=== PATIENT | female | born 1945 | race Caucasian/White ===

== ENCOUNTER → 2018-01-02 | Outpatient (CLI) | payer MEDICARE ==
--- NOTE | 2018-01-03 11:57 | MM ---
Reason for exam: screening (asymptomatic). Last mammogram was performed 1 year and 3 months ago. History: Patient is postmenopausal. Benign MG pre op needle loc RT of the right breast, October 18, 2014. Benign MG stereo VAD BX RT of the right breast, October 04, 2014. Took hormonal contraceptives for 13 years. Took estrogen for 3 years. Took progesterone for 3 years. Physical Findings: A clinical breast exam by your physician is recommended on an annual basis and results should be correlated with mammographic findings. MG 3D Screening Mammo W/Cad Bilateral CC and MLO view(s) were taken. Prior study comparison: October 01, 2016, bilateral MG 3d screening mammo w/cad. April 05, 2016, right breast MG 3d diag mammo w/cad RT. Finding #1: There is stable architectural distortion in the right breast consistent with previous surgery. Finding #2: There are typically benign calcifications in both breasts. There is a chronic nodularity in the left breast. No significant changes in finding since October 01, 2016 and April 05, 2016. ASSESSMENT: Benign, BI-RAD 2 RECOMMENDATION: Routine screening mammogram of both breasts in 1 year.
== END | disposition home or self-care (01) ==
LOC: RADMAMWWP 08:21
PROVIDERS: ATTEND Family Medicine
DX: Z12.31 Encounter for screening mammogram for malignant neoplasm of breast (principal)
CPT/HCPCS: 77063; 77067

== ENCOUNTER → 2019-01-08 | Outpatient (CLI) | payer MEDICARE ==
--- NOTE | 2019-01-09 09:57 | MM ---
Reason for exam: screening (asymptomatic). Last mammogram was performed 1 year ago. History: Patient is postmenopausal. Benign MG pre op needle loc RT of the right breast, October 18, 2014. Benign MG stereo VAD BX RT of the right breast, October 04, 2014. Took hormonal contraceptives for 13 years. Took estrogen for 3 years. Took progesterone for 3 years. Physical Findings: A clinical breast exam by your physician is recommended on an annual basis and results should be correlated with mammographic findings. MG 3D Screening Mammo W/Cad Bilateral CC and MLO view(s) were taken. Prior study comparison: January 02, 2018, bilateral MG 3d screening mammo w/cad. October 01, 2016, bilateral MG 3d screening mammo w/cad. The breast tissue is heterogeneously dense. This may lower the sensitivity of mammography. No significant changes when compared with prior studies. ASSESSMENT: Benign, BI-RAD 2 RECOMMENDATION: Routine screening mammogram of both breasts in 1 year.
== END | disposition home or self-care (01) ==
LOC: RADMAMWWP 10:10
PROVIDERS: ATTEND Family Medicine
DX: Z12.31 Encounter for screening mammogram for malignant neoplasm of breast (principal)
CPT/HCPCS: 77063; 77067

== ENCOUNTER 2019-09-17 20:10 | Emergency (ER) | payer MEDICARE ==
[2019-09-17] MEDS ORDERED: KETOROLAC 30 MG/ML 1 ML VIAL IM STA (20:49)
--- NOTE | 2019-09-17 20:50 | ED ---
Fall HPI - General Chief Complaint: Fall Stated Complaint: fall/knee & face pain Time Seen by Provider: 09/17/19 20:33 Source: patient, family Mode of arrival: ambulatory - History of Present Illness Initial Comments: Patient is 74-year-old female presenting to emergency Department with a chief complaint of a fall. Patient reports incident occurred earlier today when she tripped over a rug and fell forward causing trauma to the head. Patient reports facial bruising on the right side. Patient also reports pain in the right wrist and right knee. Patient reports she saw a full range of motion in both joints. Patient denies headache, loss of consciousness time of incident. Patient denies any nausea vomiting diarrhea. Patient denies any blurry vision or pain with extraocular movements. Patient denies any bleeding due to the injury. Patient is not on blood thinners. Patient denies taking medication to alleviate the symptoms. - Related Data Home Medications Medication Instructions Recorded Confirmed Citalopram Hydrobromide [CeleXA] 30 mg PO DAILY 04/02/14 08/21/17 Nadolol [Corgard] 40 mg PO HS 04/02/14 08/21/17 Omeprazole [PriLOSEC] 20 mg PO AC-BRKFST 04/02/14 08/21/17 Oxybutynin Chloride [Ditropan XL] 10 mg PO DAILY 04/02/14 08/21/17 Aspirin 81 mg PO DAILY 07/23/14 08/21/17 Amoxicillin 2,000 mg PO DIRECTED PRN 08/21/17 08/21/17 Atorvastatin Calcium [Lipitor] 20 mg PO DAILY 08/21/17 08/21/17 Lisinopril [Zestril] 20 mg PO DAILY 08/21/17 08/21/17 Vitamin C/Biotin [Hair, Skin and 1 tab PO DAILY 08/21/17 08/21/17 Nails] Allergies Allergy/AdvReac Type Severity Reaction Status Date / Time amoxicillin Allergy Rash/Hives Verified 09/17/19 20:28 cephalexin Allergy Rash/Hives Verified 09/17/19 20:28 clindamycin Allergy Rash/Hives Verified 09/17/19 20:28 tetracycline [Tetracycline] AdvReac Severe Nausea & Verified 09/17/19 20:27 Vomiting Review of Systems ROS Statement: Those systems with pertinent positive or pertinent negative responses have been documented in the HPI. ROS Other: All systems not noted in ROS Statement are negative. Past Medical History Past Medical History: GERD/Reflux, Hyperlipidemia, Hypertension Additional Past Medical History / Comment(s): migraines, aortic valve leakage History of Any Multi-Drug Resistant Organisms: None Reported Past Surgical History: Bladder Surgery, Joint Replacement, Tubal Ligation Additional Past Surgical History / Comment(s): ANDRZEJ KNEE REPLACEMENT, BLADDER SLING Past Anesthesia/Blood Transfusion Reactions: No Reported Reaction Past Psychological History: No Psychological Hx Reported Smoking Status: Never smoker Past Alcohol Use History: Daily Past Drug Use History: None Reported - Past Family History Sister(s) Family Medical History: Cancer, Pulmonary Embolus General Exam Limitations: no limitations General appearance: alert, in no apparent distress Head exam: Present: normocephalic. Absent: atraumatic (Facial bruising on the right side. Hematoma in the right infraorbital region. Some bruising on the nose. No septal hematoma.), normal inspection, other (Negative Bernal sign, negative hemotympanum, negative raccoon eyes.) Eye exam: Present: normal appearance, PERRL Pupils: Present: normal accommodation ENT exam: Present: normal exam, normal oropharynx (No oral trauma), mucous membranes moist, TM's normal bilaterally, normal external ear exam Neck exam: Present: normal inspection, full ROM Respiratory exam: Present: normal lung sounds bilaterally Cardiovascular Exam: Present: regular rate, normal rhythm, normal heart sounds Extremities exam: Present: normal inspection, full ROM Back exam: Present: normal inspection, full ROM Neurological exam: Present: alert, oriented X3 Psychiatric exam: Present: normal affect, normal mood Skin exam: Present: warm, dry, intact, normal color Course Vital Signs 09/17/19 09/17/19 20:28 21:31 Temperature 98.5 F Pulse Rate 61 80 Respiratory 16 18 Rate Blood Pressure 137/83 132/81 O2 Sat by Pulse 98 97 Oximetry Medical Decision Making - Medical Decision Making Patient is 74-year-old female presenting to emergency Department with chief complaint of a fall. Patient should directed and fell forward causing some trauma to the head, right knee and wrist. Physical exam is indicative of some facial bruising on the right side with a facial hematoma in the infraorbital region. There is some tenderness at the right knee inferior to the patella. Exam is also indicative of some mild tenderness along the medial aspect of the right wrist. Patient has full range of motion in the knee and the wrist. X- rays of the chest knee and wrist are negative. CT of brain and C-spine is negative for acute hemorrhage, fractures or midline shift. Facial CT is also showing facial hematoma and abrasions of injury. Patient is not on blood thinners. Patient vised alternate between Tylenol and ibuprofen for pain control. Strict return parameters were thoroughly discussed the patient is understanding ago. Case discussed with physician. Disposition Clinical Impression: Fall, Traumatic ecchymosis of face Disposition: HOME SELF-CARE Condition: Stable Instructions (If sedation given, give patient instructions): Fall Prevention (ED) Additional Instructions: Please follow up primary care. Please return to emergency department if symptoms worsen. Is patient prescribed a controlled substance at d/c from ED?: No Referrals: Ro Barrett MD [Primary Care Provider] - 1-2 days Time of Disposition: 22:18
--- NOTE | 2019-09-17 21:23 | CT ---
EXAMINATION TYPE: CT facial bones wo con DATE OF EXAM: 09/17/2019 COMPARISON: None HISTORY: Fall, bilateral orbital bruising. CT DLP: 1183.7 mGycm Automated exposure control for dose reduction was used. TECHNIQUE: CT scan of the sinuses is performed without contrast, axial images are obtained, coronal r eformatted images are also reviewed. FINDINGS: The mandibular ring is intact. Temporomandibular joints appear normal. Zygomatic arches dinorah ear normal. Nasal bone is intact. Orbital margins are intact. There is no evidence of a blowout fract ure. Maxilla is intact. There is minimal ethmoid sinus mucosal thickening on the left side. There is mucosal thickening left side of the sphenoid sinus. I see no bony destructive process. IMPRESSION: There is some left-sided sphenoid and ethmoid sinusitis. No fracture seen. Right frontal scalp soft tissue swelling noted. Right frontal scalp hematoma.
--- NOTE | 2019-09-17 21:25 | CT ---
EXAMINATION TYPE: CT brain feliz benson DATE OF EXAM: 09/17/2019 COMPARISON: None HISTORY: Fall, bilateral orbital bruising. CT DLP: 1183.7 mGycm Automated exposure control for dose reduction was used. TECHNIQUE: CT scan of the head and cervical spine are performed without contrast. FINDINGS: Ventricles have normal size. There is no mass effect nor midline shift. There is no sign of intracranial hemorrhage. There is mild atrophy appropriate for age. Calvarium is intact. There is right frontal scalp hematoma. The skull base is intact. There is some straightening of the cervical spine. There is a a few millimeter anterior subluxation o f C3 in relation to C4. There is narrowing of C4-5 C5-6 disc spaces with spurring. There is no compre ssion fracture. Posterior elements are intact. There is mild hypertrophic multilevel facet arthropath y. 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 Degenerative subluxation at C3-4. No fracture s een. Right frontal scalp hematoma. No intracranial abnormality.
--- NOTE | 2019-09-17 21:26 | XR ---
EXAMINATION TYPE: XR wrist complete RT DATE OF EXAM: 09/17/2019 COMPARISON: NONE HISTORY: Wrist pain TECHNIQUE: 4 views FINDINGS: There is narrowing and spurring at the first carpometacarpal joint. There is narrowing and spurring at the scaphoid trapezium joint. There are small degenerative cystic changes in the lunate a nd scaphoid bone. Distal radius and ulna appear intact. IMPRESSION: No fracture seen. Osteoarthritic changes.
[2019-09-17 21:38] VITALS: RESP 18
--- NOTE | 2019-09-17 22:03 | XR ---
EXAMINATION TYPE: XR knee complete RT DATE OF EXAM: 09/17/2019 COMPARISON: NONE HISTORY: Knee pain TECHNIQUE: 3 views FINDINGS: There is knee prosthesis. I see no fracture nor dislocation. I see no sign of loosening. IMPRESSION: No fracture seen.
--- NOTE | 2019-09-17 22:04 | XR ---
EXAMINATION TYPE: XR chest 2V DATE OF EXAM: 09/17/2019 COMPARISON: 08/21/2017 HISTORY: Pain TECHNIQUE: Frontal and lateral views of the chest are obtained. FINDINGS: Heart and mediastinum are normal. Lungs are clear. Diaphragm is normal. Bony thorax is int act. IMPRESSION: Normal chest. No change.
[2019-09-17 22:26] VITALS: BP 144/84; PULSE 71; TEMP 98
== END 2019-09-17 22:26 | disposition home or self-care (01) ==
LOC: EC 20:10
DX: S00.33XA Contusion of nose, initial encounter (principal); S00.83XA Contusion of other part of head, initial encounter; S89.91XA Unspecified injury of right lower leg, initial encounter; S69.91XA Unspecified injury of right wrist, hand and finger(s), initial encounter; K21.9 Gastro-esophageal reflux disease without esophagitis; E78.5 Hyperlipidemia, unspecified; I10 Essential (primary) hypertension; Z88.0 Allergy status to penicillin; Z88.1 Allergy status to other antibiotic agents; Z79.82 Long term (current) use of aspirin; Z79.899 Other long term (current) drug therapy; Z86.79 Personal history of other diseases of the circulatory system; Z96.653 Presence of artificial knee joint, bilateral; W01.0XXA Fall on same level from slipping, tripping and stumbling without subsequent striking against object, initial encounter; Y92.009 Unspecified place in unspecified non-institutional (private) residence as the place of occurrence of the external cause
CPT/HCPCS: 73110; 73562; 71046; 72125; 70486; 70450; 99284; 96372; J1885

== ENCOUNTER → 2020-05-03 | Outpatient (CLI) | payer MEDICARE ==
--- NOTE | 2020-05-03 16:22 | BD ---
EXAMINATION TYPE: Axial Bone Density DATE OF EXAM: 05/03/2020 COMPARISON: NONE CLINICAL HISTORY: 74 YR OLD FEMALE...ICD-10 CODE: M81.0 OSTEOPOROSIS Height: 62.5 Weight: 175 FRAX RISK QUESTIONS: History of Fracture in Adulthood: YES RISK FACTORS HISTORY OF: HX OF RT HUMERUS FX AND RT ANKLE, OVER THE AGE OF 51 WHEN OCCURED Postmenopausal woman: YES, AT AGE 53 Take estrogen and/or progesterone medications: IN THE PAST FOR ABOUT 3 YRS, NONE NOW Lost more than 2 inches in height since high school: YES Hyperparathyroidism: NO Adrenal Insufficiency: NO MEDICATIONS: Osteoporosis Medications: YES, FOSAMAX, 6 MOS Additional Medications: BP MEDS, CELEXA, REFLUX MEDS, STATIN FOR CHOLESTEROL, CALCIUM AND VIT D Additional History: HYPERTENSION, CHOLESTEROL, REFLUX EXAM MEASUREMENTS: Bone mineral densitometry was performed using the [employer] System. Bone mineral density as measured about the Lumbar spine is: ----- L1-L4(G/cm2): 1.263 T Score Values are as follows: ----- L1: -0.3 ----- L2: 0.4 ----- L3: 0.6 ----- L4: 1.9 ----- L1-L4: 0.7 Bone mineral density THIS IS PTS FIRST BONE DENSITY STUDY WITH [facility] Bone mineral density about the R hip (g/cm2): 0.751 Bone mineral density about the L hip (g/cm2): 0.744 T Score values are as follows: -----R Neck: -2.2 -----L Neck: -2.6 -----R Total: -2.0 -----L Total: -2.1 Bone mineral density FIRST BONE DENSITY STUDY WITH [facility] FRAX%s: THERE IS A 24.8% CHANCE FOR A MAJOR OSTEOPOROTIC FX AND A 7.5% FOR HIP....PROBABILITY FOR F X IN 10 YRS TIME IMPRESSION: Osteoporosis (T Score less than -2.5). There is increased fracture risk and therapy is usually indicated based on age. Re-Screen 1-2 years. NOTE: T-SCORE=SD OF THE YOUNG ADULT MEAN.
--- NOTE | 2020-05-04 13:30 | MM ---
Reason for exam: screening (asymptomatic). Last mammogram was performed 1 year and 4 months ago. History: Patient is postmenopausal. Benign MG pre op needle loc RT of the right breast, October 18, 2014. Benign MG stereo VAD BX RT of the right breast, October 04, 2014. Took hormonal contraceptives for 13 years. Took estrogen for 3 years. Took progesterone for 3 years. Physical Findings: A clinical breast exam by your physician is recommended on an annual basis and results should be correlated with mammographic findings. MG 3D Screening Mammo W/Cad Bilateral CC and MLO view(s) were taken. Prior study comparison: January 08, 2019, bilateral MG 3d screening mammo w/cad. January 02, 2018, bilateral MG 3d screening mammo w/cad. There are scattered fibroglandular densities. No significant changes when compared with prior studies. ASSESSMENT: Benign, BI-RAD 2 RECOMMENDATION: Routine screening mammogram of both breasts in 1 year.
== END | disposition home or self-care (01) ==
LOC: RADMAMWWP 08:10
PROVIDERS: ATTEND Family Medicine
DX: Z12.31 Encounter for screening mammogram for malignant neoplasm of breast (principal); M81.0 Age-related osteoporosis without current pathological fracture
CPT/HCPCS: 77063; 77067; 77080

== ENCOUNTER → 2020-05-26 | Outpatient (CLI) | payer MEDICARE ==
[2020-05-26 08:57] LABS: African American GFR (CKD) >90 (>60 ml/min/1.73 sqM); Blood Urea Nitrogen 17 mg/dL (7-17); Non-African American GFR(CKD) 79 (>60 ml/min/1.73 sqM)
--- NOTE | 2020-05-26 10:30 | CT ---
EXAMINATION TYPE: CT angio neck DATE OF EXAM: 05/26/2020 HISTORY: Vertigo with unsteady gait COMPARISON: CT brain 09/17/2019 CT DLP: 336 mGycm. Automated Exposure Control for Dose Reduction was Utilized. TECHNIQUE: CTA scan of the neck is performed with IV Contrast, patient injected with 65 mL of Isovue 370, axial images are obtained, coronal and sagittal reformatted images are reviewed. Three-D recons tructed images are created on an independent workstation and reviewed. FINDINGS: Hypertrophic and degenerative change of the spine. Mild generalized degenerative changes. E xtensive changes of sinusitis involving the left ethmoid and maxillary sinuses. Standard three-vessel anatomy. Carotid bifurcations are widely patent bilaterally with no significant stenosis. IMPRESSION: 1. No significant abnormality is seen. 2. Severe left-sided chronic sinusitis
== END | disposition home or self-care (01) ==
LOC: RADCTMAIN 08:24
PROVIDERS: ATTEND Family Medicine
DX: R42 Dizziness and giddiness (principal)
CPT/HCPCS: 82565; 84520; 70498; 36415; Q9967

== ENCOUNTER → 2020-09-09 | Outpatient (CLI) | payer MEDICARE ==
[~2020-09-09] MED LIST: SODIUM CHLORIDE 0.9% 500 ML 500 ML in EMPTY BAG 1 BAG IV PRN; ZOLEDRONIC ACID 5 MG in SODIUM CHLORIDE 0.9% 100 ML IV NR
[2020-09-09 10:44] VITALS: BP 152/60; PULSE 52; RESP 16; TEMP 97.8
== END | disposition home or self-care (01) ==
LOC: PROCWHC3 10:35
PROVIDERS: ATTEND Family Medicine
DX: M81.0 Age-related osteoporosis without current pathological fracture (principal)
CPT/HCPCS: 96365; J3489

== ENCOUNTER → 2021-05-16 | Outpatient (CLI) | payer MEDICARE ==
--- NOTE | 2021-05-16 13:05 | MM ---
Reason for exam: screening (asymptomatic). Last mammogram was performed 1 year ago. History: Patient is postmenopausal. Benign MG pre op needle loc RT of the right breast, October 18, 2014. Benign MG stereo VAD BX RT of the right breast, October 04, 2014. Took hormonal contraceptives for 13 years. Took estrogen for 3 years. Took progesterone for 3 years. Physical Findings: A clinical breast exam by your physician is recommended on an annual basis and results should be correlated with mammographic findings. MG 3D Screening Mammo W/Cad Bilateral CC and MLO view(s) were taken. Prior study comparison: May 03, 2020, bilateral MG 3d screening mammo w/cad. January 08, 2019, bilateral MG 3d screening mammo w/cad. There are scattered fibroglandular densities. There is a grouping of calcifications in the right outer central breast at middle depth and diagnostic mammogram is recommended. Post operative right breast. ASSESSMENT: Incomplete: need additional imaging evaluation, BI-RAD 0 RECOMMENDATION: Special view mammogram of the right breast. [facility] will attempt to contact patient to return for supplemental views.
== END | disposition home or self-care (01) ==
LOC: RADMAMWWP 08:20
PROVIDERS: ATTEND Family Medicine
DX: Z12.31 Encounter for screening mammogram for malignant neoplasm of breast (principal)
CPT/HCPCS: 77063; 77067

== ENCOUNTER → 2021-05-30 | Outpatient (CLI) | payer MEDICARE ==
--- NOTE | 2021-05-30 12:06 | MM ---
Reason for exam: additional evaluation requested from abnormal screening. Last mammogram was performed less than 1 month ago. History: Patient is postmenopausal. Benign MG pre op needle loc RT of the right breast, October 18, 2014. Benign MG stereo VAD BX RT of the right breast, October 04, 2014. Took hormonal contraceptives for 13 years. Took estrogen for 3 years. Took progesterone for 3 years. Physical Findings: Nurse did not find any significant physical abnormalities on exam. MG 3D Work Up W/Cad RT CC with magnification, ML with magnification, and ML view(s) were taken of the right breast. Prior study comparison: May 16, 2021, bilateral MG 3d screening mammo w/cad. May 03, 2020, bilateral MG 3d screening mammo w/cad. January 08, 2019, bilateral MG 3d screening mammo w/cad. January 02, 2018, bilateral MG 3d screening mammo w/cad. There are scattered fibroglandular densities. Heterogeneous segmental calcifications spanning 3.5cm 8 o'clock right breast are suspicious. These results were verbally communicated with the patient and result sheet given to the patient on 05/30/21. ASSESSMENT: Suspicious, BI-RAD 4 RECOMMENDATION: Stereotactic core biopsy of the right breast. Called office with mammographic findings and has scheduled an appointment for the patient for 06/09/[address] Barrett. Biopsy scheduled for 06/05/21 at 10:30. PRELIMINARY REPORT CALLED AND FAXED TO DR. BARRETT ON 05/30/21.
== END | disposition home or self-care (01) ==
LOC: RADMAMWWP 10:26
PROVIDERS: ATTEND Family Medicine
DX: R92.8 Other abnormal and inconclusive findings on diagnostic imaging of breast (principal)
CPT/HCPCS: 77065; G0279; 77061

== ENCOUNTER → 2021-06-05 | Day surgery (SDC) | payer MEDICARE ==
[2021-06-05 09:57] VITALS: RESP 16
[2021-06-05 11:59] VITALS: BP 132/70; PULSE 52; TEMP 98.5
--- NOTE | 2021-06-05 14:08 | MM ---
EXAMINATION TYPE: MG stereo VAD BX RT DATE OF EXAM: 06/05/2021 COMPARISON: 05/30/2021 mammogram CLINICAL HISTORY: Abnormal calcifications TECHNIQUE: Stereotactic guided core biopsy of right breast. FINDINGS: The procedure of stereotactic guided core biopsy was explained to the patient. Benefits, alternatives, and risks were discussed. An informed consent was then obtained. [facility] Shortness pathway was lateral approach. Dr. Lindo performed targeting and the procedure. A vacuum assisted biopsy gun was used to obtain multiple (6) core samples. The patient tolerated the procedure well without any immediate complication. The patient was kept in the radiology department for short stay after the procedure and then discharged home in stable condition. Specimen radiograph: Targeted calcifications are identified in specimen mammogram. Post biopsy mammogram shows the clip to appear in satisfactory position relative to the targeted area of concern on the preprocedure images. IMPRESSION: 1. 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 Recommendation Surgical consult of the right breast. Note that there are residual microcalcifications which should be included in the excision. MTDD
== END ==
LOC: RADMAMWWP 09:48
PROVIDERS: ATTEND Family Medicine
DX: D05.11 Intraductal carcinoma in situ of right breast (principal); Z17.0 Estrogen receptor positive status [ER+]; Z88.1 Allergy status to other antibiotic agents; Z88.0 Allergy status to penicillin
CPT/HCPCS: 19081; 88305; 88342; 88341; A4648; J2001

== ENCOUNTER → 2021-06-05 | Outpatient (CLI) | payer MEDICARE ==
--- NOTE | 2021-06-05 14:08 | MM ---
EXAMINATION TYPE: MG stereo VAD BX RT DATE OF EXAM: 06/05/2021 COMPARISON: 05/30/2021 mammogram CLINICAL HISTORY: Abnormal calcifications TECHNIQUE: Stereotactic guided core biopsy of right breast. FINDINGS: The procedure of stereotactic guided core biopsy was explained to the patient. Benefits, a lternatives, and risks were discussed. An informed consent was then obtained. The [facility] pathway for biopsy was chosen. Shortness pathway was lateral approach. Dr. Lindo per formed targeting and the procedure. A vacuum assisted biopsy gun was used to obtain multiple (6) cor e samples. The patient tolerated the procedure well without any immediate complication. The patient was kept in the radiology department for short stay after the procedure and then discharged home in stable condi tion. Specimen radiograph: Targeted calcifications are identified in specimen mammogram. Post biopsy mammogram shows the clip to appear in satisfactory position relative to the targeted area of concern on the preprocedure images. IMPRESSION: 1. Successful stereotactic core biopsy right breast calcifications
== END | disposition home or self-care (01) ==
LOC: LABWHC1 09:35
PROVIDERS: ATTEND Radiology Diagnostic Radiology
DX: Z09 Encounter for follow-up examination after completed treatment for conditions other than malignant neoplasm (principal)
CPT/HCPCS: 19081; A4648

== ENCOUNTER → 2021-06-22 | Outpatient (CLI) | payer MEDICARE ==
[2021-06-22 11:14] VITALS: BP 152/80; PULSE 58; RESP 18; TEMP 98.4
--- NOTE | 2021-06-22 12:20 | P.GSHP ---
History of Present Illness H&P Date: 06/22/21 Chief Complaint: DCIS right breast Brianne is a 75 year old white female seen in consultation for Dr. 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 She had a routine mammogram bilateral mammogram which led to a right breast diagnostic mammogram performed on 84 diagnostic mammogram revealed heterogeneous segmental calcifications. Approximately 3.5 cm at the 8 o'clock position. She underwent a stereotactic core biopsy which revealed DCIS intermediate grade. This is ER positive and WI positive. She has not felt anything in her breast prior to the mammogram. Approximately 7 years ago she had a right breast stereotactic core biopsy which was of concern, leading to a needle local excisional biopsy. This was benign. She is not complaining of any lumps masses or nodules of concern in either breast. She is not complaining of any nipple discharge or skin changes. She has not had any recent trauma or infection in the breast. She did develop a rash and proximity to the biopsy approximately 24 hours ago. She has had shingles in the past and this looks similar to shingles. Caffeine: 3 cups coffee/day nicotine: none; second hand smoke in the past [id number] chocolate: rare Family history: sister: lung cancer, smoker Hormonal history: Menarche: 13 , breast fed: no; age at : 17 menopause: 51 BCP: 13 years hormones: none; used fro 1 year at menopause Surgical History: 1. bilateral knee replacement 2. tubaligation 3. Bladder sling 4. Prior stereo biopsy right breast leading to an open biopsy Medical History: 1. leaking cardiac valve Social History: nicotine: Negative Alcohol: 2-3 drinks wine or vodka/ 6 days /week drugs: none - Constitutional Constitutional: Denies chills, Denies fever - EENT Eyes: denies blurred vision, denies pain Ears: bilateral: decreased hearing, deny: tinnitus Ears, nose, mouth and throat: Reports headache, Denies sore throat - Breasts Breasts: bilateral: as per HPI - Cardiovascular Comment: leaking aortic valve/ uses aspirin daily, high cholesterol Cardiovascular: Reports high blood pressure, Reports shortness of breath, Denies chest pain - Respiratory Comment: chronic cough Respiratory: Reports cough - Gastrointestinal Gastrointestinal: Reports constipation, Denies abdominal pain, Denies diarrhea, Denies nausea, Denies vomiting - Genitourinary (Female) Comment: bladder sling Genitourinary: Denies dysuria, Denies hematuria - Menstruation Menstruation: Reports postmenopausal - Musculoskeletal Musculoskeletal: Reports as per HPI - Integumentary Comment: rash on right breast - Neurological Comment: history of shingles Neurological: Denies numbness, Denies weakness - Psychiatric Psychiatric: Denies anxiety, Denies depression - Endocrine Endocrine: Denies fatigue, Denies weight change - Hematologic/Lymphatic Hematologic/Lymphatic: Reports as per HPI - Allergic/Immunologic Allergic/Immunologic: Reports as per HPI Past Medical History Past Medical History: GERD/Reflux, Hyperlipidemia, Hypertension Additional Past Medical History / Comment(s): migraines, aortic valve leakage History of Any Multi-Drug Resistant Organisms: None Reported Past Surgical History: Bladder Surgery, Joint Replacement, Tubal Ligation Additional Past Surgical History / Comment(s): ANDRZEJ KNEE REPLACEMENT, BLADDER SLING Past Anesthesia/Blood Transfusion Reactions: No Reported Reaction Past Psychological History: No Psychological Hx Reported Smoking Status: Never smoker Past Alcohol Use History: Daily Additional Past Alcohol Use History / Comment(s): one or two glass of wine daily. Past Drug Use History: None Reported - Past Family History Sister(s) Family Medical History: Cancer, Pulmonary Embolus Additional Family Medical History / Comment(s): lung cancer Medications and Allergies Home Medications Medication Instructions Recorded Confirmed Type Citalopram Hydrobromide [CeleXA] 30 mg PO DAILY 04/02/14 06/22/21 History Nadolol [Corgard] 40 mg PO HS 04/02/14 06/22/21 History Omeprazole [PriLOSEC] 20 mg PO AC-BRKFST 04/02/14 06/22/21 History Oxybutynin Chloride [Ditropan XL] 10 mg PO DAILY 04/02/14 06/22/21 History Aspirin 81 mg PO DAILY 07/23/14 06/22/21 History Atorvastatin Calcium [Lipitor] 20 mg PO DAILY 08/21/17 06/22/21 History lisinopriL [Zestril] 20 mg PO DAILY 08/21/17 06/22/21 History Allergies Allergy/AdvReac Type Severity Reaction Status Date / Time amoxicillin Allergy Rash/Hives Verified 06/22/21 11:11 cephalexin Allergy Rash/Hives Verified 06/22/21 11:11 clindamycin Allergy Rash/Hives Verified 06/22/21 11:11 tetracycline [Tetracycline] AdvReac Severe Nausea & Verified 06/22/21 11:11 Vomiting Surgical - Exam Vital Signs Temp Pulse Resp BP Pulse Ox 98.4 F 58 L 18 152/80 96 06/22/21 11:12 06/22/21 11:12 06/22/21 11:12 06/22/21 11:12 06/22/21 11:12 BMI 30.6 - General no distress - Eyes normal ocular movement - ENT no hearing loss - Neck trachea midline - Respiratory normal respiratory effort, clear to auscultation - Cardiovascular Rhythm: regular Heart Sounds: normal: S1, S2 - Abdomen Abdomen: soft - Integumentary rash lateral right breast - Neurologic no disoriented, no combative - Musculoskeletal normal gait - Psychiatric oriented to time, oriented to person, oriented to place, speech is normal, m moisés intact Breast Exam: BRA: 40C inspection: Bilateral grade 3 ptosis palpation: Right breast: Multi-positional exam fibrocystic changes no dominant masses or nodules of concern, rash lateral aspect of the breast shingles versus bug bites Right axilla: No adenopathy of concern Left breast: Multi-positional exam fibrocystic changes no dominant masses or nodules of concern Left axilla: No adenopathy of concern Fungal infection under her left breast Bilateral shoulder ruts secondary to heavy breast Results Mammogram reviewed with Dr. Gould/approximately 8 to 9 o'clock position approximately 4 x 3 cm area of calcification biopsy-proven DCIS Assessment and Plan Assessment: Impression: 1. Leaking aortic valve 2. DCIS right breast 3. Macromastia 4. Bilateral shoulder rutting secondary to large size of breast 5. fungal infection under breast Plan: 1. Needle localization lumpectomy right breast via a mammoplasty approach, sentinel node in injection, sentinel node biopsy right, possible axillary node disection. include but are not limited to bleeding, infection, reaction to the anesthetic. Additionally lymphedema, or decreased sensation to the inner arm. node dissection Risks and benefits of the procedures were discussed with the patient. The patient understands that the lesion is approximately 4 cm in size and although it was DCIS that there may be an area of invasion. She therefore would prefer that a sentinel node biopsy be performed. Additionally she understands that after the age of 71 there is some question that needle localization may not be necessary however secondary to her being very healthy she would like to proceed with a sentinel node biopsy. We have discussed lumpectomy versus mastectomy. The patient would prefer a lumpectomy. We have discussed lumpectomy via a standard incision versus a mammoplasty and despite the risks which were discussed with the patient and her friend she would like to proceed with a reduction mammoplasty. Risks include but are not limited to bleeding, infection, reaction to the anesthetic. Additionally if the margins were to be positive is possible he would have to do a reexcision of the margins. She understands and wishes to proceed. Risk of the axillary disection include but are not limited to bleeding, infection, reaction to the anesthetic. Additionally lymphedema, or decreased sensation to the inner arm. node dissection
== END | disposition home or self-care (01) ==
LOC: WWCWWP 10:39
PROVIDERS: ATTEND Surgery
DX: Z53.9 Procedure and treatment not carried out, unspecified reason (principal)

== ENCOUNTER → 2021-07-06 | Outpatient (CLI) | payer MEDICARE ==
--- NOTE | 2021-07-06 11:44 | XR ---
EXAMINATION TYPE: XR chest 2V DATE OF EXAM: 07/06/2021 COMPARISON: NONE TECHNIQUE: PA and lateral views submitted. HISTORY: Preop FINDINGS: The lungs are clear and there is no pneumothorax, pleural effusion, or focal pneumonia. Heart size normal. No overt failure. Degenerative changes of the spine. IMPRESSION: 1. No acute process.
== END | disposition home or self-care (01) ==
LOC: RADXRMAIN 10:38
PROVIDERS: ATTEND Family Medicine
DX: Z01.818 Encounter for other preprocedural examination (principal)
CPT/HCPCS: 71046

== ENCOUNTER → 2021-07-24 | Outpatient (CLI) | payer MEDICARE ==
[2021-07-24 11:25] LABS: Basophils % (A) 1 %; Eosinophils # (A) 0.2 k/uL (0-0.7); Eosinophils % (A) 4 %; HGB 13.1 gm/dL (11.4-16.0); Lymphocytes # (A) 1.7 k/uL (1.0-4.8); Lymphocytes % (A) 29 %; MCH 31.6 pg (25.0-35.0); MCHC 31.9 g/dL (31.0-37.0); MCV 99.2 fL (80.0-100.0); Mean Platelet Volume 8.5; Monocytes # (A) 0.3 k/uL (0-1.0); Monocytes % (A) 5 %; Neutrophils # (A) 3.6 k/uL (1.3-7.7); Neutrophils % (A) 61 %; Platelet Count 276 k/uL (150-450); RBC 4.13 m/uL (3.80-5.40); RDW 12.5 % (11.5-15.5); WBC 5.9 k/uL (3.8-10.6)
[2021-07-24 11:32] LABS: INR 0.9 (<1.2)
[2021-07-24 11:38] LABS: African American GFR (CKD) 84 (>60 ml/min/1.73 sqM); Anion Gap 6 mmol/L; Blood Urea Nitrogen 12 mg/dL (7-17); Calcium 9.4 mg/dL (8.4-10.2); Carbon Dioxide 31 mmol/L (22-30); Chloride 102 mmol/L (98-107); Glucose 112 mg/dL (74-99); Non-African American GFR(CKD) 73 (>60 ml/min/1.73 sqM); Potassium 4.1 mmol/L (3.5-5.1); Sodium 139 mmol/L (137-145)
== END | disposition home or self-care (01) ==
LOC: LABWHC1 10:23
PROVIDERS: ATTEND Family Medicine
DX: Z01.812 Encounter for preprocedural laboratory examination (principal)
CPT/HCPCS: 83880; 80048; 85025; 85610; 87635; 36415; C9803

== ENCOUNTER 2021-07-25 07:21 | Day surgery (SDC) | payer MEDICARE ==
--- NOTE | 2021-07-24 11:32 | P.PN ---
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 She had a routine mammogram bilateral mammogram which led to a right breast diagnostic mammogram performed on 84 diagnostic mammogram revealed heterogeneous segmental calcifications. Approximately 3.5 cm at the 8 o'clock position. She underwent a stereotactic core biopsy which revealed DCIS intermediate grade. This is ER positive and MT positive. She has not felt anything in her breast prior to the mammogram. Approximately 7 years ago she had a right breast stereotactic core biopsy which was of concern, leading to a needle local excisional biopsy. This was benign. She is not complaining of any lumps masses or nodules of concern in either breast. She is not complaining of any nipple discharge or skin changes. She has not had any recent trauma or infection in the breast. She did develop a rash following the biopsy which she states is completely resolved at this time. Caffeine: 3 cups coffee/day nicotine: none; second hand smoke in the past [id number] chocolate: rare Family history: sister: lung cancer, smoker Hormonal history: Menarche: 13 , breast fed: no; age at : 17 menopause: 51 BCP: 13 years hormones: none; used fro 1 year at menopause Surgical History: 1. bilateral knee replacement 2. tubaligation 3. Bladder sling 4. Prior stereo biopsy right breast leading to an open biopsy Medical History: 1. leaking cardiac valve Social History: nicotine: Negative Alcohol: 2-3 drinks wine or vodka/ 6 days /week drugs: none - Constitutional Constitutional: Denies chills, Denies fever - EENT Eyes: denies blurred vision, denies pain Ears: bilateral: decreased hearing, deny: tinnitus Ears, nose, mouth and throat: Reports headache, Denies sore throat - Breasts Breasts: bilateral: as per HPI - Cardiovascular Comment: leaking aortic valve/ uses aspirin daily, high cholesterol Cardiovascular: Reports high blood pressure, Reports shortness of breath, Denies chest pain - Respiratory Comment: chronic cough Respiratory: Reports cough - Gastrointestinal Gastrointestinal: Reports constipation, Denies abdominal pain, Denies diarrhea, Denies nausea, Denies vomiting - Genitourinary (Female) Comment: bladder sling Genitourinary: Denies dysuria, Denies hematuria - Menstruation Menstruation: Reports postmenopausal - Musculoskeletal Musculoskeletal: Reports as per HPI - Integumentary Comment: rash on right breast - Neurological Comment: history of shingles Neurological: Denies numbness, Denies weakness - Psychiatric Psychiatric: Denies anxiety, Denies depression - Endocrine Endocrine: Denies fatigue, Denies weight change - Hematologic/Lymphatic Hematologic/Lymphatic: Reports as per HPI - Allergic/Immunologic Allergic/Immunologic: Reports as per HPI Objective - Exam BMI 30.6 - Constitutional General appearance: Present: cooperative - EENT Eyes: Present: EOMI ENT: Present: hearing grossly normal - Neck Neck: Present: normal ROM - Respiratory Respiratory: bilateral: CTA - Cardiovascular Heart sounds: normal: S1, S2 - Gastrointestinal General gastrointestinal: Present: soft - Integumentary Integumentary: Present: normal turgor - Musculoskeletal Musculoskeletal: Present: gait normal - Psychiatric Psychiatric: Present: A&O x's 3 - Additional findings Additional findings: Breast examination: Prior: 40 mL Inspection: Bilateral grade 3 ptosis Right breast: Multi-positional exam fibrocystic changes no dominant masses or nodules of concern Right axilla: No adenopathy of concern Left breast: Multi-positional exam fibrocystic changes no dominant masses or nodules of concern Left axilla: No adenopathy of concern Bilateral shoulder rest secondary to heavy breast Mammogram reviewed with Dr. Gould approximately 8 to 9 o'clock position proximally 4 x 3 cm area of calcification biopsy-proven DCIS Assessment and Plan Assessment: Impression: 1. Leaking aortic valve 2. DCIS right breast approximately 4 x 3 cm 3. Macromastia 4. Bilateral shoulder leading secondary to large size of breast Plan: Plan: 1. Needle localization lumpectomy (the area is to be bracketed ) right breast via a mammoplasty approach, sentinel node injection sentinel node biopsy right, possible axillary node dissection, possible onco-plastic tissue transfer 2. We have obtained cardiac clearance 3. We have obtained clearance from Dr. Barrett Risks and benefits of the procedure were discussed with the patient. The patient understands that risks include but are not limited to bleeding, infection, reaction to the anesthetic. Additionally lymphedema or decreased sensation to the inner arm may occur. The patient understands that the lesion is approximately 4 cm in size and although it is DCIS or maybe an area of inflammation. She therefore would prefer the sentinel node biopsy be performed. Additionally she understands that after the age of 71 there is some question that sentinel node biopsy may be necessary however secondary to her being very healthy she would like to proceed with a sentinel node biopsy. Her case has been presented at tumor board and this concurrence with the above. We have discussed lumpectomy versus mastectomy. The patient would prefer a lumpectomy. We discussed lumpectomy via standard incision versus a mammoplasty and despite the risks which were discussed with the patient and her friend she would like to proceed with reduction mammoplasty approach. (Risks include but are not limited to bleeding, infection, reaction to the anesthetic. Additionally the margins were to be positive is possible that have to do a reexcision of the margins. She understands and wishes to proceed. Risk of axillary sampling and/or dissection include but are not limited to bleeding, infection, reaction to the anesthetic. Additionally lymphedema decreased sensation to the inner arm could occur.
[2021-07-24 13:33] VITALS: BMI 30.6
[~2021-07-25 07:21] MED LIST changes: +DEXAMETHASONE SOD PHOSPHATE 4 MG/ML 1 ML VIAL IV ONE; +HEPARIN SODIUM,PORCINE/PF 5,000 UNIT/0.5 ML SYRINGE SQ PRN; +HYDROmorphone 0.5 MG/0.5 ML SYRINGE IVP PRN; +LACTATED RINGERS 1,000 ML IV SCH; +ONDANSETRON 4 MG/2 ML VIAL IVP ONE; +Pre Op ABX Message 1 EACH MISC MISCELLANE ONE; -SODIUM CHLORIDE 0.9% 500 ML 500 ML in EMPTY BAG 1 BAG IV PRN; -ZOLEDRONIC ACID 5 MG in SODIUM CHLORIDE 0.9% 100 ML IV NR
[2021-07-25] MEDS ORDERED: LIDOCAINE 1% INJ 10MG/ML (20 ML MDV) SQ ONE ×4 (09:05→13:37)
--- NOTE | 2021-07-25 10:04 | NM ---
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 TECHNIQUE AND FINDINGS: The procedure of sentinel lymph node injection was explained to the patient. The benefits, alternatives, and risks were discussed. An informed consent was then obtained. Overlying skin is cleaned with sterile alcohol. Following this, 510 uCi Tc99m Tilmanocept was inject ed in the upper outer aspect of the right nipple intradermally. The patient tolerated the procedure well without any immediate complication. The patient was kept in the radiology department for short stay after the procedure and then taken to surgery for surgical p rocedure what is presumed intraoperative gamma probe will be used for sentinel lymph node detection. IMPRESSION: Right breast radiotracer injection for sentinel node localization as above.
[2021-07-25] MEDS ORDERED: fentaNYL (PF) 50 MCG/ML 2 ML AMP ONE (10:11)
[2021-07-25] MEDS ORDERED: PROPOFOL 10 MG/ML 20 ML VIAL IV ONE (10:11)
[2021-07-25] MEDS ORDERED: SUCCINYLCHOLINE CHLORIDE 100 MG/5 ML SYR IV ONE (10:11)
[2021-07-25] MEDS ORDERED: LIDOCAINE 1% INJ 10MG/ML (20 ML MDV) ONE (10:11)
[2021-07-25] MEDS ORDERED: GLYCOPYRROLATE 0.2 MG/ML 2 ML VIAL ONE (10:11)
[2021-07-25] MEDS ORDERED: ePHEDrine SULFATE/0.9% NACL/PF 50 MG/5 ML SYRINGE IV ONE (10:11)
[2021-07-25] MEDS ORDERED: CIPROFLOXACIN/DEXTROSE PMX 400 MG in DEXTROSE/WATER 1 200ML.BAG IVPB STA (10:12)
--- NOTE | 2021-07-25 10:27 | P.NAPBC ---
NAPBC Queries - NAPBC Queries Was patient's case review presented at [facility] tumor board? If no, comment.: Yes Was patient's pathology reviewed at [facility]? If no, comment.: Yes Was breast conservation surgery offered? If no, comment.: Yes Was sentinel node biopsy offered? If no, comment.: Yes Was diagnosis confirmed by percutaneous core biopsy? If no, comment.: Yes Is patient mastectomy patient?: No Was a preop referral to reconstructive surgeon offered?: Yes Clinical Stage: stage 0
--- NOTE | 2021-07-25 13:36 | P.OP ---
Date of Procedure: 07/25/21 Preoperative Diagnosis: DCIS of the right breast Postoperative Diagnosis: Same Procedure(s) Performed: Embudo node biopsy, right breast lumpectomy with onco-plastic tissue transfer of 76 cm, reduction mammoplasty Anesthesia: STEVE Surgeon: Ene Smith Estimated Blood Loss (ml): 50 IV fluids (ml): 800 Pathology: other (Breast tissue, sentinel node biopsy) Condition: stable Disposition: same day Indications for Procedure: Ductal carcinoma in situ right breast Operative Findings: Fibrofatty breast tissue Description of Procedure: There is a 76-year-old white female who was diagnosed with approximately 2.5 cm area of ductal carcinoma in situ in the right breast. Diagnosis was made by a core biopsy. After discussion the patient wished for a lumpectomy the reduction mammoplasty approach and sentinel node biopsy. Risks and benefits of the procedure were discussed with the patient, she understood and wished to proceed. The patient was taken first to the radiology department. The area of concern was bracketed. A radioactive tracer was injected for the sentinel node. The patient was then brought to the operative suite. Following induction of anesthesia the neoprobe was used to interrogate the axilla. An area of increased radioactivity was identified. Prior to coming to the operative suite the patient was marked in the preoperative area for the reduction mammoplasty. The area of the axilla was approached initially. An incision was made and carried down to the area of increased radioactivity. A radioactive lymph node was identified and was removed. The 10 second count was 13,099. The background count at 10 seconds was thoroughly. After assured that hemostasis was attained the wound was well irrigated. The deep tissues were closed using 3-0 Vicryl suture. The skin was closed using 4-0 Monocryl. Following this the area of the breast was approached. A cookie-cutter was used to circumscribe the area of the areolar. The area for the inferior pedicle was then de-epithelialized. The other incisions which had been marked in the standing subcutaneous tissue was removed from these areas. The breast tissue was mobilized in the bronchoplasty tissue plane. The area of the needle localization was excised. Skin was excised at the site of the anterior area and dissection was carried down to the pectoralis major fascia. The tissue excised was approximately 10 cm x 4 cm from 40 cm. The superior pedicle of 6 cm x 4 cm was mobilized and an inferior pedicle of 6 cm x 2 cm was mobilized. This was a terrible amount of tissue mobilization of 76 cm. The specimen was removed and painted for orientation. Radiographs revealed that the microcalcifications and area of concern had been removed. The wound was well irrigated. Titanium clips were placed to clifford the area. The superior pedicle and inferior pedicle were brought together using 3-0 Vicryl suture. After assured that hemostasis was attained the area was well irrigated. A SHYANN drain was placed. The drain was secured using a nylon suture. The incisions were closed using 3-0 Vicryl suture followed by 4-0 Monocryl in a nylon skin suture. Using a 50 cookie-cutter the area for the maturation of the nipple areolar complex was delineated. The skin was opened over this site. With areolar complex was brought out. This was sewn into place using 3-0 Vicryl suture followed by 4-0 Monocryl and then a nylon skin suture. The patient tolerated procedure in stable condition. All instrument and sponge counts were correct at the end of the case. Embudo node biopsy: Performed Lymphatic mapping: via radiotracer injected in radiology number of lymph nodes removed: One sentinel node, some additional axillary tissue Additional lymph nodes identified: 0 additional palpable nodes, nodes with radioactivity of concern, and no blue dye utilized
--- NOTE | 2021-07-25 13:39 | P.DS ---
Providers Attending physician: Ene Smith Primary care physician: Ro Barrett Plan - Discharge Summary Discharge Rx Participant: Yes New Discharge Prescriptions: No Action Oxybutynin Chloride [Ditropan XL] 10 mg PO DAILY Omeprazole [PriLOSEC] 20 mg PO AC-BRKFST Nadolol [Corgard] 40 mg PO HS Citalopram Hydrobromide [CeleXA] 30 mg PO DAILY Aspirin 81 mg PO DAILY Atorvastatin Calcium [Lipitor] 20 mg PO DAILY lisinopriL [Zestril] 20 mg PO DAILY Cholecalciferol [Vitamin D3 (10 Mcg = 400 Iu)] 10 mcg PO DAILY Ascorbic Acid [Vitamin C] 500 mg PO DAILY Biotin 5 mg PO DAILY Discharge Medication List Citalopram Hydrobromide [CeleXA] 30 mg PO DAILY 04/02/14 [History] Nadolol [Corgard] 40 mg PO HS 04/02/14 [History] Omeprazole [PriLOSEC] 20 mg PO AC-BRKFST 04/02/14 [History] Oxybutynin Chloride [Ditropan XL] 10 mg PO DAILY 04/02/14 [History] Aspirin 81 mg PO DAILY 07/23/14 [History] Atorvastatin Calcium [Lipitor] 20 mg PO DAILY 08/21/17 [History] lisinopriL [Zestril] 20 mg PO DAILY 08/21/17 [History] Ascorbic Acid [Vitamin C] 500 mg PO DAILY 07/24/21 [History] Biotin 5 mg PO DAILY 07/24/21 [History] Cholecalciferol [Vitamin D3 (10 Mcg = 400 Iu)] 10 mcg PO DAILY 07/24/21 [History] Follow up Appointment(s)/Referral(s): Ene Smith MD [STAFF PHYSICIAN] - 08/03/21 12:20 pm Activity/Diet/Wound Care/Special Instructions: Wear bra at all times unless showering May shower after 48 hours Teach drain care, drain and recorded twice a day and as needed Do not drive if taking narcotic pain medication Discharge Disposition: HOME SELF-CARE
[2021-07-25 13:59] VITALS: TEMP 98.6
[2021-07-25 14:55] VITALS: RESP 14
[2021-07-25 15:31] VITALS: BP 117/69; PULSE 62
--- NOTE | 2021-07-25 17:50 | MM ---
EXAMINATION TYPE: MG pre op loc each addl RT, MG surgical specimen RT DATE OF EXAM: 07/25/2021 CLINICAL HISTORY: 76-year-old female are 92.8, abnormal mammogram with 9:00 right breast segmental microcalcifications, biopsy proven DCIS, referred for needle localization and excision. TECHNIQUE: Needle localization with wire placement (bracketing technique) and surgical excision of 9:00 segmental microcalcifications in the right breast. COMPARISON: 05/30/2021, 05/16/2021 FINDINGS: The procedure of needle localization with wire placement and than surgical excision was explained to the patient. Benefits, alternatives, and risks were discussed. An informed consent was then obtained. The shortest pathway for procedure was chosen. Shortest pathway was a lateral approach. The overlying skin was prepped and draped in usual sterile fashion. Lidocaine was used as anesthetic into the skin and subcutaneous tissue up to the level of area of concern. Two 7 cm Kopans needles were placed via lateral approach under mammographic guidance with bracket technique. Subsequent 90 degrees mammogram show the needle to be in satisfactory position relative to the targeted area. At this point, both wires were placed and the needles were withdrawn. Both wires were fixed to patient's skin. Images were marked for surgeon. The patient tolerated the procedure well without any immediate complication. The patient was kept in the radiology department for short stay after the procedure and then taken to surgery for surgical excision. The 2 wires, microclip, and targeted calcifications are identified in specimen mammogram. The patient was kept in hospital for short stay after the procedure and then discharged home in stable condition. IMPRESSION: Successful, uncomplicated needle localization with wire bracketing and surgical excision of segmental distribution of 9:00 right breast DCIS. Full pathology results to follow. Pathology Results: Malignant A. RIGHT SENTINEL LYMPH NODE, EXCISION: One sentinel lymph node negative for metastatic carcinoma. CK7 and RENEA, both with appropriate controls on block A1, negative for carcinoma. B. RIGHT AXILLARY SOFT TISSUE, EXCISION: Benign fibroadipose tissue with no lymph node present. C. RIGHT BREAST SKIN, EXCISION: Benign skin. D. RIGHT BREAST SKIN, EXCISION: Benign skin with underlying benign breast fibroadipose tissue. E. RIGHT BREAST, LUMPECTOMY: High grade ductal carcinoma in situ (DCIS) with microcalcification, focal comedonecrosis and secretory features (see Surgical Pathology Cancer Case Summary and comment). Negative for definitive invasive carcinoma. All margins negative for DCIS. Closest margins to DCIS: Less than 1 mm from closest superior margin and less than 1 mm from inferior/lateral margin junction. Recommendation Surgical consult of the right breast. MTDD
== END 2021-07-25 16:05 | disposition home or self-care (01) ==
LOC: OR 07:21
PROVIDERS: ATTEND Surgery
DX: D05.11 Intraductal carcinoma in situ of right breast (principal); Z79.82 Long term (current) use of aspirin; Z79.899 Other long term (current) drug therapy
CPT/HCPCS: 19301; 14001; 38505; 19281; 38792; 88305; 88342; 88307; 88341; 76098; A9520; J1100; J2405; J2001; J3010; J0744; J0330; J2704; J1170; J1644

== ENCOUNTER 2021-07-26 18:31 | Emergency (ER) | payer MEDICARE ==
[2021-07-26 18:59] VITALS: PULSE 53; TEMP 99.1
--- NOTE | 2021-07-26 20:30 | ED ---
General Adult HPI - General Chief complaint: Recheck/Abnormal Lab/Rx Stated complaint: Post Op Bleeding/Rash/Mouth Sore Time Seen by Provider: 07/26/21 20:15 Source: patient, family, RN notes reviewed, old records reviewed Mode of arrival: ambulatory Limitations: no limitations - History of Present Illness Initial comments: this is a well-appearing 76-year-old female, alert and oriented 4, presents to the emergency room with complaints of right breast drainage. She has a SHYANN drain in that is draining less than 20cc of blood however her dressings and her brassiere had some blood on it and she was concerned for a leak. she states that she didShe also states that she has as sore top lip, and a rash to her chest in linear lines. She denies fevers, she did have nausea earlier today which has resolved. -: days(s) (1) Location: chest (right breast) Quality: aching (sore) Consistency: constant Associated Symptoms: rash - Related Data Home Medications Medication Instructions Recorded Confirmed Citalopram Hydrobromide [CeleXA] 30 mg PO DAILY 04/02/14 07/25/21 Nadolol [Corgard] 40 mg PO HS 04/02/14 07/25/21 Omeprazole [PriLOSEC] 20 mg PO AC-BRKFST 04/02/14 07/25/21 Oxybutynin Chloride [Ditropan XL] 10 mg PO DAILY 04/02/14 07/25/21 Aspirin 81 mg PO DAILY 07/23/14 07/25/21 Atorvastatin Calcium [Lipitor] 20 mg PO DAILY 08/21/17 07/25/21 lisinopriL [Zestril] 20 mg PO DAILY 08/21/17 07/25/21 Ascorbic Acid [Vitamin C] 500 mg PO DAILY 07/24/21 07/25/21 Biotin 5 mg PO DAILY 07/24/21 07/25/21 Cholecalciferol [Vitamin D3 (10 10 mcg PO DAILY 07/24/21 07/25/21 Mcg = 400 Iu)] Allergies Allergy/AdvReac Type Severity Reaction Status Date / Time amoxicillin Allergy Rash/Hives Verified 07/26/21 18:55 cephalexin Allergy Rash/Hives Verified 07/26/21 18:55 clindamycin Allergy Rash/Hives Verified 07/26/21 18:55 tetracycline [Tetracycline] AdvReac Severe Nausea & Verified 07/26/21 18:55 Vomiting Review of Systems ROS Statement: Those systems with pertinent positive or pertinent negative responses have been documented in the HPI. ROS Other: All systems not noted in ROS Statement are negative. Past Medical History Past Medical History: GERD/Reflux, Hyperlipidemia, Hypertension Additional Past Medical History / Comment(s): migraines, aortic valve leakage, breast cancer, bladder leakage History of Any Multi-Drug Resistant Organisms: None Reported Past Surgical History: Bladder Surgery, Breast Surgery, Joint Replacement, Tubal Ligation Additional Past Surgical History / Comment(s): ANDRZEJ KNEE REPLACEMENT, BLADDER SLING, breast biopsy and reduction Past Anesthesia/Blood Transfusion Reactions: No Reported Reaction Past Psychological History: No Psychological Hx Reported Smoking Status: Never smoker Past Alcohol Use History: Occasional Past Drug Use History: None Reported - Past Family History Sister(s) Family Medical History: Cancer, Pulmonary Embolus Additional Family Medical History / Comment(s): lung cancer General Exam Limitations: no limitations General appearance: alert, in no apparent distress Head exam: Present: atraumatic, normocephalic, normal inspection Eye exam: Present: normal appearance, PERRL, EOMI. Absent: scleral icterus, conjunctival injection, periorbital swelling ENT exam: Present: normal exam, normal oropharynx, mucous membranes moist, other (small lesion to the top inner lip) Neck exam: Present: normal inspection, full ROM. Absent: tenderness, meningismus, lymphadenopathy Respiratory exam: Present: normal lung sounds bilaterally. Absent: respiratory distress, wheezes, rales, rhonchi, stridor Cardiovascular Exam: Present: bradycardia GI/Abdominal exam: Present: soft, normal bowel sounds. Absent: distended, tenderness, guarding, rebound, rigid Neurological exam: Present: alert, oriented X3, CN II-XII intact Psychiatric exam: Present: normal affect, normal mood Skin exam: Present: warm, dry, normal color, other (ecchymosis is noted to the right breast with lisset intact. There is a SHYANN drain is draining blood). Absent: rash Course Vital Signs 07/26/21 07/26/21 18:55 20:43 Temperature 99.1 F Pulse Rate 53 L 53 L Respiratory 20 18 Rate Blood Pressure 137/59 180/85 O2 Sat by Pulse 97 96 Oximetry Medical Decision Making - Medical Decision Making patient surgical site is well approximated with no active bleeding, drainage or erythema. Her SHYANN drain is intact with 20 mL of blood. Likely cause of the patient's bleeding was when she accidently pulled the drain. she was directed to keep her appointment postop and return to the emergency room with any increased bleeding or pain. Patient is comfortable being discharged home with her daughter. case discussed with Dr. Skinner Disposition Clinical Impression: Encounter for wound re-check Disposition: HOME SELF-CARE Condition: Good Additional Instructions: keep your appointment with your surgeon for reevaluation post surgery. Continue medications as previously prescribed. Return to the emergency room with any new or worsening symptoms Is patient prescribed a controlled substance at d/c from ED?: No Referrals: Ro Barrett MD [Primary Care Provider] - 1-2 days Time of Disposition: 20:45
[2021-07-26 20:48] VITALS: BP 180/85; RESP 18
== END 2021-07-26 21:11 | disposition home or self-care (01) ==
LOC: EC 18:31
DX: L76.22 Postprocedural hemorrhage of skin and subcutaneous tissue following other procedure (principal); R00.1 Bradycardia, unspecified; I10 Essential (primary) hypertension; K21.9 Gastro-esophageal reflux disease without esophagitis; G43.909 Migraine, unspecified, not intractable, without status migrainosus; E78.5 Hyperlipidemia, unspecified; Z88.0 Allergy status to penicillin; Z88.1 Allergy status to other antibiotic agents; Z79.899 Other long term (current) drug therapy; Z98.86 Personal history of breast implant removal
CPT/HCPCS: 99282

== ENCOUNTER → 2021-08-03 | Outpatient (CLI) | payer MEDICARE ==
[2021-08-03 12:38] VITALS: BP 144/78; PULSE 67; RESP 12; TEMP 98
--- NOTE | 2021-08-03 12:55 | P.PN ---
Progress Note - Text Progress Note Date: 08/03/21 Brianne is a 76 year old white female status post right breast lumpectomy and SNB on 07-25-21 , sentinel lymph node was negative, the size of the DCIS was approximately 23 mm, all margins were negative although the superior and inferior lateral margin were close. The patient has done well postoperatively. Her SHYANN drain is putting out less than 20 mL for the last several days. It is serous in nature. Physical examination: Lungs: Clear Heart: S1-S2 Incision: Clean and dry, mild ecchymosis medial aspect of left breast Impression: 1. 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 Superior and inferior lateral margin are close we'll follow very closely and we presented tumor Board, I have discussed with the patient and her daughter the option of reexcision however at this time would prefer to have radiation therapy and hormonal therapy with close surveillance 2. Follow-up radiation oncology 3. Follow-up medical oncology CC: Dr. Barrett
== END | disposition home or self-care (01) ==
LOC: WWCWWP 12:19
PROVIDERS: ATTEND Surgery
DX: Z53.9 Procedure and treatment not carried out, unspecified reason (principal)

== ENCOUNTER → 2021-08-10 | Outpatient (CLI) | payer MEDICARE ==
[2021-08-10 10:30] VITALS: BP 152/72; PULSE 50; RESP 12; TEMP 97.8
--- NOTE | 2021-08-10 10:54 | P.PN ---
Progress Note - Text Progress Note Date: 08/10/21 Brianne is a 76 year old white female status post right breast lumpectomy and SNB on 07-25-21 , sentinel lymph node was negative, the size of the DCIS was approximately 23 mm, all margins were negative although the superior and inferior lateral margin were close. The patient has done well postoperatively. Her SHYANN drain was removed last week and the patient is tolerated this without difficulty. Her case was presented at tumor Board and there was concurrence that we would hold off on any further excision. There was recommendation that a repeat mammogram of this site be performed to assure that all the calcifications were gone from the breast. Physical examination: Lungs: Clear Heart: S1-S2 Incision: Clean and dry, mild ecchymosis medial aspect of left breast improved Impression: 1. 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 Superior and inferior lateral margin are close will follow closely case presented at tumor Board, I have discussed with the patient and her daughter the option of reexcision however at this time would prefer to have radiation therapy and hormonal therapy with close surveillance 2. Follow-up radiation oncology 3. Follow-up medical oncology 4. suture removal 5. follow up here in 4 months CC: Dr. Barrett
== END | disposition home or self-care (01) ==
LOC: WWCWWP 10:12
PROVIDERS: ATTEND Surgery
DX: Z53.9 Procedure and treatment not carried out, unspecified reason (principal)

== ENCOUNTER → 2021-11-17 | Outpatient (CLI) | payer MEDICARE ==
[2021-11-17 11:51] VITALS: BP 156/79; PULSE 50; RESP 17; TEMP 98.1
--- NOTE | 2021-11-17 12:00 | P.PN ---
Subjective Progress Note Date: 11/17/21 Principal diagnosis: DCIS right breast Brianne is a 76 year old white female seen in consultation for Dr. 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 She had a routine mammogram bilateral mammogram which led to a right breast diagnostic mammogram performed on 8320 diagnostic mammogram revealed heterogeneous segmental calcifications. Approximately 3.5 cm at the 8 o'clock position. She underwent a stereotactic core biopsy which revealed DCIS intermediate grade. This was ER positive and [place] positive. She had a right breast lumpectomy and SNB on 07-25-21. Her margins were negative, 23mm DCIS and SNB negative. The superior and inferior margins were close but after discussion with artemio an her daughter they opted for radiation and hormaonal therapy and close survellence. She finished radiation therapy on September. She was noted to have some fullness in the lateral aspect of the right breast. She first noted this about three weeks ago, it has gotten smaller. It is not painful. She has an ultrasound scheduled for November 24. Note from Dr. Perez on 11-04-21 reviewed Caffeine: 3 cups coffee/day nicotine: none; second hand smoke in the past [id number] chocolate: rare Family history: sister: lung cancer, smoker Hormonal history: Menarche: 13 , breast fed: no; age at : 17 menopause: 51 BCP: 13 years hormones: none; used fro 1 year at menopause Surgical History: 1. bilateral knee replacement 2. tubaligation 3. Bladder sling 4. Prior stereo biopsy right breast leading to an open biopsy Medical History: 1. leaking cardiac valve Social History: nicotine: Negative Alcohol: 2-3 drinks wine or vodka/ 6 days /week drugs: none - Constitutional Constitutional: Denies chills, Denies fever - EENT Eyes: denies blurred vision, denies pain Ears: bilateral: decreased hearing, deny: tinnitus Ears, nose, mouth and throat: Reports headache, Denies sore throat - Breasts Breasts: bilateral: as per HPI - Cardiovascular Comment: leaking aortic valve/ uses aspirin daily, high cholesterol Cardiovascular: Reports high blood pressure, Reports shortness of breath, Denies chest pain - Respiratory Comment: chronic cough Respiratory: Reports cough - Gastrointestinal Gastrointestinal: Reports constipation, Denies abdominal pain, Denies diarrhea, Denies nausea, Denies vomiting - Genitourinary (Female) Comment: bladder sling Genitourinary: Denies dysuria, Denies hematuria - Menstruation Menstruation: Reports postmenopausal - Musculoskeletal Musculoskeletal: Reports as per HPI - Integumentary Comment: rash on right breast - Neurological Comment: history of shingles Neurological: Denies numbness, Denies weakness - Psychiatric Psychiatric: Denies anxiety, Denies depression - Endocrine Endocrine: Denies fatigue, Denies weight change - Hematologic/Lymphatic Hematologic/Lymphatic: Reports as per HPI - Allergic/Immunologic Allergic/Immunologic: Reports as per HPI Objective - Vital Signs Vital signs: Intake & Output 11/16/21 11/17/21 11/17/21 18:59 06:59 18:59 Weight 77.564 kg - Constitutional General appearance: Present: cooperative - EENT Eyes: Present: EOMI ENT: Present: hearing grossly normal - Neck Neck: Present: normal ROM - Respiratory Respiratory: bilateral: CTA - Cardiovascular Heart sounds: normal: S1, S2 - Gastrointestinal General gastrointestinal: Present: soft - Integumentary Integumentary: Present: normal turgor - Musculoskeletal Musculoskeletal: Present: gait normal - Psychiatric Psychiatric: Present: A&O x's 3, appropriate affect, intact judgment & insight - Additional findings Additional findings: Breast Exam: BRA: 40D inspection: Symmetry of the breast related to prior right breast lumpectomy and radiation therapy, right breast grade 2 ptosis Left breast grade 3 ptosis Palpation: Right breast: Postradiation and surgical changes, fullness in the lateral aspect of the breast is most likely related to fat necrosis, no discrete dominant masses or nodules of concern Right axilla: No adenopathy of concern Left breast: Multiple positional exam fibrocystic changes no dominant masses or nodules of concern Left axilla: No adenopathy of concern Assessment and Plan Assessment: Impression: Patient status post right breast lumpectomy and radiation therapy for ductal carcinoma in situ, fullness in the lateral aspect most likely related to radiation and surgical changes Asymmetry of the breast, left breast macromastia Fibrocystic breast changes Plan: Ultrasound right breast rule out seroma at area of palpable change Bilateral mammogram in December 2021 with physician exam at that time Left breast reduction mammoplasty secondary to asymmetry CC: Dr. Barrett, Dr. Perez
== END | disposition home or self-care (01) ==
LOC: WWCWWP 11:30
PROVIDERS: ATTEND Surgery
DX: Z53.9 Procedure and treatment not carried out, unspecified reason (principal)

== ENCOUNTER → 2021-11-24 | Outpatient (CLI) | payer MEDICARE ==
--- NOTE | 2021-11-24 10:45 | USB ---
Reason for exam: clinical finding. History: Patient is postmenopausal and has history of breast cancer at age 76. Malignant MG pre op needle loc RT of the right breast, July 25, 2021. Lumpectomy of the right breast, July 25, 2021. Malignant MG stereo VAD BX RT of the right breast, June 05, 2021. Benign MG pre op needle loc RT of the right breast, October 18, 2014. Benign MG stereo VAD BX RT of the right breast, October 04, 2014. Took hormonal contraceptives for 13 years. Took estrogen for 3 years. Took progesterone for 3 years. Indicated problem(s): lump or thickening in the right breast. Physical Findings: Nurse did not find any significant physical abnormalities on exam. US Breast Limited RT Right limited breast ultrasound including focal area of concern, retroareolar and axilla demonstrates a 1.9 x 1.6 x 1.9cm oval, mixed, hypoechoic lesion at 8 o'clock and a 5.0 x 2.3cm lobular, solid lesion at 9-11 o'clock. These results were verbally communicated with the patient and result sheet given to the patient on 11/24/21. ASSESSMENT: Suspicious, BI-RAD 4 RECOMMENDATION: Ultrasound core biopsy of the right breast. (mass, consider cyst aspiration) Called Dr. Barrett's office with mammographic findings and has scheduled an appointment for the patient for 11/24/21 at 9:[address] Smith. Biopsy scheduled for 12/13/21 at 10:30. PRELIMINARY REPORT CALLED AND FAXED TO DR. SMITH ON 11/24/21.
== END | disposition home or self-care (01) ==
LOC: RADUSWWP 11-13 08:58
PROVIDERS: ATTEND Family Medicine
DX: Z85.3 Personal history of malignant neoplasm of breast (principal)

== ENCOUNTER → 2021-11-28 | Outpatient (CLI) | payer MEDICARE ==
--- NOTE | 2021-11-28 13:54 | MM ---
Reason for exam: follow-up at short interval from prior study. Last mammogram was performed 6 months ago. History: Patient is postmenopausal and has history of breast cancer at age 76. Malignant MG pre op needle loc RT of the right breast, July 25, 2021. Lumpectomy of the right breast, July 25, 2021. Malignant MG stereo VAD BX RT of the right breast, June 05, 2021. Benign MG pre op needle loc RT of the right breast, October 18, 2014. Benign MG stereo VAD BX RT of the right breast, October 04, 2014. Took hormonal contraceptives for 13 years. Took estrogen for 3 years. Took progesterone for 3 years. Taking antineoplastic for 1 month beginning at age 76. Physical Findings: Breast exam preformed 11/24/21. MG 3D Diag Mammo W/Cad LT CC and MLO view(s) were taken of the left breast. Prior study comparison: May 16, 2021, bilateral MG 3d screening mammo w/cad. The breast tissue is heterogeneously dense. This may lower the sensitivity of mammography. There are benign appearing round, linear, dystrophic calcifications in the left breast. There is no new dominant lesion. These results were verbally communicated with the patient and result sheet given to the patient on 11/28/21 ASSESSMENT: Benign, BI-RAD 2 RECOMMENDATION: Return to routine screening mammogram schedule for both breasts. Back on schedule for April 2022.
== END | disposition home or self-care (01) ==
LOC: RADMAMWWP 12:51
PROVIDERS: ATTEND Surgery
DX: R92.8 Other abnormal and inconclusive findings on diagnostic imaging of breast (principal)
CPT/HCPCS: 77065; G0279; 77061

== ENCOUNTER → 2021-12-13 | Day surgery (SDC) | payer MEDICARE ==
[2021-12-13 09:53] VITALS: RESP 16
[2021-12-13 11:13] VITALS: BP 145/72; PULSE 54; TEMP 98.3
--- NOTE | 2021-12-13 11:41 | USB ---
EXAMINATION TYPE: US biopsy breast VAD RT, US biopsy breast add'l VAD RT, MG diagnostic mammo RT wo CAD DATE OF EXAM: 12/13/2021 CLINICAL HISTORY: N63 BREAST LUMP/MASS. TECHNIQUE: Ultrasound guided core biopsy of right 9:00 and right 8:00 lesions breast. COMPARISON: NONE FINDINGS: The procedure of ultrasound guided core biopsy was explained to the patient. Benefits, alternatives, and risks were discussed. An informed consent was then obtained. The patient was placed in supine positioning for imaging and for the procedure. The overlying skin was prepped and draped in usual sterile fashion. Lidocaine buffered with bicarbonate was used as anesthetic into the skin and subcutaneous tissue up to area of concern in the right 9:00 and right 8:00 breast. Under ultrasound guidance, a 12-gauge vacuum assisted biopsy gun device was used to obtain 5 core samples at the 9:00 area and 3 core samples of the clock thick- walled cystic lesion.. Following this, biopsy clips were deployed at both sites. The patient tolerated the procedure well without any immediate complication. The patient was kept in the radiology department for short stay after the procedure and then discharged home in stable condition. IMPRESSION: Successful, uncomplicated ultrasound guided core biopsy of the right 9:00 lesion as well as the 8:00 lesion. Pathology results are pending. Pathology Results: Benign A. RIGHT BREAST, 9:00 SITE A, ULTRASOUND GUIDED CORE BIOPSY: Scar/fat necrosis with histiocytes, chronic inflammation and foreign body giant cell reaction. Negative for malignancy. B. RIGHT BREAST, 8:00 SITE B, ULTRASOUND GUIDED CORE BIOPSY: Scar/fat necrosis with histiocytes, chronic inflammation and foreign body giant cell reaction. Negative for malignancy. Recommendation Follow up mammogram of the right breast in 6 months. MTDD
== END ==
LOC: RADUSWWP 09:20
PROVIDERS: ATTEND Surgery
DX: N64.1 Fat necrosis of breast (principal); N64.89 Other specified disorders of breast; R92.8 Other abnormal and inconclusive findings on diagnostic imaging of breast; N63.10 Unspecified lump in the right breast, unspecified quadrant; Z88.1 Allergy status to other antibiotic agents; Z88.0 Allergy status to penicillin; Z91.048 Other nonmedicinal substance allergy status; Z91.09 Other allergy status, other than to drugs and biological substances
CPT/HCPCS: 88305; 77065; 19083; 19084; A4648; J2001

== ENCOUNTER → 2021-12-22 | Outpatient (CLI) | payer MEDICARE ==
[2021-12-22 09:09] VITALS: BP 136/71; PULSE 55; RESP 17; TEMP 97.9
--- NOTE | 2021-12-22 10:08 | P.PN ---
Subjective Progress Note Date: 12/22/21 Principal diagnosis: Right breast DCIS DCIS right breast Brianne is a 76 year old white female seen in consultation for Dr. 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 She had a routine mammogram bilateral mammogram which led to a right breast diagnostic mammogram performed on 8320 diagnostic mammogram revealed heterogeneous segmental calcifications. Approximately 3.5 cm at the 8 o'clock position. She underwent a stereotactic core biopsy which revealed DCIS intermediate grade. This was ER positive and [place] positive. She had a right breast lumpectomy and SNB on 07-25-21. Her margins were negative, 23mm DCIS and SNB negative. The superior and inferior margins were close but after discussion with artemio an her daughter they opted for radiation and hormaonal therapy and close survellence. She finished radiation therapy on September. She was noted to have some fullness in the lateral aspect of the right breast. She first noted this about three weeks ago, it has gotten smaller. It is not painful. She has an ultrasound scheduled for November 24. She had a left breast mammogram on 11-28-21 which was benign BIRAD 2. She had a right breast ultrasound on 11-24-21 this was suspecious BIRAD 4 and core biopsy of two sites was recommended. This was done on 12-13-21 and both sites were benign post op scar/fat necrosis. Patient has not had a diagnostic mammogram of the right breast since her treatment. At this time she is not complaining of any new lumps masses or nodules of concern in either breast. She wishes to have a symmetry procedure performed on the contralateral side. She is asymmetric and it causes difficulty for to find clothes to fit as well as shoulder notching worse on the left side and back pain. The right breast is a 40C and the left is a 40DD. Caffeine: 3 cups coffee/day nicotine: none; second hand smoke in the past [id number] chocolate: rare Family history: sister: lung cancer, smoker Hormonal history: Menarche: 13 , breast fed: no; age at : 17 menopause: 51 BCP: 13 years hormones: none; used fro 1 year at menopause Surgical History: 1. bilateral knee replacement 2. tubaligation 3. Bladder sling 4. Prior stereo biopsy right breast leading to an open biopsy Medical History: 1. leaking cardiac valve Social History: nicotine: Negative Alcohol: 2-3 drinks wine or vodka/ 6 days /week drugs: none - Constitutional Constitutional: Denies chills, Denies fever - EENT Eyes: denies blurred vision, denies pain Ears: bilateral: decreased hearing, deny: tinnitus Ears, nose, mouth and throat: Reports headache, Denies sore throat - Breasts Breasts: bilateral: as per HPI - Cardiovascular Comment: leaking aortic valve/ uses aspirin daily, high cholesterol Cardiovascular: Reports high blood pressure, Reports shortness of breath, Denies chest pain - Respiratory Comment: chronic cough Respiratory: Reports cough - Gastrointestinal Gastrointestinal: Reports constipation, Denies abdominal pain, Denies diarrhea, Denies nausea, Denies vomiting - Genitourinary (Female) Comment: bladder sling Genitourinary: Denies dysuria, Denies hematuria - Menstruation Menstruation: Reports postmenopausal - Musculoskeletal Musculoskeletal: Reports as per HPI - Integumentary Comment: rash on right breast - Neurological Comment: history of shingles Neurological: Denies numbness, Denies weakness - Psychiatric Psychiatric: Denies anxiety, Denies depression - Endocrine Endocrine: Denies fatigue, Denies weight change - Hematologic/Lymphatic Hematologic/Lymphatic: Reports as per HPI - Allergic/Immunologic Allergic/Immunologic: Reports as per HPI Objective - Vital Signs Vital signs: Vital Signs Temp 97.9 F 12/22/21 09:06 Pulse 55 L 12/22/21 09:06 Resp 17 12/22/21 09:06 BP 136/71 12/22/21 09:06 Pulse Ox 97 12/22/21 09:06 Intake & Output 12/21/21 12/22/21 12/22/21 18:59 06:59 18:59 Weight 78.018 kg - Constitutional General appearance: Present: cooperative - EENT Eyes: Present: EOMI ENT: Present: hearing grossly normal - Neck Neck: Present: normal ROM - Respiratory Respiratory: bilateral: CTA - Cardiovascular Rhythm: regular Heart sounds: normal: S1, S2 - Gastrointestinal General gastrointestinal: Present: soft - Integumentary Integumentary Comment(s): Biopsy site right breast clean and dry no evidence of infection or hematoma - Musculoskeletal Musculoskeletal: Present: gait normal - Psychiatric Psychiatric: Present: A&O x's 3, appropriate affect, intact judgment & insight - Additional findings Additional findings: Breast Exam: BRA: right 40C, left 40DD inspection: right breast well healed scars, grade 2 ptosis, left grade 3 ptosis palpation: right multiple positional exam well-healed scars no evidence of infection, fullness in the lower outer quadrant of the breast which was recently biopsied noted to be scar and fat necrosis Right axilla: No adenopathy of concern Left breast: Multiple positional exam fibrocystic changes no dominant masses or nodules of concern Left axilla: No adenopathy of concern Assessment and Plan Assessment: Imprssion: Patient status post right breast lumpectomy and radiation therapy for ductal carcinoma in situ Patient is presently on letrazole Recent biopsy area of concern in the right breast benign postoperative post radiation changes No evidence of any recurrent cancer Plan: Right breast mammogram in 4 months with physician exam at that time Patient to continue to follow with medical and radiation oncology Patient to follow up sooner any questions or concerns Left breast mammoplasty clearance with Dr. Barrett; CBC, BNP, INR, EKG CC: Dr. Barrett
[2021-12-22 14:55] LABS: HCT 38.7 % (37.2-46.3); MCH 30.1 pg (27.0-32.0); Mean Platelet Volume 10.8 fL (9.5-12.2); NRBC Per 100 WBC 0 /100 WBCS (0.0-0.0); Platelet Count 265 X 10*3/uL (140-440); RBC 3.99 X 10*6/uL (4.10-5.20); RDW 13.2 % (11.5-14.5); WBC 7.27 X 10*3/uL (4.50-10.00)
[2021-12-22 15:50] LABS: INR 0.94 (0.90-1.11); Prothrombin Time 10.4 sec (9.9-11.9)
== END | disposition home or self-care (01) ==
LOC: WWCWWP 08:54
PROVIDERS: ATTEND Surgery
DX: D05.11 Intraductal carcinoma in situ of right breast (principal)
CPT/HCPCS: 36415; 83880; 85027; 85610; 93005

== ENCOUNTER → 2021-12-26 | Day surgery (SDC) | payer MEDICARE ==
[2021-12-22 15:36] VITALS: BMI 30.4
[~2021-12-26] MED LIST changes: +CIPROFLOXACIN/DEXTROSE PMX 400 MG in DEXTROSE/WATER 1 200ML.BAG IVPB STA; +GLYCOPYRROLATE 0.2 MG/ML 2 ML VIAL ONE; +HYDROmorphone (PF) 1 MG/ML ONE; +LACTATED RINGERS 1,000 ML IV ONE; +LIDOCAINE 1% (10MG/ML) FOR IV START INTRADERMA ONE; +LIDOCAINE 1% INJ 10MG/ML (20 ML MDV) ONE; +MIDAZOLAM 2 MG/2 ML VIAL ONE; +NEOSTIGMINE 1 MG/ML 10 ML VIAL ONE; +ONDANSETRON 4 MG/2 ML VIAL ONE; +PROPOFOL 10 MG/ML 20 ML VIAL IV ONE; +ROCURONIUM 10 MG/ML (5 ML VIAL) IV ONE; +SUCCINYLCHOLINE CHLORIDE 100 MG/5 ML SYR IV ONE; +ePHEDrine 50 MG/ML 1 ML VIAL ONE; +fentaNYL (PF) 50 MCG/ML 2 ML AMP ONE
[2021-12-26 07:43] VITALS: RESP 16
[2021-12-26 08:52] LABS: Potassium 4.2 mmol/L (3.5-5.1)
--- NOTE | 2021-12-26 11:46 | P.OP ---
Date of Procedure: 12/26/21 Preoperative Diagnosis: Asymmetry of the breast secondary to right breast surgery for cancer/left breast macromastia Postoperative Diagnosis: Same Procedure(s) Performed: Left breast reduction mammoplasty Anesthesia: DEBRAA Surgeon: Ene Smith Estimated Blood Loss (ml): 20 IV fluids (ml): 900 Urine output (ml): 500 Pathology: other (Breast tissue and skin of the breast) Condition: stable Disposition: same day Indications for Procedure: Patient status post right breast lumpectomy and radiation therapy for carcinoma she had macromastia of the left breast and marked asymmetry related to the treatment for breast cancer Operative Findings: Fibrofatty breast tissue Description of Procedure: The left breast was marked in the preoperative area for reduction mammo plasty. The patient was brought to the operating room and following induction of anesthesia the left and right breast were prepped and draped in a sterile fashion. The nipple areolar complex on the right was measured and noted to be a 45K Cookie cutter size. The areolar was marked on the left side with the 45 cookie cutter. All skin markings were again evaluated and confirmed. The inferior pedicle skin was de-epithelialized. The Sultana pattern markings were used as a guide for our incisions and the lateral and medial triangles of breast tissue were excised. Additionally breast tissue was excised superior to the inferior pole pedicle. The medial skin flap was developed in the plane between the subcutaneous tissue and the breast tissue. The lateral skin flap was developed in the plane between the subcutaneous tissue and the breast tissue. The superior skin flap was developed slightly deeper than the medial and lateral skin flaps. Hemostasis was attained at all times using the electrocautery device. The wound well irrigated. After we were assured that hemostasis was attained Surgicel in powder form was placed. A #10 SHYANN drain was placed. The Sultana pattern skin flaps were brought together at the inferior midline. Interrupted Vicryl sutures were placed. This was followed by a subcutaneous 3-0 Vicryl suture. This was followed by a running 4-0 Monocryl subcuticular suture. 4-0 nylon skin sutures were placed. The area of the nipple areolar complex was matured. A 45 cookie cutter was used to measure where the opening in the skin would be preformed. T his was made and the nipple areolar complex was brought up into the wound. This was secured in place using interrupted 3-0 Vicryl suture. This was followed by 3-0 Vicryl subcutaneous suture, 4-0 Monocryl subcuticular suture, and 4-0 nylon skin suture. All instrument and sponge counts were correct at the end of the case. The patient tolerated the procedure in stable condition.
--- NOTE | 2021-12-26 11:48 | P.DS ---
Providers Attending physician: Ene Smith Primary care physician: Ro Barrett Plan - Discharge Summary Discharge Rx Participant: No New Discharge Prescriptions: No Action Oxybutynin Chloride [Ditropan XL] 15 mg PO DAILY Omeprazole [PriLOSEC] 20 mg PO AC-BRKFST Nadolol [Corgard] 40 mg PO HS Aspirin 81 mg PO DAILY Atorvastatin Calcium [Lipitor] 20 mg PO DAILY Cholecalciferol [Vitamin D3 (10 Mcg = 400 Iu)] 10 mcg PO DAILY ALPRAZolam [Xanax] 0.25 mg PO DAILY PRN PRN Reason: Anxiety SUMAtriptan SUCCINATE [Imitrex] 25 mg PO DAILY PRN PRN Reason: Headache Biotin 5 mg PO DAILY B12/Levomefolate Calcium/B-6 [Foltx Tablet] 600 mg PO WEEKLY Calcium Carbonate [Calcium] 600 mg PO BID Ascorbic Acid/Collagen Hydr [Collagen Plus Vit C Capsule] 1 cap PO DAILY Citalopram Hydrobromide 40 mg PO DAILY lisinopriL 30 mg PO DAILY Letrozole 2.5 mg PO DAILY Discharge Medication List Nadolol [Corgard] 40 mg PO HS 04/02/14 [History] Omeprazole [PriLOSEC] 20 mg PO AC-BRKFST 04/02/14 [History] Oxybutynin Chloride [Ditropan XL] 15 mg PO DAILY 04/02/14 [History] Aspirin 81 mg PO DAILY 07/23/14 [History] Atorvastatin Calcium [Lipitor] 20 mg PO DAILY 08/21/17 [History] Biotin 5 mg PO DAILY 07/24/21 [History] Cholecalciferol [Vitamin D3 (10 Mcg = 400 Iu)] 10 mcg PO DAILY 07/24/21 [History] Ascorbic Acid/Collagen Hydr [Collagen Plus Vit C Capsule] 1 cap PO DAILY 08/10/21 [History] B12/Levomefolate Calcium/B-6 [Foltx Tablet] 600 mg PO WEEKLY 08/10/21 [History] Calcium Carbonate [Calcium] 600 mg PO BID 08/10/21 [History] ALPRAZolam [Xanax] 0.25 mg PO DAILY PRN 11/17/21 [History] Citalopram Hydrobromide 40 mg PO DAILY 11/17/21 [History] Letrozole 2.5 mg PO DAILY 11/17/21 [History] SUMAtriptan SUCCINATE [Imitrex] 25 mg PO DAILY PRN 11/17/21 [History] lisinopriL 30 mg PO DAILY 11/17/21 [History] Follow up Appointment(s)/Referral(s): Ene Smith MD [STAFF PHYSICIAN] - 3 Days Activity/Diet/Wound Care/Special Instructions: do not drive until seen by Dr. Franz wear bra at all times may shower after 48 hours teach drain care, drain and record output daily and as needed Discharge Disposition: HOME SELF-CARE
[2021-12-26 12:14] VITALS: TEMP 97.3
[2021-12-26 13:38] VITALS: BP 125/76; PULSE 74
== END | disposition home or self-care (01) ==
LOC: OR 07:13
PROVIDERS: ATTEND Surgery
DX: N62 Hypertrophy of breast (principal); I10 Essential (primary) hypertension; E78.5 Hyperlipidemia, unspecified; F32.A Depression, unspecified; K21.9 Gastro-esophageal reflux disease without esophagitis; Z79.82 Long term (current) use of aspirin; Z85.3 Personal history of malignant neoplasm of breast
CPT/HCPCS: 19318; 80051; J2250; J1100; J2710; J2405; J2001; J3010; J0744; J1170; J0330; J2704; J1644

== ENCOUNTER 2021-12-27 22:14 | Emergency (ER) | payer MEDICARE ==
[2021-12-27 22:19] VITALS: BP 138/64; PULSE 59; RESP 18; TEMP 98.3
--- NOTE | 2021-12-27 22:58 | ED ---
General Adult HPI - General Chief complaint: Skin/Abscess/Foreign Body Stated complaint: post op problems Time Seen by Provider: 12/27/21 22:24 Source: patient Mode of arrival: ambulatory Limitations: no limitations - History of Present Illness Initial comments: This patient is a 76-year-old woman who presents to have evaluation after she noticed drainage at the left breast. She had had a mammoplasty with Dr. Osei Reeves. has no other complaints. No pain. No fever or chills. She states that it seemed like the SHYANN drainage tube had stopped draining. -: hour(s) Severity scale (1-10): 0 Improves with: none Worsens with: none Treatments Prior to Arrival: none - Related Data Home Medications Medication Instructions Recorded Confirmed Nadolol [Corgard] 40 mg PO HS 04/02/14 12/28/21 Omeprazole [PriLOSEC] 20 mg PO AC-BRKFST 04/02/14 12/28/21 Oxybutynin Chloride [Ditropan XL] 15 mg PO DAILY 04/02/14 12/28/21 Aspirin 81 mg PO DAILY 07/23/14 12/28/21 Atorvastatin Calcium [Lipitor] 20 mg PO DAILY 08/21/17 12/28/21 Biotin 5 mg PO DAILY 07/24/21 12/28/21 Cholecalciferol [Vitamin D3 (10 10 mcg PO DAILY 07/24/21 12/28/21 Mcg = 400 Iu)] Ascorbic Acid/Collagen Hydr 1 cap PO DAILY 08/10/21 12/28/21 [Collagen Plus Vit C Capsule] B12/Levomefolate Calcium/B-6 600 mg PO WEEKLY 08/10/21 12/28/21 [Foltx Tablet] Calcium Carbonate [Calcium] 600 mg PO BID 08/10/21 12/28/21 ALPRAZolam [Xanax] 0.25 mg PO DAILY PRN 11/17/21 12/28/21 Citalopram Hydrobromide 40 mg PO DAILY 11/17/21 12/28/21 Letrozole 2.5 mg PO DAILY 11/17/21 12/28/21 SUMAtriptan SUCCINATE [Imitrex] 25 mg PO DAILY PRN 11/17/21 12/28/21 lisinopriL 30 mg PO DAILY 11/17/21 12/28/21 Allergies Allergy/AdvReac Type Severity Reaction Status Date / Time adhesive tape Allergy Intermediate Itching Verified 12/28/21 13:26 amoxicillin Allergy Rash/Hives Verified 12/28/21 13:26 cephalexin Allergy Rash/Hives Verified 12/28/21 13:26 clindamycin Allergy Rash/Hives Verified 12/28/21 13:26 iodine Allergy Itching Verified 12/28/21 13:26 povidone-iodine Allergy Itching Verified 12/28/21 13:26 [From Betadine] tetracycline [Tetracycline] AdvReac Severe Nausea & Verified 12/28/21 13:26 Vomiting Review of Systems ROS Statement: Those systems with pertinent positive or pertinent negative responses have been documented in the HPI. ROS Other: All systems not noted in ROS Statement are negative. Constitutional: Denies: fever, chills Respiratory: Denies: cough, dyspnea Cardiovascular: Denies: chest pain, palpitations Skin: Reports: as per HPI. Denies: rash Hematological/Lymphatic: Denies: easy bleeding Past Medical History Past Medical History: Cancer, GERD/Reflux, Hyperlipidemia, Hypertension Additional Past Medical History / Comment(s): migraines, aortic valve leakage, breast cancer, bladder leakage History of Any Multi-Drug Resistant Organisms: None Reported Past Surgical History: Bladder Surgery, Breast Surgery, Joint Replacement, Tubal Ligation Additional Past Surgical History / Comment(s): ANDRZEJ KNEE REPLACEMENT, BLADDER SLING, breast biopsy and reduction Past Anesthesia/Blood Transfusion Reactions: No Reported Reaction Past Psychological History: No Psychological Hx Reported Smoking Status: Never smoker Past Alcohol Use History: Daily Past Drug Use History: None Reported - Past Family History Sister(s) Family Medical History: Cancer, Pulmonary Embolus Additional Family Medical History / Comment(s): lung cancer General Exam Limitations: no limitations General appearance: alert, in no apparent distress Head exam: Present: atraumatic, normocephalic Eye exam: Present: normal appearance Respiratory exam: Present: normal lung sounds bilaterally, other (Exam of the patient's left breast shows that the incision line is intact and looks good. There is a little bit of serosanguineous drainage around the insertion site of the SHYANN drain.). Absent: respiratory distress, wheezes, rales, rhonchi, stridor Cardiovascular Exam: Present: regular rate, normal rhythm, normal heart sounds. Absent: systolic murmur, diastolic murmur, rubs, gallop Neurological exam: Present: alert Skin exam: Present: warm, dry, intact, normal color. Absent: rash Course Vital Signs 12/27/21 22:16 Temperature 98.3 F Pulse Rate 59 L Respiratory 18 Rate Blood Pressure 138/64 O2 Sat by Pulse 98 Oximetry Medical Decision Making - Medical Decision Making The patient is having a little bit of serosanguineous drainage around the SHYANN drain insertion site. I did attempt to strip the clots from the SHYANN drain and there does seem to be a little bit of drainage now draining through the drain itself. The patient had a clean dressing applied at the site and discharged to follow-up with Dr. Osei Reeves. Return parameters discussed. Disposition Clinical Impression: Encounter for postoperative wound check Disposition: HOME SELF-CARE Condition: Good Instructions (If sedation given, give patient instructions): *Surgery [facility] - ([facility]) Breast Biopsy Instructions Is patient prescribed a controlled substance at d/c from ED?: No Referrals: Ro Barrett MD [Primary Care Provider] - 1-2 days Ene Smith MD [STAFF PHYSICIAN] - 1-2 days
== END 2021-12-27 23:12 | disposition home or self-care (01) ==
LOC: EC 22:14
DX: Z48.89 Encounter for other specified surgical aftercare (principal); Z79.83 Long term (current) use of bisphosphonates; K21.9 Gastro-esophageal reflux disease without esophagitis; I10 Essential (primary) hypertension; Z88.1 Allergy status to other antibiotic agents; Z91.041 Radiographic dye allergy status; Z88.0 Allergy status to penicillin
CPT/HCPCS: 99283

== ENCOUNTER → 2021-12-28 | Outpatient (CLI) | payer MEDICARE ==
[2021-12-28 13:36] VITALS: BP 133/69; PULSE 77; RESP 18; TEMP 98.4
--- NOTE | 2021-12-28 13:47 | P.PN ---
Progress Note - Text Progress Note Date: 12/28/21 Brianne is a 76-year-old white female status post left breast reduction mammoplasty on 3121. Postprocedure she is doing well. She did have some difficulty with her drain not functioning well she was seen in the emergency room and a clot was removed from the drain. She is seen today and the drainage was about 20 cc. she is not complaining of pain. She is not complaining of any fever or chills. Physical examination: SHYANN drain in place output serous dark approximately 20 mL Incisions all clean and dry no evidence of infection Mild swelling of the left breast Impression: Patient doing well post op Plan continue present therapy follow up next week CC: Dr. Barrett
== END | disposition home or self-care (01) ==
LOC: WWCWWP 13:16
PROVIDERS: ATTEND Surgery
DX: Z53.9 Procedure and treatment not carried out, unspecified reason (principal)

== ENCOUNTER → 2022-01-03 | Outpatient (CLI) | payer MEDICARE ==
--- NOTE | 2022-01-03 14:05 | P.PN ---
Progress Note - Text Progress Note Date: 01/03/22 Brianne is a 76-year-old white female status post left breast reduction mammoplasty on 3121. Postprocedure she is feeling depressed she is taking letrazole for about 6 weeks. She did have some difficulty with her drain not functioning well she was seen in the emergency room and a clot was removed from the drain. She is seen today and the drainage was about 20 cc. she is not complaining of pain. She is not complaining of any fever or chills. Physical examination: SHYANN drain in place output serous approximately 10 mL to 15 mL per day Incisions all clean and dry no evidence of infection Mild swelling of the left breast improved Impression: Patient doing well post op Plan continue present therapy follow up 1 1/2 week She is going to discuss the depression as to whether this may be related to the letrazole with Dr. Amaya
[2022-01-03 14:21] VITALS: BP 145/68; PULSE 57; RESP 16; TEMP 97.9
== END | disposition home or self-care (01) ==
LOC: WWCWWP 13:39
PROVIDERS: ATTEND Surgery
DX: Z53.9 Procedure and treatment not carried out, unspecified reason (principal)

== ENCOUNTER → 2022-01-18 | Outpatient (CLI) | payer MEDICARE ==
[2022-01-18 11:32] VITALS: BP 130/57; PULSE 51; RESP 17; TEMP 97.9
--- NOTE | 2022-01-18 12:33 | P.PN ---
Progress Note - Text Progress Note Date: 01/18/22 Brianne is a 76-year-old white female status post left breast reduction mammoplasty on 3121. Postprocedure she is doing well. She did have some difficulty with her drain not functioning well she was seen in the emergency room and a clot was removed from the drain. She is seen today all her sutures had been removed. She is not complaining of pain. She is not complaining of any fever or chills. Physical examination: Incisions all clean and dry no evidence of infection Mild swelling of the left breast resolving Impression: Patient doing well post op Patient is still taking the letrazole and is taking wellbutrin as per Dr. Barrett Patient is due for a right breast mammogram end of April with an appointment at that time Cc: Dr. Barrett
== END | disposition home or self-care (01) ==
LOC: WWCWWP 11:15
PROVIDERS: ATTEND Surgery
DX: Z53.9 Procedure and treatment not carried out, unspecified reason (principal)

== ENCOUNTER → 2022-05-18 | Outpatient (CLI) | payer MEDICARE ==
--- NOTE | 2022-05-18 13:24 | MM ---
Reason for Exam: Follow-up at short interval from prior study. Last screening mammogram was performed 12 month(s) ago. Patient History: Menarche at age 13. First Full-Term at age 17. Postmenopausal. Breast cancer, age 76. Previous chest radiation therapy. Patient used Estrogen for 3 years. Patient used Progesterone for 3 years. Patient used Hormonal Contraceptives for 13 years. 07/25/2021, Lumpectomy on the Right side. 12/13/2021, Benign Core Biopsy on the right side. 12/13/2021, Benign Core Biopsy on the right side. 07/25/2021, Malignant Core Biopsy on the right side. 06/05/2021, Malignant Core Biopsy on the right side. 10/18/2014, Benign Core Biopsy on the right side. 10/04/2014, Benign Core Biopsy on the right side. Tissue Density: The breast tissue is heterogeneously dense. This may lower the sensitivity of mammography. Findings: Analyzed By CAD. Postlumpectomy changes right breast. Benign calcifications seen bilaterally. No evidence for suspicious cluster or suspicious appearing mass at this time. Overall Assessment: Benign, BI-RAD 2 Management: Diagnostic Mammogram of both breasts in 1 year. A clinical breast exam by your physician is recommended on an annual basis and results should be correlated with mammographic findings. This exam should not preclude additional follow-up of suspicious palpable abnormalities. Results were given to the patient verbally at the time of exam. Electronically signed and approved by: Stefano Rai M.D. Radiologis
== END | disposition home or self-care (01) ==
LOC: RADMAMWWP 12:52
PROVIDERS: ATTEND Surgery
DX: Z85.3 Personal history of malignant neoplasm of breast (principal)
CPT/HCPCS: 77066; G0279; 77062

== ENCOUNTER → 2022-05-24 | Outpatient (CLI) | payer MEDICARE ==
--- NOTE | 2022-05-24 16:51 | BD ---
EXAMINATION TYPE: Axial Bone Density DATE OF EXAM: 05/24/2022 COMPARISON: NONE CLINICAL HISTORY: 76 year old Female. ICD-10 CODE: Z78.0 POST MENOPAUSAL WITHOUT HRT Height: 63 Weight: 166.1 FRAX RISK QUESTIONS: Alcohol (3 or more units per day): no Family History (Parent hip fracture): yes Glucocorticoids (More than 3mos): no (Ex: prednisone, prednisolone, methylprednisolone, dexamethasone, and hydrocortisone). History of Fracture in Adulthood: yes Secondary Osteoporosis: 1. Type 1 Diabetes: no 2. Hyperthyroidism: no 3. Menopause before 45: no 4. Malnutrition: no 5. Chronic liver disease: no Rheumatoid Arthritis: no Current Tobacco Use: no RISK FACTORS HISTORY OF: Surgery to Spine/Hip(right/left)/Wrist (right/left): no Family History of Osteoporosis: yes Active: no Diet low in dairy products/other sources of calcium: yes Postmenopausal woman: yes Lost more than 2 inches in height since high school: yes MEDICATIONS: Osteoporosis Medications: Prolia How Lon infusions Additional Medications: Additional History: EXAM MEASUREMENTS: Bone mineral densitometry was performed using the Mu Sigma System. Bone mineral density as measured about the Lumbar spine is: ----- L1-L4(G/cm2): 1.242 T Score Values are as follows: ----- L1: -0.5 ----- L2: -0.2 ----- L3: 0.5 ----- L4: 2.3 ----- L1-L4: 0.5 Bone mineral density : priors unavailable Bone mineral density about the R hip (g/cm2): 0.696 Bone mineral density about the L hip (g/cm2): 0.642 T Score values are as follows: -----R Neck: -2.5 -----L Neck: -2.8 -----R Total: -1.9 -----L Total: -2.1 Bone mineral density : priors unavailable FRAX%s: The graph provided illustrates a 50.4% chance for a major osteoporotic fx and a 36.5% chance for the hips probability for fx in 10 years time. IMPRESSION: Osteoporosis (T Score less than -2.5). There is increased fracture risk and therapy is usually indicated based on age. Re-Screen 1-2 years. NOTE: T-SCORE=SD OF THE YOUNG ADULT MEAN.
== END | disposition home or self-care (01) ==
LOC: RADBDWWP 08:00
PROVIDERS: ATTEND Family Medicine
DX: M89.9 Disorder of bone, unspecified (principal); Z78.0 Asymptomatic menopausal state; Z85.3 Personal history of malignant neoplasm of breast
CPT/HCPCS: 77080

== ENCOUNTER → 2022-05-24 | Outpatient (CLI) | payer MEDICARE ==
[2022-05-24 08:43] VITALS: BP 163/77; PULSE 62; RESP 17; TEMP 97.9
--- NOTE | 2022-05-24 08:58 | P.PN ---
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 She had a routine mammogram bilateral mammogram which led to a right breast diagnostic mammogram performed on 8320 diagnostic mammogram revealed heterogeneous segmental calcifications. Approximately 3.5 cm at the 8 o'clock position. She underwent a stereotactic core biopsy which revealed DCIS intermediate grade. This was ER positive and [place] positive. She had a right breast lumpectomy and SNB on 07-25-21. Her margins were negative, 23mm DCIS and SNB negative. The superior and inferior margins were close but after discussion with patient and her daughter they opted for radiation and hormonal therapy and close surveillance. She finished radiation therapy on September. She had a left breast mammogram on 11-28-21 which was benign BIRAD 2. She had a right breast ultrasound on 11-24-21 this was suspecious BIRAD 4 and core biopsy of two sites was recommended. This was done on 12-13-21 and both sites were benign post op scar/fat necrosis. She underwent a left breast reduction mammoplasty on 3121 secondary to asymmetry. Note from Dr. Amaya [id number] reviewed; at that time she was experiencing depression possibly related to the aromatase inhibitor that she was taking. She opted to stop the aromatase inhibitor pusher. Time but is again taking this without difficulty. She is on antidepressants from Dr. Barrett. A bilateral mammogram and [id number]. This was benign BIRADS 2. This time the patient is not complaining of any new lumps masses or nodules in either breast. Despite the fact she had a reduction on the left side it is still larger than the right side. The right breast was a 40C and the left was a 40DD. Caffeine: 3 cups coffee/day nicotine: none; second hand smoke in the past [id number] chocolate: rare Family history: sister: lung cancer, smoker Hormonal history: Menarche: 13 , breast fed: no; age at : 17 menopause: 51 BCP: 13 years hormones: none; used fro 1 year at menopause Surgical History: 1. bilateral knee replacement 2. tubaligation 3. Bladder sling 4. Prior stereo biopsy right breast leading to an open biopsy 5. Right breast lumpectomy via reduction mammoplasty incision secondary to DCIS, left breast reduction mammoplasty Medical History: 1. leaking cardiac valve Social History: nicotine: Negative Alcohol: 2-3 drinks wine or vodka/ 6 days /week drugs: none - Constitutional Constitutional: Denies chills, Denies fever - EENT Eyes: denies blurred vision, denies pain Ears: bilateral: decreased hearing, deny: tinnitus Ears, nose, mouth and throat: Reports headache, Denies sore throat - Breasts Breasts: bilateral: as per HPI - Cardiovascular Comment: leaking aortic valve/ uses aspirin daily, high cholesterol Cardiovascular: Reports high blood pressure, Reports shortness of breath, Denies chest pain - Respiratory Comment: chronic cough Respiratory: Reports cough - Gastrointestinal Gastrointestinal: Reports constipation, Denies abdominal pain, Denies diarrhea, Denies nausea, Denies vomiting - Genitourinary (Female) Comment: bladder sling Genitourinary: Denies dysuria, Denies hematuria - Menstruation Menstruation: Reports postmenopausal - Musculoskeletal Musculoskeletal: Reports as per HPI - Integumentary Comment: rash on right breast - Neurological Comment: history of shingles Neurological: Denies numbness, Denies weakness - Psychiatric Psychiatric: Denies anxiety, Denies depression - Endocrine Endocrine: Denies fatigue, Denies weight change - Hematologic/Lymphatic Hematologic/Lymphatic: Reports as per HPI - Allergic/Immunologic Allergic/Immunologic: Reports as per HPI Objective - Constitutional General appearance: Present: cooperative - EENT Eyes: Present: EOMI ENT: Present: hearing grossly normal - Neck Neck: Present: normal ROM - Respiratory Respiratory: bilateral: CTA - Cardiovascular Rhythm: regular Heart sounds: normal: S1, S2 - Integumentary Integumentary: Present: normal turgor - Musculoskeletal Musculoskeletal: Present: gait normal - Psychiatric Psychiatric: Present: A&O x's 3, appropriate affect, intact judgment & insight - Additional findings Additional findings: Breast examination: Bra: 40C Inspection: Left breast slightly larger than right breast well-healed scars from bilateral reduction mammoplasty incisions Palpation: Right breast: Multiple positional exam fibrocystic changes no dominant masses or nodules of concern, postoperative changes and postradiation changes Right axilla: No adenopathy of concern Left breast: Multi-positional exam no dominant masses or nodules of concern Left axilla: No adenopathy of concern Assessment and Plan Assessment: Impression: Right breast DCIS, no evidence of any recurrent disease, patient presently on an aromatase inhibitor Plan: Repeat bilateral mammogram in 1 year Examination in 6 months Continue follow-up with Dr. Tirado follow with radiation oncology C : DR. Barrett
== END | disposition home or self-care (01) ==
LOC: WWCWWP 08:02
PROVIDERS: ATTEND Surgery
DX: Z53.9 Procedure and treatment not carried out, unspecified reason (principal)

== ENCOUNTER → 2022-09-10 | Outpatient (CLI) | payer MEDICARE ==
--- NOTE | 2022-09-10 22:01 | MR ---
EXAMINATION TYPE: MR brain wo/w con DATE OF EXAM: 09/10/2022 4:00 PM CLINICAL INDICATION:Female, 77 years old with history of R41.3 OTHER AMNESIA; COMPARISON: CT brain 09/17/2019 TECHNIQUE: Multi planar, multi sequence imaging was performed through the brain including: T1, T2, In version recovery, susceptibility weighted imaging and gradient echo imaging and Diffusion weighted im aging. The patient was then given intravenous contrast and multi planar, T1 fat-saturation images wer e obtained. IV Contrast: 8 cc Gadavist FINDINGS: The ventricular system, basal cisterns appear unremarkable. Diffusion-weighted imaging shows no evide nce of restricted diffusion to suggest acute/subacute infarct. Intracranial arterial flow voids are m aintained. Midline structures show no abnormality. Scattered foci of high T2 signal intensity are see n within the periventricular white matter. The susceptibility weighted images do not reveal any evide nce for micro-hemorrhage. After administration of gadolinium, no abnormal enhancement is seen. Bilate ral choroid plexus xanthogranulomas in the posterior horn of the lateral ventricles. The bone marrow signal is within normal limits. Mucosal thickening of the paranasal sinuses most pron ounced on the left. IMPRESSION: 1. No evidence of intracranial mass, acute/subacute infarct, or abnormal enhancement. 2. Nonspecific white matter changes, likely related to small vessel ischemic disease 3. Paranasal sinus disease most pronounced on the left.
== END | disposition home or self-care (01) ==
LOC: RADMRIMAIN 14:54
PROVIDERS: ATTEND Family Medicine
DX: J34.89 Other specified disorders of nose and nasal sinuses (principal); R90.82 White matter disease, unspecified
CPT/HCPCS: 70553; A9585

== ENCOUNTER → 2023-05-22 | Outpatient (CLI) | payer MEDICARE ==
--- NOTE | 2023-05-22 11:47 | MM ---
Reason for Exam: Hx of breast cancer, conservation therapy. Last screening mammogram was performed 12 month(s) ago. Patient History: Menarche at age 13. First Full-Term at age 17. Postmenopausal. Breast cancer, right, age 76. Previous chest radiation therapy. Patient used Estrogen for 3 years. Patient used Progesterone for 3 years. Patient used Hormonal Contraceptives for 13 years. 2021, Bilateral Reduction. 07/25/2021, Lumpectomy on the Right side. 12/13/2021, Benign Core Biopsy on the right side. 12/13/2021, Benign Core Biopsy on the right side. 07/25/2021, Malignant Core Biopsy on the right side. 06/05/2021, Malignant Core Biopsy on the right side. 10/18/2014, Benign Core Biopsy on the right side. 10/04/2014, Benign Core Biopsy on the right side. 2021, Radiation Therapy on the right side. Tissue Density: There are scattered fibroglandular densities. Findings: Analyzed By CAD. Postsurgical changes right breast. Biopsy changes right breast. Scattered benign calcific patient's. No new suspicious masses, calcifications or distortions. Overall Assessment: Benign, BI-RAD 2 Management: Screening Mammogram of both breasts in 1 year. Results were given to the patient verbally at the time of exam. Patient should continue monthly self-breast exams. A clinical breast exam by your physician is recommended on an annual basis. This exam should not preclude additional follow-up of suspicious palpable abnormalities. Note on Adry scores and lifetime risk: 1. A Adry score greater than 3% is considered moderate risk. If this is the case, consider specialist referral to assess eligibility for a risk reducing agent. 2. If overall lifetime risk for the development of breast cancer is 20% or higher, the patient may qualify for future screening with alternating mammogram and breast MRI. Electronically signed and approved by: Bobo Jin DO
== END | disposition home or self-care (01) ==
LOC: RADMAMWWP 10:55
PROVIDERS: ATTEND Surgery
DX: R92.8 Other abnormal and inconclusive findings on diagnostic imaging of breast (principal); Z78.0 Asymptomatic menopausal state; Z85.3 Personal history of malignant neoplasm of breast
CPT/HCPCS: 77066; G0279; 77062

== ENCOUNTER → 2023-05-22 | Outpatient (CLI) | payer MEDICARE ==
[2023-05-22 11:42] VITALS: BP 143/77; PULSE 56; RESP 13; TEMP 98.2
--- NOTE | 2023-05-22 11:50 | P.PN ---
Subjective Progress Note Date: 05/22/23 DCIS right breast Brianne is a 77 year old white female seen in consultation for Dr. 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 She had a routine mammogram bilateral mammogram which led to a right breast diagnostic mammogram performed on 8320 diagnostic mammogram revealed heterogeneous segmental calcifications. Approximately 3.5 cm at the 8 o'clock position. She underwent a stereotactic core biopsy which revealed DCIS intermediate grade. This was ER positive and [place] positive. She had a right breast lumpectomy and SNB on 07-25-21. Her margins were negative, 23mm DCIS and SNB negative. The superior and inferior margins were close but after discussion with patient and her daughter they opted for radiation and hormonal therapy and close surveillance. She finished radiation therapy on September. She had a left breast mammogram on 11-28-21 which was benign BIRAD 2. She had a right breast ultrasound on 11-24-21 this was suspecious BIRAD 4 and core biopsy of two sites was recommended. This was done on 12-13-21 and both sites were benign post op scar/fat necrosis. She underwent a left breast reduction mammoplasty on 3121 secondary to asymmetry. She completed adjuvant x-ray therapy and [id number] Amaya 11-21-22 reviewed. She was experiencing depression possibly related to the aromatase inhibitor that she was taking. She opted to stop the aromatase inhibitor for a period of time but is again taking this without difficulty; she is presently on letrazole She is on antidepressants from Dr. Barrett. NOte radiation oncology 11-14-22 reviewed [place]ogram [place] [id number]. This was benign BIRADS 2. This time the patient is not complaining of any new lumps masses or nodules in either breast. Despite the fact she had a reduction on the left side it is still larger than the right side. The right breast was a 40C and the left was a 40DD. 05-22-23 Brianne underwent a bilateral mammogram today, BIRAD 2. She is not complaining of any new lumps masses or nodules of concern in either breast. Caffeine: 3 cups coffee/day nicotine: none; second hand smoke in the past [id number] chocolate: rare Family history: sister: lung cancer, smoker Hormonal history: Menarche: 13 , breast fed: no; age at : 17 menopause: 51 BCP: 13 years hormones: none; used fro 1 year at menopause Surgical History: 1. bilateral knee replacement 2. tubaligation 3. Bladder sling 4. Prior stereo biopsy right breast leading to an open biopsy 5. Right breast lumpectomy via reduction mammoplasty incision secondary to DCIS, left breast reduction mammoplasty Medical History: 1. leaking cardiac valve Social History: nicotine: Negative Alcohol: 2-3 drinks wine or vodka/ 6 days /week drugs: none - Constitutional Constitutional: Denies chills, Denies fever - EENT Eyes: denies blurred vision, denies pain Ears: bilateral: decreased hearing, deny: tinnitus Ears, nose, mouth and throat: Reports headache, Denies sore throat - Breasts Breasts: bilateral: as per HPI - Cardiovascular Comment: leaking aortic valve/ uses aspirin daily, high cholesterol Cardiovascular: Reports high blood pressure, Reports shortness of breath, Denies chest pain - Respiratory Comment: chronic cough Respiratory: Reports cough - Gastrointestinal Gastrointestinal: Reports constipation, Denies abdominal pain, Denies diarrhea, Denies nausea, Denies vomiting - Genitourinary (Female) Comment: bladder sling Genitourinary: Denies dysuria, Denies hematuria - Menstruation Menstruation: Reports postmenopausal - Musculoskeletal Musculoskeletal: Reports as per HPI - Integumentary Comment: rash on right breast - Neurological Comment: history of shingles Neurological: Denies numbness, Denies weakness - Psychiatric Psychiatric: Denies anxiety, Denies depression - Endocrine Endocrine: Denies fatigue, Denies weight change - Hematologic/Lymphatic Hematologic/Lymphatic: Reports as per HPI - Allergic/Immunologic Allergic/Immunologic: Reports as per HPI Objective - Vital Signs Vital signs: Intake & Output 05/21/23 05/22/23 05/22/23 18:59 06:59 18:59 Weight 77.111 kg - Constitutional General appearance: Present: cooperative - EENT Eyes: Present: EOMI ENT: Present: hearing grossly normal - Neck Neck: Present: normal ROM - Respiratory Respiratory: bilateral: CTA - Cardiovascular Rhythm: regular Heart sounds: normal: S1, S2 - Gastrointestinal General gastrointestinal: Present: soft - Integumentary Integumentary: Present: normal turgor - Musculoskeletal Musculoskeletal: Present: gait normal - Psychiatric Psychiatric: Present: A&O x's 3, appropriate affect, intact judgment & insight - Additional findings Additional findings: Breast examination: Bra: 40C Inspection: Left breast slightly larger than right breast well-healed scars from bilateral reduction mammoplasty incisions Palpation: Right breast: Multiple positional exam fibrocystic changes no dominant masses or nodules of concern, postoperative changes and postradiation changes Right axilla: No adenopathy of concern Left breast: Multi-positional exam no dominant masses or nodules of concern Left axilla: No adenopathy of concern Assessment and Plan Assessment: Impression: Right breast DCIS, no evidence of any recurrent disease, patient presently on an aromatase inhibitor Plan: Repeat bilateral mammogram April 2024 Continue follow-up with Dr. Tirado follow with radiation oncology follow up in 6 months C : DR. Barrett
== END ==
LOC: WWCWWP 10:57
PROVIDERS: ATTEND Surgery
DX: D05.11 Intraductal carcinoma in situ of right breast (principal); N64.89 Other specified disorders of breast; F32.A Depression, unspecified; Z92.3 Personal history of irradiation; Z79.811 Long term (current) use of aromatase inhibitors; Z17.0 Estrogen receptor positive status [ER+]; Z91.048 Other nonmedicinal substance allergy status; Z88.0 Allergy status to penicillin; Z91.041 Radiographic dye allergy status; Z88.8 Allergy status to other drugs, medicaments and biological substances

== ENCOUNTER → 2023-10-10 | Outpatient (CLI) | payer MEDICARE ==
--- NOTE | 2023-10-14 14:31 | BMR ---
EXAM DATE: 10/10/2023 EXAM DESCRIPTION: MRI-Breast Bilat (W/WO Contrast) INDICATION: History of right breast cancer status post breast conserving therapy for DCIS in 06/2021 (closest margins less than 1 mm). History of two benign biopsies in the right breast in 10/2021. Patient reports history of left breast reduction. COMPARISON: Comparison was made to prior relevant imaging available in PACS TECHNIQUE: Multiplanar multisequence breast MRI was performed prior to and after administration of 8 mL of Gadavist intravenously. Post processing was performed utilizing a mLED workstation. FINDINGS: There is minimal, symmetric background parenchymal enhancement in breasts that are composed of scattered fibroglandular tissue.. RIGHT BREAST: Postsurgical changes are present in the right breast. Lumpectomy fossa with peripheral enhancement at 9 o'clock position in the posterior breast measures 2.9 x 2.5 cm (series 901, image 60). Non mass enhancement extends along the surgical track anteriorly toward the skin (for example series 201, images 73-84) and posteriorly towards the chest wall (series 901, image 67-72). Otherwise, review of the dynamic contrast enhanced series shows no rapidly enhancing masses or other abnormalities. Please note that biopsy clips from biopsies in 2021 are not clearly identified in the breast due to signal void artifact from postsurgical changes and surgical clips. Diffusely mildly increased T2 signal throughout the breast may be related to interstitial edema due to prior radiation. There is diffuse skin thickening with associated mild hyperenhancement along the right breast which is likely related to prior radiation. There is some mild ill-defined enhancement within the adjacent right-sided chest wall musculature and ribs with some apparent scarring in the anterior right lung. Given the combination of findings, they likely represent evolving post radiation changes. LEFT BREAST: There appear to be small area of non mass enhancement at 6 o'clock position mid depth of the breast (series 901, image 61 and series 902, image 32) measuring approximately 2.3 cm in length which given the history of breast reduction likely represents postsurgical changes. Review of the dynamic contrast enhanced series shows no rapidly enhancing masses or other abnormalities. The T2 weighted series show no abnormality. Bones: There is questionable subcentimeter T1 hypointense enhancing focus (series 301, image 95 and series 901 image 142) in the proximal sternum, which is indeterminate and may represent degenerative change or tortuous vessel. Miscellaneous: Cholelithiasis IMPRESSION: 1. Right breast: BI-RADS Category 3-probably benign. Non masslike enhancement extending from the lumpectomy fossa anteriorly toward the skin and posteriorly towards the chest wall with ill-defined mild enhancement in the adjacent right-sided chest wall musculature, ribs and mild scarring in the anterior lung. Mild skin thickening with hyperenhancement along the right breast. Overall the combination of findings suggesting evolving post radiation changes, probably benign. Recommendation: Short-term follow-up with diagnostic breast MRI in 6 months to reassess. 2. Left breast: BI-RADS Category 2-benign. No MR evidence of malignancy. Benign postsurgical post reduction changes. Correlate with patient history. Recommendation: MRI screening in 1 year. 3. Subcentimeter enhancing focus in the proximal sternum, indeterminate. Recommend attention on follow-up exam. OVERALL ASSESSMENT- BI-RADS 3 MTDD
== END | disposition home or self-care (01) ==
LOC: RADMRIMAIN 12:02
PROVIDERS: ATTEND Family Medicine
DX: C50.919 Malignant neoplasm of unspecified site of unspecified female breast (principal); R23.4 Changes in skin texture; Z98.890 Other specified postprocedural states
CPT/HCPCS: C8908; A9585; 77049

== ENCOUNTER 2024-02-11 12:29 | Emergency (ER) | payer MEDICARE ==
--- NOTE | 2024-02-11 12:59 | ED ---
Fall HPI - General Chief Complaint: Fall Stated Complaint: fall Time Seen by Provider: 02/11/24 12:58 Source: patient, family, RN notes reviewed Mode of arrival: wheelchair Limitations: no limitations - History of Present Illness Initial Comments: 78-year-old female presented to the ER with a chief complaint of a fall. Patient states she was placing her coffee on the end table and turned to sit in her chair when she lost her balance around 7am. She states she fell hitting her head on the carpet. She denies loss of consciousness. She does take a baby aspirin daily. Denies any dizziness, lightheadedness, chest pain, shortness of breath prior to incident. She states her pain is over her right eyebrow. Denies any other injuries or complaints at this time. - Related Data Home Medications Medication Instructions Recorded Confirmed Omeprazole [PriLOSEC] 20 mg PO AC-BRKFST 04/02/14 05/22/23 nadoloL [Corgard] 40 mg PO HS 04/02/14 05/22/23 oxyBUTYnin chloride [Ditropan XL] 15 mg PO DAILY 04/02/14 05/22/23 Aspirin 81 mg PO DAILY 07/23/14 05/22/23 Atorvastatin Calcium [Lipitor] 20 mg PO DAILY 08/21/17 05/22/23 Biotin 5 mg PO DAILY 07/24/21 05/22/23 Cholecalciferol [Vitamin D3 (10 10 mcg PO DAILY 07/24/21 05/22/23 Mcg = 400 Iu)] Ascorbic Acid/Collagen Hydr 1 cap PO DAILY 08/10/21 05/22/23 [Collagen Plus Vit C Capsule] B12/Levomefolate Calcium/B-6 600 mg PO WEEKLY 08/10/21 05/22/23 [Foltx Tablet] Calcium Carbonate [Calcium] 600 mg PO BID 08/10/21 05/22/23 ALPRAZolam [Xanax] 0.25 mg PO DAILY PRN 11/17/21 05/22/23 Citalopram Hydrobromide 40 mg PO DAILY 11/17/21 05/22/23 [Citalopram HBr] Letrozole 2.5 mg PO DAILY 11/17/21 05/22/23 SUMAtriptan succinate [Imitrex] 25 mg PO DAILY PRN 11/17/21 05/22/23 lisinopriL 40 mg PO DAILY 11/17/21 05/22/23 buPROPion XL [Wellbutrin XL] 150 mg PO DAILY 01/18/22 05/22/23 Allergies Allergy/AdvReac Type Severity Reaction Status Date / Time adhesive tape Allergy Intermediate Itching Verified 02/11/24 12:34 amoxicillin Allergy Rash/Hives Verified 02/11/24 12:34 cephalexin Allergy Rash/Hives Verified 02/11/24 12:34 clindamycin Allergy Rash/Hives Verified 02/11/24 12:34 iodine Allergy Itching Verified 02/11/24 12:34 povidone-iodine Allergy Itching Verified 02/11/24 12:34 [From Betadine] tetracycline [Tetracycline] AdvReac Severe Nausea & Verified 02/11/24 12:34 Vomiting Review of Systems ROS Statement: Those systems with pertinent positive or pertinent negative responses have been documented in the HPI. ROS Other: All systems not noted in ROS Statement are negative. Past Medical History Past Medical History: GERD/Reflux, Hyperlipidemia, Hypertension Additional Past Medical History / Comment(s): migraines, aortic valve leakage, breast cancer, bladder leakage History of Any Multi-Drug Resistant Organisms: None Reported Past Surgical History: Bladder Surgery, Breast Surgery, Joint Replacement, Tubal Ligation Additional Past Surgical History / Comment(s): ANDRZEJ KNEE REPLACEMENT, BLADDER SLING, breast biopsy and reduction Past Anesthesia/Blood Transfusion Reactions: No Reported Reaction Past Psychological History: No Psychological Hx Reported Smoking Status: Never smoker Past Alcohol Use History: Daily Past Drug Use History: None Reported - Past Family History Sister(s) Family Medical History: Cancer, Pulmonary Embolus Additional Family Medical History / Comment(s): lung cancer General Exam Limitations: no limitations General appearance: alert, in no apparent distress Head exam: Present: atraumatic, normocephalic, normal inspection Eye exam: Present: normal appearance, PERRL, EOMI, other (Hematoma with superficial abrasion to right lateral eyebrow. No active bleeding.) ENT exam: Present: normal exam, normal oropharynx, mucous membranes moist Neck exam: Present: normal inspection. Absent: tenderness, meningismus, lymphadenopathy Respiratory exam: Present: normal lung sounds bilaterally. Absent: respiratory distress, wheezes, rales, rhonchi, stridor Cardiovascular Exam: Present: regular rate, normal rhythm, normal heart sounds. Absent: systolic murmur, diastolic murmur, rubs, gallop, clicks Extremities exam: Present: normal inspection, full ROM, normal capillary refill. Absent: tenderness, pedal edema, joint swelling, calf tenderness Neurological exam: Present: alert, oriented X3, CN II-XII intact Skin exam: Present: warm, dry, intact, normal color. Absent: rash Course Vital Signs 02/11/24 02/11/24 12:31 15:05 Temperature 98.2 F 97.7 F Pulse Rate 71 70 Respiratory 20 18 Rate Blood Pressure 127/56 169/78 O2 Sat by Pulse 97 100 Oximetry Medical Decision Making - Medical Decision Making Was pt. sent in by a medical professional or institution (, PA, SITE IDENTIFICATION SPECIALIST, urgent care, hospital, or care home...) When possible be specific @ -No Did you speak to anyone other than the patient for history (EMS, parent, family, police, friend...)? What history was obtained from this source @ -No Did you review nursing and triage notes (agree or disagree)? Why? @ -I reviewed and agree with nursing and triage notes Were old charts reviewed (outside hosp., previous admission, EMS record, old EKG, old radiological studies, urgent care reports/EKG's, care home records)? Report findings @ -No old charts were reviewed Differential Diagnosis (chest pain, altered mental status, abdominal pain women, abdominal pain men, vaginal bleeding, weakness, fever, dyspnea, syncope, headache, dizziness, GI bleed, back pain, seizure, CVA, palpatations, mental health, musculoskeletal)? @ -Fracture, dislocation, contusion, hematoma, intracranial hemorrhage, concussion, abrasion, laceration this list does not like to be all-inclusive EKG interpreted by me (3pts min.). @ -None X-rays interpreted by me (1pt min.). @ -None done CT interpreted by me (1pt min.). @ -CT brain C-spine negative for acute process. U/S interpreted by me (1pt. min.). @ -None done What testing was considered but not performed or refused? (CT, X-rays, U/S, labs)? Why? @ -None What meds were considered but not given or refused? Why? @ -None Did you discuss the management of the patient with other professionals (professionals i.e. , PA, SITE IDENTIFICATION SPECIALIST, lab, RT, psych nurse, psychiatric social worker supervisor, director of creative services, teacher, [employer] officer, porter sample case)? Give summary @ -No Was smoking cessation discussed for >3mins.? @ -No Was critical care preformed (if so, how long)? @ -No Were there social determinants of health that impacted care today? How? (Homelessness, low income, unemployed, alcoholism, drug addiction, transportation, low edu. Level, literacy, decrease access to med. care, usp, rehab)? @ -No Was there de-escalation of care discussed even if they declined (Discuss DNR or withdrawal of care, Hospice)? DNR status @ -No What co-morbidities impacted this encounter? (DM, HTN, Smoking, COPD, CAD, Cancer, CVA, ARF, Chemo, Hep., AIDS, mental health diagnosis, sleep apnea, morbid obesity)? @ -None Was patient admitted / discharged? Hospital course, mention meds given and route, prescriptions, significant lab abnormalities, going to OR and other pertinent info. @ -Discharge. 78-year-old female presented to the ER with chief complaint of a fall with head injury. History and physical exam completed. Vitals stable. Patient no signs of acute distress and nontoxic-appearing. No acute neurological findings on exam. CT performed negative for acute process. Results discussed with patient, all questions answered. Strict return parameters discussed. Advise close follow-up with PCP. Patient discharged in stable condition with follow-up to PCP. Patient and daughter, at bedside, expressed understanding and agreement care plan. Case discussed with ED attending, Dr. Santos.] Undiagnosed new problem with uncertain prognosis? @ -No Drug Therapy requiring intensive monitoring for toxicity (Heparin, Nitro, Insulin, Cardizem)? @ -No Were any procedures done? @ -No Diagnosis/symptom? @ -Hematoma/ fall Acute, or Chronic, or Acute on Chronic? @ -Acute Uncomplicated (without systemic symptoms) or Complicated (systemic symptoms)? @ -Uncomplicated Side effects of treatment? @ -No Exacerbation, Progression, or Severe Exacerbation? @ -No Poses a threat to life or bodily function? How? (Chest pain, USA, NC, pneumonia, PE, COPD, DKA, ARF, appy, cholecystitis, CVA, Diverticulitis, Homicidal, Suicidal, threat to staff... and all critical care pts) @ -No - Radiology Data Radiology results: report reviewed, image reviewed Disposition Clinical Impression: Hematoma, Fall Disposition: HOME SELF-CARE Condition: Stable Instructions (If sedation given, give patient instructions): Fall Prevention for Older Adults (ED) Additional Instructions: Follow-up with PCP. Return to the ER for new or worsening concerns. Is patient prescribed a controlled substance at d/c from ED?: No Referrals: Ro Barrett MD [Primary Care Provider] - 1-2 days Time of Disposition: 15:02
--- NOTE | 2024-02-11 14:47 | CT ---
EXAMINATION TYPE: CT brain cspine wo con CT DLP: Fall mGycm, Automated exposure control for dose reduction was used. DATE OF EXAM: 02/11/2024 2:16 PM COMPARISON: 05/26/2020, 09/17/2019. CLINICAL INDICATION:Female, 78 years old with history of fall; 1420.2 TECHNIQUE: Brain: Multiple axial CT images of the brain were obtained without IV contrast. Cspine: Axial CT images from the skull base to the inferior aspect of T2 we obtained without intraven ous contrast. Coronal and sagittal reformatted images were also reviewed. FINDINGS: Brain: Extra-axial spaces: No abnormal extra-axial fluid collections. Ventricular system: Dilatation in proportion to cerebral atrophy. Cerebral parenchyma: No acute intraparenchymal hemorrhage or mass effect. The hernandez-white junction is well differentiated. Scattered hypoattenuating areas are seen within the white matter. Cerebellum: Unremarkable. Mass effect: No evidence of midline shift. Intracranial vasculature: unremarkable Soft tissues: Normal. Calvarium/osseous structures: No depressed skull fracture. Paranasal sinuses and mastoid air cells: Chronic paranasal sinus disease most pronounced in the sphen oid sinuses noted on the left. Visualized orbits: Orbital contents are intact. Cervical spine: Fracture: None. Osseous structures: Multilevel degenerative disc disease changes with endplate spurring and disc oste ophyte complex's. Vertebral alignment: Within normal limits. Spinal canal/Neural Foramina: No evidence of significant spinal canal narrowing. No evidence for sign ificant neural foraminal stenosis. Neck soft tissues: Prevertebral soft tissues are within normal limits. Other: The airway is patent. The lung apices are clear. IMPRESSION: 1. No acute intracranial process. 2. Nonspecific white matter changes, likely secondary to chronic small vessel ischemic disease. 3. No evidence of cervical spine fracture. 4. Moderate multilevel degenerative disc disease.
[2024-02-11 15:23] VITALS: BP 169/78; PULSE 70; RESP 18; TEMP 97.7
== END 2024-02-11 15:11 | disposition home or self-care (01) ==
LOC: EC 12:29
DX: S00.11XA Contusion of right eyelid and periocular area, initial encounter (principal); Z88.0 Allergy status to penicillin; Z88.1 Allergy status to other antibiotic agents; Z91.041 Radiographic dye allergy status; Z88.8 Allergy status to other drugs, medicaments and biological substances; W18.09XA Striking against other object with subsequent fall, initial encounter
CPT/HCPCS: 70450; 72125; 99284

== ENCOUNTER → 2024-05-25 | Outpatient (CLI) | payer MEDICARE ==
--- NOTE | 2024-05-25 09:25 | MM ---
Reason for Exam: Hx of breast cancer, conservation therapy. Last screening mammogram was performed 12 month(s) ago. Patient History: Menarche at age 13. First Full-Term at age 17. Postmenopausal. Breast cancer, right, age 76. Previous chest radiation therapy. Patient used Estrogen for 3 years. Patient used Progesterone for 3 years. Patient used Hormonal Contraceptives for 13 years. 2021, Bilateral Reduction. 07/25/2021, Lumpectomy on the Right side. 12/13/2021, Benign Core Biopsy on the right side. 12/13/2021, Benign Core Biopsy on the right side. 07/25/2021, Malignant Core Biopsy on the right side. 06/05/2021, Malignant Core Biopsy on the right side. 10/18/2014, Benign Core Biopsy on the right side. 10/04/2014, Benign Core Biopsy on the right side. 2021, Radiation Therapy on the right side. Prior Study Comparison: 12/27/2010 Screening Mammogram, [place]. 10/01/2016 Bilateral Screening Mammogram, [facility]. 01/02/2018 Bilateral Screening Mammogram, [facility]. 01/08/2019 Bilateral Screening Mammogram, [facility]. 05/03/2020 Bilateral Screening Mammogram, [facility]. 05/16/2021 Bilateral Screening Mammogram, [facility]. 05/30/2021 Right Diagnostic Mammogram, [facility]. 11/24/2021 Right Diagnostic Ultrasound, [facility]. 11/28/2021 Left Diagnostic Mammogram, [facility]. 12/13/2021 Right Diagnostic Mammogram, [facility]. 05/18/2022 Bilateral MG 3D diag mammo w/cad ANDRZEJ, [facility]. 05/22/2023 Bilateral MG 3D diag mammo w/cad ANDRZEJ, [facility]. 10/10/2023 Bilateral MR breast bilat wo/w con, [facility]. Tissue Density: The breasts are heterogeneously dense, which may obscure small masses. Findings: Analyzed By CAD. At the site of clinical concern at the prior biopsy site upper outer right breast there is increasing puckering noted. Ultrasound is recommended. No obvious mass appreciated however. Distortion left breast from prior reduction mammoplasty. Benign calcifications are seen bilaterally. Overall Assessment: Incomplete: need additional imaging evaluation, BI-RAD 0 Management: Diagnostic Breast Ultrasound of the right breast. . Results were given to the patient verbally at the time of exam. Patient should continue monthly self-breast exams. A clinical breast exam by your physician is recommended on an annual basis. This exam should not preclude additional follow-up of suspicious palpable abnormalities. Note on Adry scores and lifetime risk: 1. A Adry score greater than 3% is considered moderate risk. If this is the case, consider specialist referral to assess eligibility for a risk reducing agent. 2. If overall lifetime risk for the development of breast cancer is 20% or higher, the patient may qualify for future screening with alternating mammogram and breast MRI. Electronically signed and approved by: Stefano Rai M.D. Radiologis
--- NOTE | 2024-05-25 10:40 | BD ---
EXAMINATION TYPE: Axial Bone Density DATE OF EXAM: 05/25/2024 CLINICAL HISTORY: 78 years old Female. ICD-10 CODE: M81.0 AGE-RELATED OSTEOPOROSIS Height: 63 Weight: 164.5 FRAX RISK QUESTIONS: Alcohol (3 or more units per day): no Family History (Parent hip fracture): yes Glucocorticoids (More than 3mos): no (Ex: prednisone, prednisolone, methylprednisolone, dexamethasone, and hydrocortisone). History of Fracture in Adulthood: yes Secondary Osteoporosis: 1. Type 1 Diabetes: no 2. Hyperthyroidism: no 3. Menopause before 45: no 4. Malnutrition: no 5. Chronic liver disease: no Rheumatoid Arthritis: no Current Tobacco Use: no RISK FACTORS HISTORY OF: Surgery to Spine/Hip(right/left)/Wrist (right/left): no MEDICATIONS: Osteoporosis Medications: prolia How Long: EXAM MEASUREMENTS: Bone mineral densitometry was performed using the 50 Cubes System. Bone mineral density as measured about the Lumbar spine is: ----- L1-L4(G/cm2): 1.140 T Score Values are as follows: ----- L1: -1.3 ----- L2: -0.6 ----- L3: -0.9 ----- L4: 1.4 ----- L1-L4: -0.3 Z Score Values are as follows: ----- L1: 0.2 ----- L2: 0.8 ----- L3: 0.6 ----- L4: 2.9 ----- L1-L4: 1.1 Bone mineral density has: decreased -8.2 % since study of: 05.24.2022 Bone mineral density about the R hip (g/cm2): 0.765 Bone mineral density about the L hip (g/cm2): 0.734 T Score values are as follows: -----R Neck: -2.4 -----L Neck: -2.7 -----R Total: -1.9 -----L Total: -2.2 Z Score values are as follows: -----R Neck: -0.5 -----L Neck: -0.8 -----R Total: -0.3 -----L Total: -0.5 Bone mineral density has: decreased -0.7% since study of: 7.28.2021 FRAX%s: The graph provided illustrates a 48.3% chance for a major osteoporotic fx and a 34.2% chance for the hips probability for fx in 10 years time. IMPRESSION: Osteopenia (T Score between -2.5 and -1). There is slightly increased risk of fracture and the patient may be considered for treatment. Re-Screen 2-5 years. NOTE: T-SCORE=SD OF THE YOUNG ADULT MEAN.
== END | disposition home or self-care (01) ==
LOC: RADBDWWP 08:47
PROVIDERS: ATTEND Internal Medicine Hematology & Oncology
DX: M81.0 Age-related osteoporosis without current pathological fracture (principal); C50.311 Malignant neoplasm of lower-inner quadrant of right female breast; E78.5 Hyperlipidemia, unspecified; R92.333 Mammographic heterogeneous density, bilateral breasts; M85.89 Other specified disorders of bone density and structure, multiple sites; Z71.3 Dietary counseling and surveillance; Z78.0 Asymptomatic menopausal state; Z85.3 Personal history of malignant neoplasm of breast
CPT/HCPCS: 77080; 77066; G0279; 77062

== ENCOUNTER → 2024-05-25 | Outpatient (CLI) | payer MEDICARE ==
--- NOTE | 2024-05-25 10:02 | USB ---
Reason for Exam: Clinical finding. Patient History: Menarche at age 13. First Full-Term at age 17. Postmenopausal. Breast cancer, right, age 76. Previous chest radiation therapy. Patient used Estrogen for 3 years. Patient used Progesterone for 3 years. Patient used Hormonal Contraceptives for 13 years. 2021, Bilateral Reduction. 07/25/2021, Lumpectomy on the Right side. 12/13/2021, Benign Core Biopsy on the right side. 12/13/2021, Benign Core Biopsy on the right side. 07/25/2021, Malignant Core Biopsy on the right side. 06/05/2021, Malignant Core Biopsy on the right side. 10/18/2014, Benign Core Biopsy on the right side. 10/04/2014, Benign Core Biopsy on the right side. 2021, Radiation Therapy on the right side. Technique: Method: Targeted. Prior Study Comparison: 12/13/2021 Right Diagnostic Mammogram, [facility]. 05/18/2022 Bilateral MG 3D diag mammo w/cad ANDRZEJ, [facility]. 05/22/2023 Bilateral MG 3D diag mammo w/cad ANDRZEJ, [facility]. Findings: The area of palpable concern of the right breast, the axilla of the right breast and the retroareolar of the right breast were scanned. At the site of clinical concern in the right breast 10:00 position 6 cm from the nipple there is an area of decreased echogenicity which could reflect lumpectomy cavity site however underlying mass is not excluded and MRI of the breast is advised.. Overall Assessment: Incomplete: need additional imaging evaluation, BI-RAD 0 Management: Diagnostic Breast MRI of the right breast. A clinical breast exam by your physician is recommended on an annual basis and results should be correlated with mammographic findings. This exam should not preclude additional follow-up of suspicious palpable abnormalities. Results were given to the patient verbally at the time of exam. Electronically signed and approved by: Stefano Rai M.D. Radiologis
== END | disposition home or self-care (01) ==
LOC: RADMAMWWP 08:44
PROVIDERS: ATTEND Surgery
DX: C50.911 Malignant neoplasm of unspecified site of right female breast (principal); Z85.3 Personal history of malignant neoplasm of breast; Z78.0 Asymptomatic menopausal state; Z92.0 Personal history of contraception; Z92.3 Personal history of irradiation

== ENCOUNTER → 2024-05-28 | Outpatient (CLI) | payer MEDICARE ==
[2024-05-28 10:20] VITALS: BP 140/76; PULSE 59; RESP 17; TEMP 97.9
--- NOTE | 2024-05-28 10:26 | P.PN ---
Subjective Progress Note Date: 05/28/24 Principal diagnosis: abnormal right breast mammogram and ultrasound/ 05/22/23 DCIS right breast 2020 Brianne is a 77 year old white female seen in consultation for Dr. 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 She had a routine mammogram bilateral mammogram which led to a right breast diagnostic mammogram performed on 8320 diagnostic mammogram revealed heterogeneous segmental calcifications. Approximately 3.5 cm at the 8 o'clock position. She underwent a stereotactic core biopsy which revealed DCIS intermediate grade. This was ER positive and MN positive. She had a right breast lumpectomy and SNB on 07-25-21. Her margins were negative, 23mm DCIS and SNB negative. The superior and inferior margins were close but after discussion with patient and her daughter they opted for radiation and hormonal therapy and close surveillance. She finished radiation therapy on September. She had a left breast mammogram on 11-28-21 which was benign BIRAD 2. She had a right breast ultrasound on 11-24-21 this was suspecious BIRAD 4 and core biopsy of two sites was recommended. This was done on 12-13-21 and both sites were benign post op scar/fat necrosis. She underwent a left breast reduction mammoplasty on 3121 secondary to asymmetry. She completed adjuvant x-ray therapy and [id number] Amaya 11-21-22 reviewed. She was experiencing depression possibly related to the aromatase inhibitor that she was taking. She opted to stop the aromatase inhibitor for a period of time but is again taking this without difficulty; she is presently on letrazole She is on antidepressants from Dr. Barrett. NOte radiation oncology 11-14-22 reviewed A bilateral mammogram and . This was benign BIRADS 2. This time the patient is not complaining of any new lumps masses or nodules in either breast. Despite the fact she had a reduction on the left side it is still larger than the right side. The right breast was a 40C and the left was a 40DD. 05-22-23 Brianne underwent a bilateral mammogram today, BIRAD 2. She is not complaining of any new lumps masses or nodules of concern in either breast. 05-28-24 Brianne had a right breast lumpectomy and SNB on 07-25-21 for DCIS. Her margins were negative, 23mm DCIS and SNB negative. The superior and inferior margins were close but after discussion with patient and her daughter they opted for radiation and hormonal therapy and close surveillance. She finished radiation therapy on September. Mammogram 05-25-2024 incomplete right breast ultrasound recommended personally interpreted Right breast ultrasound on same date felt to be incomplete the area of palpable concern of the right breast the axilla of the right breast in the retroareolar region were scanned at the site of clinical concern 6 cm from the nipple there was an area of decreased echogenicity which could reflect lumpectomy cavity site however underlying mass was not excluded and an MRI was recommended Note medical oncology 11-26-2023 Dr. Amaya reviewed; letrozole The patient noted a dimple in her right breast and some fullness. Caffeine: 3 cups coffee/day nicotine: none; second hand smoke in the past [id number] chocolate: rare Family history: sister: lung cancer, smoker Hormonal history: Menarche: 13 , breast fed: no; age at : 17 menopause: 51 BCP: 13 years hormones: none; used fro 1 year at menopause Surgical History: 1. bilateral knee replacement 2. tubaligation 3. Bladder sling 4. Prior stereo biopsy right breast leading to an open biopsy 5. Right breast lumpectomy via reduction mammoplasty incision secondary to DCIS, left breast reduction mammoplasty Medical History: 1. leaking cardiac valve Social History: nicotine: Negative Alcohol: 2-3 drinks wine or vodka/ 6 days /week drugs: none - Constitutional Constitutional: Denies chills, Denies fever - EENT Eyes: denies blurred vision, denies pain Ears: bilateral: decreased hearing, deny: tinnitus Ears, nose, mouth and throat: Reports headache, Denies sore throat - Breasts Breasts: bilateral: as per HPI - Cardiovascular Comment: leaking aortic valve/ uses aspirin daily, high cholesterol Cardiovascular: Reports high blood pressure, Reports shortness of breath, Denies chest pain - Respiratory Comment: chronic cough Respiratory: Reports cough - Gastrointestinal Gastrointestinal: Reports constipation, Denies abdominal pain, Denies diarrhea, Denies nausea, Denies vomiting - Genitourinary (Female) Comment: bladder sling Genitourinary: Denies dysuria, Denies hematuria - Menstruation Menstruation: Reports postmenopausal - Musculoskeletal Musculoskeletal: Reports as per HPI - Integumentary Comment: rash on right breast - Neurological Comment: history of shingles Neurological: Denies numbness, Denies weakness - Psychiatric Psychiatric: Denies anxiety, Denies depression - Endocrine Endocrine: Denies fatigue, Denies weight change - Hematologic/Lymphatic Hematologic/Lymphatic: Reports as per HPI - Allergic/Immunologic Allergic/Immunologic: Reports as per HPI Objective - Constitutional General appearance: Present: cooperative - EENT Eyes: Present: EOMI ENT: Present: hearing grossly normal - Neck Neck: Present: normal ROM - Respiratory Respiratory: bilateral: CTA - Cardiovascular Heart sounds: normal: S1, S2 - Integumentary Integumentary: Present: normal turgor - Musculoskeletal Musculoskeletal: Present: gait normal - Psychiatric Psychiatric: Present: A&O x's 3, appropriate affect, intact judgment & insight - Additional findings Additional findings: Breast examination: Bra: 40C Inspection: Left breast slightly larger than right breast well-healed scars from bilateral reduction mammoplasty incisions, some skin dimpling is present at the lateral aspect of the right breast Palpation: Right breast: Multiple positional exam postoperative changes and postradiation changes, fullness lateral aspect of the right breast approximately 3 x 4 cm with skin dimpling at that site may represent fat necrosis Right axilla: No adenopathy of concern Left breast: Multi-positional exam no dominant masses or nodules of concern Left axilla: No adenopathy of concern Assessment and Plan Assessment: Impression: Right breast DCIS patient presently on an aromatase inhibitor Right breast Abnormal right breast ultrasound Plan: We are going to attempt to get an MRI of the breast, if this is going to take longer than 1 to 2 weeks then we will get an ultrasound-guided core biopsy of the right breast prior to the MRI Follow-up after ultrasound-guided core biopsy right breast Ultrasound-guided core biopsy right breast MRI of the breast Follow-up after ultrasound core biopsy and MRI of the breast performed Continue follow-up with Dr. Tirado follow with radiation oncology C : DR. Barrett
== END ==
LOC: WWCWWP 09:30
PROVIDERS: ATTEND Surgery
DX: R92.1 Mammographic calcification found on diagnostic imaging of breast (principal); D05.11 Intraductal carcinoma in situ of right breast; F32.A Depression, unspecified; N64.89 Other specified disorders of breast; Z92.3 Personal history of irradiation; Z91.048 Other nonmedicinal substance allergy status; Z88.0 Allergy status to penicillin; Z88.1 Allergy status to other antibiotic agents; Z88.8 Allergy status to other drugs, medicaments and biological substances

== ENCOUNTER → 2024-06-26 | Outpatient (CLI) | payer MEDICARE ==
--- NOTE | 2024-07-09 16:33 | BMR ---
EXAM DATE: 06/26/2024 EXAM DESCRIPTION: MRI-Breast Bilat (W/WO Contrast) INDICATION: Short interval follow-up of right breast findings. History of right breast cancer status post breast conserving therapy in 2020. COMPARISON: Comparison is made with relevant prior imaging in PACS. CONTRAST: 7.5 cc of Gadavist TECHNIQUE: Multiplanar MRI imaging of both breasts was performed with a dedicated breast coil, before and after intravenous administration of gadolinium contrast, using the standard breast mass protocol. Computer-aided detection was used to aid in interpretation. Study was performed at [facility] with Radiologic interpretation by [facility]. FINDINGS: General breast composition: There are scattered areas of fibroglandular tissue Background parenchymal enhancement: Minimal FINDINGS: Right Breast: Review of the dynamic contrast-enhanced series shows postsurgical changes. There is increasing non mass enhancement surrounding the lumpectomy bed and extending to and involving the skin. The non mass enhancement also extends with abnormal enhancement of the pectoralis major muscle. The entire area measures 9.0 x 2.8 x 2.5 cm (505:348, 601:161). No lymphadenopathy. Left Breast: Review of the dynamic contrast-enhanced series shows postsurgical changes. The previously seen non mass enhancement in the 6 o'clock position has resolved. No new rapidly enhancing masses, suspicious enhancement patterns or other abnormalities. Miscellaneous findings:There is abnormal enhancement involving the lower anterior right ribs with likely nondisplaced fracture. Cholelithiasis. IMPRESSION: There is abnormal enhancement involving the lower anterior right ribs with likely nondisplaced fracture. These may be radiation induced changes however a CT chest is recommended for further evaluation. Right Breast: BI-RADS Category4- Suspicious 1. Increasing non mass enhancement surrounding the lumpectomy bed and extending to and involving the skin as well as extending posteriorly and involving the pectoralis muscle. This may represent evolving fat necrosis, however given increase in extent of non mass enhancement, targeted ultrasound and biopsy are recommended. If no sonographic target available, an MR biopsy is recommended. 2. No lymphadenopathy Recommendation: Targeted ultrasound and ultrasound-guided biopsy is recommended. If no sonographic target available, MR biopsy is recommended. Left Breast: BI-RADS Category 2- Benign Postsurgical changes are present in the left breast. The previously seen non mass enhancement has resolved. No MRI evidence of malignancy. Recommendation: Routine screening. OVERALL ASSESSMENT -- BI-RADS 4 Cholelithiasis Examination was performed on 06/26/2024 however made available on 07/07/2024 and completed on 07/08/2024. [facility]
== END | disposition home or self-care (01) ==
LOC: RADMRIMAIN 05:50
PROVIDERS: ATTEND Surgery
DX: Z85.3 Personal history of malignant neoplasm of breast (principal); K80.20 Calculus of gallbladder without cholecystitis without obstruction
CPT/HCPCS: C8908; A9585; 77049

== ENCOUNTER → 2024-07-29 | Day surgery (SDC) | payer MEDICARE ==
--- NOTE | 2024-08-10 09:34 | MM ---
Reason for Exam: Post Procedure Mammogram. Last screening mammogram was performed 3 month(s) ago. Patient History: Menarche at age 13. First Full-Term at age 17. Postmenopausal. Breast cancer, right, age 76. Previous chest radiation therapy. Patient used Estrogen for 3 years. Patient used Progesterone for 3 years. Patient used Hormonal Contraceptives for 13 years. 2021, Bilateral Reduction. 07/25/2021, Lumpectomy on the Right side. 12/13/2021, Benign Core Biopsy on the right side. 12/13/2021, Benign Core Biopsy on the right side. 07/25/2021, Malignant Core Biopsy on the right side. 06/05/2021, Malignant Core Biopsy on the right side. 10/18/2014, Benign Core Biopsy on the right side. 10/04/2014, Benign Core Biopsy on the right side. 2021, Radiation Therapy on the right side. Prior Study Comparison: 05/18/2022 Bilateral MG 3D diag mammo w/cad ANDRZEJ, [facility]. 05/22/2023 Bilateral MG 3D diag mammo w/cad ANDRZEJ, [facility]. 05/25/2024 Bilateral MG 3D diag mammo w/cad ANDRZEJ, [facility]. Tissue Density: Right: The breasts are heterogeneously dense, which may obscure small masses. Pathology Description: Location: 10 o'clock. Approach: Lateral to Medial Needle Type: Janette Cores: 5 Gauge: 13 The procedure of ultrasound guided core biopsy was explained to the patient. Benefits, alternatives, and risks were discussed. An informed consent was then obtained. The patient was placed in supine positioning for imaging and for the procedure. The overlying skin was prepped and draped in usual sterile fashion. Lidocaine buffered with bicarbonate was used as anesthetic into the skin and subcutaneous tissue up to area of concern in the right 10:00 breast. A rupert was made with surgical scalpel. Under ultrasound guidance, a 12-gauge vacuum assisted biopsy gun device was used to obtain 5 core samples. Following this, a biopsy clip was left in lesion. The patient tolerated the procedure well without any immediate complication. The patient was kept in the radiology department for short stay after the procedure and then discharged home in stable condition. Postprocedure mammogram: The patient was transferred to mammography for physician ordered post procedure mammogram for clip placement verification. Impression: Successful, uncomplicated ultrasound guided core biopsy of area of concern in the right 10:00 breast, full pathology results to follow. [facility], , 07/29/2024 1:39 PM. Pathology Results: Result: Benign, Fat necrosis. Pathology and radiology were reviewed. Findings are concordant. 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 Current specimen negative for diagnostic malignancy. Focal microcalcification present. Overall Assessment: Benign Assessment: MG diagnostic mammo RT wo CAD - Right: Benign, BI-RAD 2. Management: Diagnostic Breast Ultrasound of the right breast in 6 months. Electronically signed and approved by: Stefano Rai M.D. Radiologis
== END ==
LOC: RADUSWWP 12:23
PROVIDERS: ATTEND Surgery
DX: N60.11 Diffuse cystic mastopathy of right breast (principal); N61.0 Mastitis without abscess; N64.1 Fat necrosis of breast; Z85.3 Personal history of malignant neoplasm of breast
CPT/HCPCS: 88305; 77065; 19083; A4648

== ENCOUNTER → 2024-09-01 | Outpatient (CLI) | payer MEDICARE ==
--- NOTE | 2024-09-01 09:52 | CT ---
EXAMINATION TYPE: CT chest wo con DATE OF EXAM: 09/01/2024 9:25 AM COMPARISON: MRI bilateral breasts 06/26/2024 CLINICAL INDICATION: Female, 79 years old with history of R68.89 OTHER GENERAL SYMPTOMS AND SIGNS, ri ght sided rib mass TECHNIQUE: Axial images were obtained at 5 mm thick sections. Reconstructed images are reviewed on [employer] computer in the coronal plane. Contrast used: mL of , (none if empty) Oral contrast used: (none if empty) CT DLP: 263.3 mGycm, Automated exposure control for dose reduction was used. FINDINGS: Portion of the thyroid visualized is normal. No suspicious lung nodules or focal infiltrates are present. No enlarged mediastinal or hilar adenopathy is evident. The ascending aorta diameter at the level o f the main pulmonary artery is 3.3 cm. The main pulmonary artery diameter at the bifurcation is 3.[address] sections are obtained through the upper abdomen. Abdomen is essentially unremarkable. There is a nondisplaced rib fracture which may be a nonunion with smooth cortical margins along the l ateral right 5th rib. No expansile lesion evident. Spondylosis within the thoracic spine. Some degenerative disc changes are in the lower thoracic spine with loss of disc height and endplate changes. IMPRESSION: 1. 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 2. No suspicious acute pulmonary process. [facility], , 09/01/2024 9:50 AM
== END | disposition home or self-care (01) ==
LOC: RADCTMAIN 09:05
PROVIDERS: ATTEND Surgery
DX: S22.31XA Fracture of one rib, right side, initial encounter for closed fracture (principal); M51.34 Other intervertebral disc degeneration, thoracic region; M47.894 Other spondylosis, thoracic region; R68.89 Other general symptoms and signs
CPT/HCPCS: 71250

== ENCOUNTER → 2024-09-01 | Outpatient (CLI) | payer MEDICARE ==
[2024-09-01 08:19] VITALS: BP 138/79; PULSE 62; RESP 17; TEMP 97.8
--- NOTE | 2024-09-01 08:33 | P.PN ---
Subjective Progress Note Date: 09/01/24 Principal diagnosis: right breast DCIS 05/28/24 Principal diagnosis: abnormal right breast mammogram and ultrasound/ 05/22/23 DCIS right breast 2020 Brianne is a 77 year old white female seen in consultation for Dr. 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 She had a routine mammogram bilateral mammogram which led to a right breast diagnostic mammogram performed on 8320 diagnostic mammogram revealed heterogeneous segmental calcifications. Approximately 3.5 cm at the 8 o'clock position. She underwent a stereotactic core biopsy which revealed DCIS intermediate grade. This was ER positive and ID positive. She had a right breast lumpectomy and SNB on 07-25-21. Her margins were negative, 23mm DCIS and SNB negative. The superior and inferior margins were close but after discussion with patient and her daughter they opted for radiation and hormonal therapy and close surveillance. She finished radiation therapy on September. She had a left breast mammogram on 11-28-21 which was benign BIRAD 2. She had a right breast ultrasound on 11-24-21 this was suspecious BIRAD 4 and core biopsy of two sites was recommended. This was done on 12-13-21 and both sites were benign post op scar/fat necrosis. She underwent a left breast reduction mammoplasty on 3121 secondary to asymmetry. She completed adjuvant x-ray therapy and [id number] Amaya 11-21-22 reviewed. She was experiencing depression possibly related to the aromatase inhibitor that she was taking. She opted to stop the aromatase inhibitor for a period of time but is again taking this without difficulty; she is presently on letrazole She is on antidepressants from Dr. Barrett. NOte radiation oncology 11-14-22 reviewed A bilateral mammogram and . This was benign BIRADS 2. This time the patient is not complaining of any new lumps masses or nodules in either breast. Despite the fact she had a reduction on the left side it is still larger than the right side. The right breast was a 40C and the left was a 40DD. 05-22-23 Brianne underwent a bilateral mammogram today, BIRAD 2. She is not complaining of any new lumps masses or nodules of concern in either breast. 05-28-24 Brianne had a right breast lumpectomy and SNB on 07-25-21 for DCIS. Her margins were negative, 23mm DCIS and SNB negative. The superior and inferior margins were close but after discussion with patient and her daughter they opted for radiation and hormonal therapy and close surveillance. She finished radiation therapy on September. Mammogram 05-25-2024 incomplete right breast ultrasound recommended personally interpreted Right breast ultrasound on same date felt to be incomplete the area of palpable concern of the right breast the axilla of the right breast in the retroareolar region were scanned at the site of clinical concern 6 cm from the nipple there was an area of decreased echogenicity which could reflect lumpectomy cavity site however underlying mass was not excluded and an MRI was recommended Note medical oncology 11-26-2023 Dr. Amaya reviewed; letrozole The patient noted a dimple in her right breast and some fullness. 09-01-24 right breast DCIS 2020 Brianne is a 79 year old white female seen in consultation for Dr. 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 She had a routine mammogram bilateral mammogram which led to a right breast diagnostic mammogram performed on 8320 diagnostic mammogram revealed heterogeneous segmental calcifications. Approximately 3.5 cm at the 8 o'clock position. She underwent a stereotactic core biopsy which revealed DCIS intermediate grade. This was ER positive and ID positive. She had a right breast lumpectomy and SNB on 07-25-21. Her margins were negative, 23mm DCIS and SNB negative. The superior and inferior margins were close but after discussion with patient and her daughter they opted for radiation and hormonal therapy and close surveillance. She finished radiation therapy on September. Mammogram 05-25-2024 incomplete right breast ultrasound recommended personally interpreted Right breast ultrasound on same date felt to be incomplete the area of palpable concern of the right breast the axilla of the right breast in the retroareolar region were scanned at the site of clinical concern 6 cm from the nipple there was an area of decreased echogenicity which could reflect lumpectomy cavity site however underlying mass was not excluded and an MRI was recommended MRI of the breast on 06-26-2024, this revealed non-mass enhancement surrounding the lumpectomy bed and extending to and involving the skin. The non-mass enhancement also extends with abnormal enhancement of the pec muscle. The entire area measures 9 x 2.8 cm. No lymphadenopathy. Left breast: Review of the dynamic contrast-enhanced series shows postsurgical changes. The mass enhancement previously seen at 6:00 has resolved. No lesions of concern Abnormal enhancement involving the lower anterior right ribs with likely nondisplaced fracture. Cholelithiasis Abnormal enhancement involving the lower left anterior right ribs this may be radiation-induced changes a CT of the chest is recommended Right breast: Increasing enhancement may represent fat necrosis targeted ultrasound biopsy recommended Left breast no lesions of concern Patient underwent a ultrasound-guided core biopsy on 07-29-2024 which revealed fibrous scar with acute and chronic mastitis and fat necrosis no evidence of malignancy note Dr Amaya 11-26-23 continue letrazole The patient states that an area of firmness in the lateral aspect of the right breast has increased in size. Caffeine: 3 cups coffee/day nicotine: none; second hand smoke in the past [id number] chocolate: rare Family history: sister: lung cancer, smoker Hormonal history: Menarche: 13 , breast fed: no; age at : 17 menopause: 51 BCP: 13 years hormones: none; used fro 1 year at menopause Surgical History: 1. bilateral knee replacement 2. tubaligation 3. Bladder sling 4. Prior stereo biopsy right breast leading to an open biopsy 5. Right breast lumpectomy via reduction mammoplasty incision secondary to DCIS, left breast reduction mammoplasty Medical History: 1. leaking cardiac valve Social History: nicotine: Negative Alcohol: 2-3 drinks wine or vodka/ 6 days /week drugs: none - Constitutional Constitutional: Denies chills, Denies fever - EENT Eyes: denies blurred vision, denies pain Ears: bilateral: decreased hearing, deny: tinnitus Ears, nose, mouth and throat: Reports headache, Denies sore throat - Breasts Breasts: bilateral: as per HPI - Cardiovascular Comment: leaking aortic valve/ uses aspirin daily, high cholesterol Cardiovascular: Reports high blood pressure, Reports shortness of breath, Denies chest pain - Respiratory Comment: chronic cough Respiratory: Reports cough - Gastrointestinal Gastrointestinal: Reports constipation, Denies abdominal pain, Denies diarrhea, Denies nausea, Denies vomiting - Genitourinary (Female) Comment: bladder sling Genitourinary: Denies dysuria, Denies hematuria - Menstruation Menstruation: Reports postmenopausal - Musculoskeletal Musculoskeletal: Reports as per HPI - Integumentary Comment: rash on right breast - Neurological Comment: history of shingles Neurological: Denies numbness, Denies weakness - Psychiatric Psychiatric: Denies anxiety, Denies depression - Endocrine Endocrine: Denies fatigue, Denies weight change - Hematologic/Lymphatic Hematologic/Lymphatic: Reports as per HPI - Allergic/Immunologic Allergic/Immunologic: Reports as per HPI Objective - Constitutional General appearance: Present: cooperative - EENT Eyes: Present: EOMI ENT: Present: hearing grossly normal - Neck Neck: Present: normal ROM - Respiratory Respiratory: bilateral: CTA - Cardiovascular Rhythm: regular Heart sounds: normal: S1, S2 - Integumentary Integumentary: Present: normal turgor - Musculoskeletal Musculoskeletal: Present: gait normal - Psychiatric Psychiatric: Present: A&O x's 3, appropriate affect, intact judgment & insight - Additional findings Additional findings: Breast examination: Bra: 40C Inspection: Left breast slightly larger than right breast well-healed scars from bilateral reduction mammoplasty incisions, some skin dimpling is present at the lateral aspect of the right breast Palpation: Right breast: Multi-positional exam postoperative changes and postradiation changes, fullness lateral aspect of the right breast approximately 3 x 4 cm with skin dimpling at that site may represent fat necrosis, has increased since last visit Right axilla: No adenopathy of concern Left breast: Multi-positional exam no dominant masses or nodules of concern Left axilla: No adenopathy of concern Assessment and Plan Assessment: Impression: Right breast DCIS patient presently on an aromatase inhibitor MRI of the breast on 06-26-2024, this revealed non-mass enhancement surrounding the lumpectomy bed and extending to and involving the skin. The non-mass enhancement also extends with abnormal enhancement of the pect muscle. The entire area measures 9 x 2.8 cm. No lymphadenopathy. Left breast: Review of the dynamic contrast-enhanced series shows postsurgical changes. The mass enhancement previously seen at 6:00 has resolved. No lesions of concern Abnormal enhancement involving the lower anterior right ribs with likely nondisplaced fracture. Cholelithiasis Plan: CT of chest eluate right anterior lower ribs for abnormality seen on MRI Abnormal enhancement involving the lower left anterior right ribs this may be radiation-induced changes a CT of the chest is recommended Right breast: Increasing enhancement may represent fat necrosis targeted ultrasound biopsy recommended/done benign Left breast no lesions of concern Patient underwent a ultrasound-guided core biopsy on 07-29-2024 which revealed fibrous scar with acute and chronic mastitis and fat necrosis no evidence of malignancy Probable right breast excisional biopsy of area of firmness lateral aspect which is increasing in size clearance Dr. Barrett Cardiology pre-op clearance continue letrazole, follow with DR. Amaya follow here after CT of chest CC : DR. Barrett
== END ==
LOC: WWCWWP 08:10
PROVIDERS: ATTEND Surgery
DX: Z48.817 Encounter for surgical aftercare following surgery on the skin and subcutaneous tissue (principal); D05.11 Intraductal carcinoma in situ of right breast; N64.89 Other specified disorders of breast; K80.20 Calculus of gallbladder without cholecystitis without obstruction; N61.0 Mastitis without abscess; Z92.3 Personal history of irradiation; Z91.048 Other nonmedicinal substance allergy status; Z88.1 Allergy status to other antibiotic agents; Z88.0 Allergy status to penicillin; Z88.8 Allergy status to other drugs, medicaments and biological substances

== ENCOUNTER → 2024-09-18 | Outpatient (CLI) | payer MEDICARE ==
[2024-09-18 09:47] VITALS: BP 148/82; PULSE 72; RESP 17; TEMP 97.9
--- NOTE | 2024-09-18 10:08 | P.PN ---
Subjective Progress Note Date: 09/18/24 09-17-24 right breast DCIS 2020 Brianne is a 79 year old white female seen in consultation for Dr. 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 She had a routine mammogram bilateral mammogram which led to a right breast diagnostic mammogram performed on 8320 diagnostic mammogram revealed heterogeneous segmental calcifications. Approximately 3.5 cm at the 8 o'clock position. She underwent a stereotactic core biopsy which revealed DCIS intermediate grade. This was ER positive and WI positive. She had a right breast lumpectomy and SNB on 07-25-21. Her margins were negative, 23mm DCIS and SNB negative. The superior and inferior margins were close but after discussion with patient and her daughter they opted for radiation and hormonal therapy and close surveillance. She finished radiation therapy on September. Mammogram 05-25-2024 incomplete right breast ultrasound recommended personally interpreted Right breast ultrasound on same date felt to be incomplete the area of palpable concern of the right breast the axilla of the right breast in the retroareolar region were scanned at the site of clinical concern 6 cm from the nipple there was an area of decreased echogenicity which could reflect lumpectomy cavity site however underlying mass was not excluded and an MRI was recommended MRI of the breast on 06-26-2024, this revealed non-mass enhancement surrounding the lumpectomy bed and extending to and involving the skin. The non-mass enhancement also extends with abnormal enhancement of the pec muscle. The entire area measures 9 x 2.8 cm. No lymphadenopathy. Left breast: Review of the dynamic contrast-enhanced series shows postsurgical changes. The mass enhancement previously seen at 6:00 has resolved. No lesions of concern Abnormal enhancement involving the lower anterior right ribs with likely nondisplaced fracture. Cholelithiasis Abnormal enhancement involving the lower left anterior right ribs this may be radiation-induced changes a CT of the chest is recommended/ CT done on 09-01-24 no mets Right breast: Increasing enhancement may represent fat necrosis targeted ultrasound biopsy recommended Left breast no lesions of concern Patient underwent a ultrasound-guided core biopsy on 07-29-2024 which revealed fibrous scar with acute and chronic mastitis and fat necrosis no evidence of malignancy note Dr Amaya 11-26-23 continue letrazole The patient states that an area of firmness in the lateral aspect of the right breast has increased in size. She was seen by wound care last week and they are aware if wound healing is a problem they will be available. Caffeine: 3 cups coffee/day nicotine: none; second hand smoke in the past [id number] chocolate: rare Family history: sister: lung cancer, smoker Hormonal history: Menarche: 13 , breast fed: no; age at : 17 menopause: 51 BCP: 13 years hormones: none; used fro 1 year at menopause Surgical History: 1. bilateral knee replacement 2. tubaligation 3. Bladder sling 4. Prior stereo biopsy right breast leading to an open biopsy 5. Right breast lumpectomy via reduction mammoplasty incision secondary to DCIS, left breast reduction mammoplasty Medical History: 1. leaking cardiac valve Social History: nicotine: Negative Alcohol: 2-3 drinks wine or vodka/ 6 days /week drugs: none - Constitutional Constitutional: Denies chills, Denies fever - EENT Eyes: denies blurred vision, denies pain Ears: bilateral: decreased hearing, deny: tinnitus Ears, nose, mouth and throat: Reports headache, Denies sore throat - Breasts Breasts: bilateral: as per HPI - Cardiovascular Comment: leaking aortic valve/ uses aspirin daily, high cholesterol Cardiovascular: Reports high blood pressure, Reports shortness of breath, Denies chest pain - Respiratory Comment: chronic cough Respiratory: Reports cough - Gastrointestinal Gastrointestinal: Reports constipation, Denies abdominal pain, Denies diarrhea, Denies nausea, Denies vomiting - Genitourinary (Female) Comment: bladder sling Genitourinary: Denies dysuria, Denies hematuria - Menstruation Menstruation: Reports postmenopausal - Musculoskeletal Musculoskeletal: Reports as per HPI - Integumentary Comment: rash on right breast - Neurological Comment: history of shingles Neurological: Denies numbness, Denies weakness - Psychiatric Psychiatric: Denies anxiety, Denies depression - Endocrine Endocrine: Denies fatigue, Denies weight change - Hematologic/Lymphatic Hematologic/Lymphatic: Reports as per HPI - Allergic/Immunologic Allergic/Immunologic: Reports as per HPI Objective - Vital Signs Vital signs: Vital Signs Temp 97.9 F 09/18/24 09:44 Pulse 72 09/18/24 09:44 Resp 17 09/18/24 09:44 BP 148/82 09/18/24 09:44 Pulse Ox 98 09/18/24 09:44 FiO2 Intake & Output 09/17/24 09/18/24 09/18/24 18:59 06:59 18:59 Weight 73.482 kg - Constitutional General appearance: Present: cooperative - EENT Eyes: Present: EOMI ENT: Present: hearing grossly normal - Neck Neck: Present: normal ROM - Respiratory Respiratory: bilateral: CTA - Cardiovascular Rhythm: regular Heart sounds: normal: S1, S2 - Integumentary Integumentary: Present: normal turgor - Musculoskeletal Musculoskeletal: Present: gait normal - Psychiatric Psychiatric: Present: A&O x's 3, appropriate affect, intact judgment & insight - Additional findings Additional findings: Breast examination: Bra: 40C Inspection: Left breast slightly larger than right breast well-healed scars from bilateral reduction mammoplasty incisions, some skin dimpling is present at the lateral aspect of the right breast Palpation: Right breast: Multi-positional exam postoperative changes and postradiation changes, fullness lateral aspect of the right breast approximately 3 x 4 cm with skin dimpling at that site may represent fat necrosis, has increased since last visit Right axilla: No adenopathy of concern Left breast: Multi-positional exam no dominant masses or nodules of concern Left axilla: No adenopathy of concern Assessment and Plan Assessment: Impression: Right breast DCIS patient presently on an aromatase inhibitor MRI of the breast on 06-26-2024, this revealed non-mass enhancement surrounding the lumpectomy bed and extending to and involving the skin. The non-mass enhancement also extends with abnormal enhancement of the pect muscle. The entire area measures 9 x 2.8 cm. No lymphadenopathy. Left breast: Review of the dynamic contrast-enhanced series shows postsurgical changes. The mass enhancement previously seen at 6:00 has resolved. No lesions of concern Abnormal enhancement involving the lower anterior right ribs with likely nondisplaced fracture. Cholelithiasis CT of the chest nonunion right 5th rib anterior fracture no mets Plan: CT of chest evaluate right anterior lower ribs for abnormality seen on MRI/ done no mets Abnormal enhancement involving the lower left anterior right ribs this may be radiation-induced changes a CT of the chest is recommended Right breast: Increasing enhancement may represent fat necrosis targeted ultrasound biopsy recommended/done benign Left breast no lesions of concern Patient underwent a ultrasound-guided core biopsy on 07-29-2024 which revealed fibrous scar with acute and chronic mastitis and fat necrosis no evidence of malignancy right breast excisional biopsy of area of firmness lateral aspect which is increasing in size clearance Dr. Barrett Cardiology pre-op clearance continue letrazole, follow with DR. Amaya follow here after CT of chest CC : DR. Barrett
== END ==
LOC: WWCWWP 08:58
PROVIDERS: ATTEND Surgery
DX: Z48.817 Encounter for surgical aftercare following surgery on the skin and subcutaneous tissue (principal); D05.11 Intraductal carcinoma in situ of right breast; Z92.3 Personal history of irradiation; Z91.048 Other nonmedicinal substance allergy status; Z88.0 Allergy status to penicillin; Z88.1 Allergy status to other antibiotic agents; Z88.8 Allergy status to other drugs, medicaments and biological substances

== ENCOUNTER 2024-09-29 07:00 | Day surgery (SDC) | payer MEDICARE ==
[~2024-09-29 07:00] MED LIST changes: -CIPROFLOXACIN/DEXTROSE PMX 400 MG in DEXTROSE/WATER 1 200ML.BAG IVPB STA; -DEXAMETHASONE SOD PHOSPHATE 4 MG/ML 1 ML VIAL IV ONE; -GLYCOPYRROLATE 0.2 MG/ML 2 ML VIAL ONE; -HEPARIN SODIUM,PORCINE/PF 5,000 UNIT/0.5 ML SYRINGE SQ PRN; -HYDROmorphone (PF) 1 MG/ML ONE; -LACTATED RINGERS 1,000 ML IV ONE; -LACTATED RINGERS 1,000 ML IV SCH; -LIDOCAINE 1% (10MG/ML) FOR IV START INTRADERMA ONE; -LIDOCAINE 1% INJ 10MG/ML (20 ML MDV) ONE; -MIDAZOLAM 2 MG/2 ML VIAL ONE; -NEOSTIGMINE 1 MG/ML 10 ML VIAL ONE; -ONDANSETRON 4 MG/2 ML VIAL IVP ONE; -ONDANSETRON 4 MG/2 ML VIAL ONE; -PROPOFOL 10 MG/ML 20 ML VIAL IV ONE; -Pre Op ABX Message 1 EACH MISC MISCELLANE ONE; -ROCURONIUM 10 MG/ML (5 ML VIAL) IV ONE; -SUCCINYLCHOLINE CHLORIDE 100 MG/5 ML SYR IV ONE; -ePHEDrine 50 MG/ML 1 ML VIAL ONE; -fentaNYL (PF) 50 MCG/ML 2 ML AMP ONE
[2024-09-29] MEDS: IV FLUID CONTINUATION 1,000 ML IV ONE (07:20)
[2024-09-29] MEDS: ONDANSETRON 4 MG/2 ML VIAL IVP ONE (07:49)
[2024-09-29] MEDS: HEPARIN SODIUM,PORCINE 5,000 UNIT/ML 1 ML VIAL SQ PRN (07:49)
[2024-09-29] MEDS: ACETAMINOPHEN TAB 500 MG TAB PO PRN (07:49)
[2024-09-29] MEDS: DEXAMETHASONE SOD PHOSPHATE 4 MG/ML 1 ML VIAL IV ONE (07:49)
[2024-09-29] MEDS: LACTATED RINGERS 1,000 ML IV SCH (07:50)
[2024-09-29 07:53] LABS: Basophils # (A) 0.1 k/uL (0-0.2); Basophils % (A) 1 %; Eosinophils # (A) 0.2 k/uL (0-0.7); Eosinophils % (A) 3 %; HCT 42.9 % (34.0-46.0); HGB 13.7 gm/dL (11.4-16.0); Lymphocytes # (A) 1.5 k/uL (1.0-4.8); Lymphocytes % (A) 16 %; MCH 31.2 pg (25.0-35.0); MCHC 31.9 g/dL (31.0-37.0); MCV 97.8 fL (80.0-100.0); Mean Platelet Volume 8.4; Monocytes # (A) 0.5 k/uL (0-1.0); Monocytes % (A) 5 %; Neutrophils # (A) 7.2 k/uL (1.3-7.7); Neutrophils % (A) 75 %; Platelet Count 307 k/uL (150-450); RBC 4.38 m/uL (3.80-5.40); RDW 12.5 % (11.5-15.5); WBC 9.6 k/uL (3.8-10.6)
[2024-09-29 08:08] LABS: African American GFR (CKD) 64 (>60 ml/min/1.73 sqM); Anion Gap 8 mmol/L; Blood Urea Nitrogen 18 mg/dL (7-17); Calcium 9.1 mg/dL (8.4-10.2); Carbon Dioxide 28 mmol/L (22-30); Chloride 101 mmol/L (98-107); Glucose 87 mg/dL (74-99); Non-African American GFR(CKD) 55 (>60 ml/min/1.73 sqM); Potassium 3.9 mmol/L (3.5-5.1); Sodium 137 mmol/L (137-145)
[2024-09-29] MEDS ORDERED: ATROPINE SULFATE 0.1 MG/ML 10ML SYRINGE ONE (08:41)
[2024-09-29] MEDS ORDERED: ePHEDrine 50 MG/ML 1 ML VIAL ONE (08:41)
[2024-09-29] MEDS ORDERED: GLYCOPYRROLATE 0.2 MG/ML 2 ML VIAL ONE (08:41)
[2024-09-29] MEDS ORDERED: SUCCINYLCHOLINE CHLORIDE 200 MG/10 ML VIAL IV ONE (08:41)
[2024-09-29] MEDS ORDERED: HYDROmorphone (PF) 1 MG/ML ONE (08:41)
[2024-09-29] MEDS ORDERED: fentaNYL (PF) 50 MCG/ML 2 ML AMP ONE (08:41)
[2024-09-29] MEDS ORDERED: PROPOFOL 10 MG/ML 20 ML VIAL IV ONE (08:41)
[2024-09-29] MEDS ORDERED: LIDOCAINE 1% INJ 10MG/ML (20 ML MDV) ONE (08:41)
[2024-09-29] MEDS: LIDOCAINE 1% INJ 10MG/ML (30 ML VIAL-PF) SQ ONE ×2 (09:26→10:39)
--- NOTE | 2024-09-29 10:34 | P.BCAON ---
Date of Procedure: 09/29/24 Preoperative Diagnosis: Mass right breast upper outer quadrant/may be fat necrosis concern core biopsy is discordant Postoperative Diagnosis: Same Procedure(s) Performed: Right breast lumpectomy, oncoplastic tissue transfer 60 cm Anesthesia: GETA Surgeon: Ene Smith Estimated Blood Loss (ml): 10 IV fluids (ml): 600 Pathology: other Condition: stable Disposition: same day Indications for Procedure: Firm mass right breast increasing in size with discordant core biopsy Operative Findings: Dense breast tissue Description of Procedure: The patient was brought to the operative suite and following induction of anesthesia the right breast was prepped and draped in a sterile fashion. An incision was made over the area of firm hard breast tissue. Dissection was performed down into the parenchyma. Very firm tissue was identified and this was widely excised. The extent of the abnormal tissue was up into the skin and therefore a portion of skin was excised as well. The specimen was 6 x 3 cm in size. Dissection was performed inferiorly down onto the pectoralis muscle. The specimen was painted for orientation. After reassured that hemostasis was attained the wound was well irrigated. Surgicel in powder form was placed. A superior pillar 7 x 3 cm was formed. An inferior pillar 7 x 3 cm was formed. The pillars were brought together and secured using 3-0 Vicryl suture. Total oncoplastic tissue transfer 60 cm. After we are sure that hemostasis was attained the deep tissues were closed using 3-0 Vicryl suture. The skin was closed using 4-0 Monocryl. The patient tolerated the procedure in stable condition. 10 cc of 1% lidocaine were injected into the incision. Surgical glue was placed. The patient will follow-up with Dr. Franz in 1 week. The patient specimen was sent to pathology.
[2024-09-29 10:56] VITALS: RESP 14; TEMP 97.9
[2024-09-29 12:31] VITALS: PULSE 68
[2024-09-29 12:49] VITALS: BP 128/67
== END 2024-09-29 13:28 | disposition home or self-care (01) ==
LOC: OR 07:00
PROVIDERS: ATTEND Surgery
DX: N61.0 Mastitis without abscess (principal); I13.0 Hypertensive heart and chronic kidney disease with heart failure and stage 1 through stage 4 chronic kidney disease, or unspecified chronic kidney disease; I50.30 Unspecified diastolic (congestive) heart failure; N18.1 Chronic kidney disease, stage 1; I25.10 Atherosclerotic heart disease of native coronary artery without angina pectoris; E78.5 Hyperlipidemia, unspecified; I35.1 Nonrheumatic aortic (valve) insufficiency; I27.21 Secondary pulmonary arterial hypertension; M81.0 Age-related osteoporosis without current pathological fracture; R32 Unspecified urinary incontinence; G43.019 Migraine without aura, intractable, without status migrainosus; K21.9 Gastro-esophageal reflux disease without esophagitis; M19.90 Unspecified osteoarthritis, unspecified site; F41.9 Anxiety disorder, unspecified; F32.A Depression, unspecified; H61.021 Chronic perichondritis of right external ear; Z79.82 Long term (current) use of aspirin; Z79.51 Long term (current) use of inhaled steroids; Z79.811 Long term (current) use of aromatase inhibitors; Z79.83 Long term (current) use of bisphosphonates; Z79.899 Other long term (current) drug therapy; Z88.1 Allergy status to other antibiotic agents; Z91.041 Radiographic dye allergy status; Z88.0 Allergy status to penicillin; Z91.048 Other nonmedicinal substance allergy status
CPT/HCPCS: 19301; 14301; 80048; 85025; 88307; J0330; J1644; J1100; J2405; J2003 ×2; J0461; J3010; J1171; J2704; J1596

== ENCOUNTER → 2024-10-08 | Outpatient (CLI) | payer MEDICARE ==
[2024-10-08 12:54] VITALS: BP 149/94; PULSE 94; RESP 16; TEMP 98
--- NOTE | 2024-10-08 12:58 | P.BCPO ---
Progress Note - Text Progress Note Date: 10/08/24 Brianne is status post right breast biopsy on 09-28-24. Pathology was fat necrosis. Post operatively she is doing well. Exam: Clear Heart: Regular rate and rhythm Incision: Clean and dry Impression: Patient doing well postoperative Plan: Follow-up in 6 months for repeat right breast mammogram Patient will follow-up sooner any questions or concerns Post Op Education - Post Op Education Post Op Education Provided Date: 10/08/24 - Functional Assessment Performed?: Yes (arm abductioin) Path Report - Was patient given path report? Path Report Date Given: 10/08/24
== END ==
LOC: WWCWWP 12:20
PROVIDERS: ATTEND Surgery
DX: N63.10 Unspecified lump in the right breast, unspecified quadrant (principal); Z88.0 Allergy status to penicillin; Z88.1 Allergy status to other antibiotic agents; Z91.048 Other nonmedicinal substance allergy status; Z88.8 Allergy status to other drugs, medicaments and biological substances

== ENCOUNTER 2024-11-17 08:57 | Emergency (ER) | payer MEDICARE ==
--- NOTE | 2024-11-17 09:28 | ED ---
General Adult HPI - General Chief complaint: Recheck/Abnormal Lab/Rx Stated complaint: infection Time Seen by Provider: 11/17/24 09:03 Source: patient, EMS Mode of arrival: EMS Limitations: no limitations - History of Present Illness Initial comments: Dictation was produced using [employer] dictation software. please excuse any grammatical, word or spelling errors. Chief Complaint: 79-year-old female presents with drainage from right breast wound History of Present Illness: Patient is a 71-year-old female states that for the last couple days she has been having fluid drainage from her right breast wound. She states that September 29 she had a lumpectomy done by Dr. Smith our local breast surgeon. States that she has associated l chills and low-grade fever. Does report that the pain seems to be worse than usual. She does have chronic scar tissue in the area. The ROS documented in this emergency department record has been reviewed and c onfirmed by me. Those systems with pertinent positive or negative responses have been documented in the HPI. All other systems are other negative and/or noncontributory. - Related Data Home Medications Medication Instructions Recorded Confirmed Omeprazole [PriLOSEC] 20 mg PO DAILY 04/02/14 11/17/24 nadoloL [Corgard] 40 mg PO HS 04/02/14 11/17/24 Atorvastatin Calcium [Lipitor] 20 mg PO DAILY 08/21/17 11/17/24 Cholecalciferol [Vitamin D3 (10 10 mcg PO DAILY 07/24/21 11/17/24 Mcg = 400 Iu)] Ascorbic Acid/Collagen Hydr 1 cap PO DAILY 08/10/21 11/17/24 [Collagen Plus Vit C Capsule] Calcium Carbonate [Calcium] 600 mg PO DAILY 08/10/21 11/17/24 Citalopram Hydrobromide 40 mg PO DAILY 11/17/21 11/17/24 [Citalopram HBr] Letrozole 2.5 mg PO DAILY 11/17/21 11/17/24 Vitamin C/Biotin [Hair, Skin and 1 tab PO DAILY 09/22/24 11/17/24 Nails Chew] Biotin 5,000 mcg PO DAILY 11/17/24 11/17/24 Cyanocobalamin (Vitamin B-12) 1,000 mcg PO DAILY 11/17/24 11/17/24 [Vitamin B-12] Oxybutynin Chloride [oxyBUTYnin 15 mg PO DAILY 11/17/24 11/17/24 chloride ER] SUMAtriptan succinate [Imitrex] 25 mg PO DAILY PRN 11/17/24 11/17/24 buPROPion XL [Wellbutrin XL] 300 mg PO DAILY 11/17/24 11/17/24 lisinopriL [Zestril] 40 mg PO DAILY 11/17/24 11/17/24 Previous Rx's Medication Instructions Recorded Levofloxacin [Levaquin] 750 mg PO DAILY 5 Days #5 tab 11/17/24 Allergies Allergy/AdvReac Type Severity Reaction Status Date / Time adhesive tape Allergy Intermediate Itching Verified 11/17/24 11:54 amoxicillin Allergy Rash/Hives Verified 11/17/24 11:54 cephalexin Allergy Rash/Hives Verified 11/17/24 11:54 clindamycin Allergy Rash/Hives Verified 11/17/24 11:54 iodine Allergy Itching Verified 11/17/24 11:54 povidone-iodine Allergy Itching Verified 11/17/24 11:54 [From Betadine] tetracycline [Tetracycline] AdvReac Severe Nausea & Verified 11/17/24 11:54 Vomiting Review of Systems ROS Statement: Those systems with pertinent positive or pertinent negative responses have been documented in the HPI. ROS Other: All systems not noted in ROS Statement are negative. Past Medical History Past Medical History: GERD/Reflux, Hyperlipidemia, Hypertension Additional Past Medical History / Comment(s): migraines, aortic valve leakage, breast cancer, bladder leakage History of Any Multi-Drug Resistant Organisms: None Reported Past Surgical History: Bladder Surgery, Breast Surgery, Joint Replacement, Tubal Ligation Additional Past Surgical History / Comment(s): ANDRZEJ KNEE REPLACEMENT, BLADDER SLING, breast biopsy and reduction Past Anesthesia/Blood Transfusion Reactions: No Reported Reaction Past Psychological History: No Psychological Hx Reported Smoking Status: Never smoker Past Alcohol Use History: Daily Past Drug Use History: None Reported - Past Family History Sister(s) Family Medical History: Cancer, Pulmonary Embolus Additional Family Medical History / Comment(s): lung cancer General Exam - General Exam Comments Initial Comments: PHYSICAL EXAM: General Impression: Alert and oriented x3, not in acute distress HEENT: Normocephalic atraumatic, extra-ocular movements intact, pupils equal and reactive to light bilaterally, mucous membranes moist. Cardiovascular: Heart regular rate and rhythm Chest: Able to complete full sentences, no retractions, no tachypnea Abdomen: abdomen soft, non-tender, non-distended, no organomegaly Musculoskeletal: Pulses present and equal in all extremities, no peripheral edema Motor: no focal deficits noted Neurological: CN II-XII grossly intact, no focal motor or sensory deficits noted Skin: Intact with no visualized rashes Psych: Normal affect and mood Right breast: Indurated right breast, there does appear to be a chronic wound at the 8 o'clock position with drainage of serosanguineous fluid. No overlying erythema Limitations: no limitations Course Vital Signs 11/17/24 11/17/24 11/17/24 09:05 09:20 10:31 Temperature 99.0 F 99.0 F Pulse Rate 65 60 Respiratory 17 17 17 Rate Blood Pressure 149/62 157/62 O2 Sat by Pulse 96 100 Oximetry - Reevaluation(s) Reevaluation #1: 11/17/24 11:[address] Osei Reeves who operated on the patient request that patient have needle aspiration and follow-up in the office. 11/17/24 12:25 Procedures - Incision & Drainage Consent Obtained: verbal consent Indication: draining breast wound Site: other (right breast) Anesthetic Used: lidocaine 1% I&D Cleaning Method: Alcohol Wipe Needle Aspiration Performed?: Yes (serous fluid) I&D Drainage Obtained: Serous Culture Obtained?: Yes Patient Tolerated Procedure: well Medical Decision Making - Medical Decision Making Was pt. sent in by a medical professional or institution (, PA, [facility], urgent care, hospital, or halfway...) When possible be specific @ -No Did you speak to anyone other than the patient for history (EMS, parent, family, police, friend...)? What history was obtained from this source @ -No Did you review nursing and triage notes (agree or disagree)? Why? @ -I reviewed and agree with nursing and triage notes Were old charts reviewed (outside hosp., previous admission, EMS record, old EKG, old radiological studies, urgent care reports/EKG's, halfway records)? Report findings @ -No old charts were reviewed Differential Diagnosis (chest pain, altered mental status, abdominal pain women, abdominal pain men, vaginal bleeding, musculoskeletal, weakness, fever, dyspnea, syncope, headache, dizziness, GI bleed, back pain, seizure, CVA, palpatations, mental health)? @ -Breast abscess, breast seroma, breast cellulitis EKG interpreted by me (3pts min.). @ -None done X-rays interpreted by me (1pt min.). @ -None done CT interpreted by me (1pt min.). @ -None done U/S interpreted by me (1pt. min.). @ -Ultrasound shows complex fluid collection in the right breast What testing was considered but not performed or refused? (CT, X-rays, U/S, labs)? Why? @ -None What meds were considered but not given or refused? Why? @ -None Was smoking cessation discussed for >3mins.? @ -No Were there social determinants of health that impacted care today? How? (Homelessness, low income, unemployed, alcoholism, drug addiction, transportation, low edu. Level, literacy, decrease access to med. care, prison, rehab)? @ -No Was there de-escalation of care discussed even if they declined (Discuss DNR or withdrawal of care, Hospice)? DNR status @ -No What co-morbidities impacted this encounter? (DM, HTN, Smoking, COPD, CAD, Cancer, CVA, ARF, Chemo, Hep., AIDS, mental health diagnosis, sleep apnea, morbid obesity)? @ -Scar tissue of the breast Was patient admitted / discharged? Hospital course, mention meds given and route, prescriptions, significant lab abnormalities, going to OR and other pertinent info. @ -79-year-old female presents to the emergency department with drainage coming from breast wound. Vital signs stable. Patient reports some chills however does not have any fever. Vital signs are otherwise stable. Labs are unremarkable. No white count. Rest of labs unremarkable. Case discussed with breast surgeon request that we need to aspirate the patient started on antibiotics and she will follow-up in office. Did you discuss the management of the patient with other professionals (professionals i.e. , PA, [facility], lab, RT, psych nurse, social problems specialist, clinical psychologist licensed, teacher, protective officer, manager case)? Give summary @ -No Was critical care preformed (if so, how long)? @ -No Undiagnosed new problem with uncertain prognosis? @ -No Drug Therapy requiring intensive monitoring for toxicity (Heparin, Nitro, Insulin, Cardizem)? @ -No Were any procedures done? @ -No Diagnosis/symptom? Acute, or Chronic, or Acute on Chronic? Uncomplicated (without systemic symptoms) or Complicated (systemic symptoms)? @ -Draining breast wound Side effects of treatment? @ -No Exacerbation, Progression, or Severe Exacerbation? @ -No Poses a threat to life or bodily function? How? (Chest pain, [place], [place], pneumonia, PE, COPD, DKA, ARF, appy, cholecystitis, CVA, Diverticulitis, Homicidal, Suicidal, threat to staff... and all critical care pts) @ -No - Lab Data Result diagrams: 11/17/24 09:35 11/17/24 09:35 Lab Results 11/17/24 11/17/24 Range/Units 09:35 09:35 WBC 9.1 (3.8-10.6) k/uL RBC 3.95 (3.80-5.40) m/uL Hgb 12.2 (11.4-16.0) gm/dL Hct 37.7 (34.0-46.0) % MCV 95.4 (80.0-100.0) fL MCH 30.9 (25.0-35.0) pg MCHC 32.4 (31.0-37.0) g/dL RDW 12.5 (11.5-15.5) % Plt Count 312 (150-450) k/uL MPV 7.6 Neutrophils % 76 % Lymphocytes % 12 % Monocytes % 7 % Eosinophils % 3 % Basophils % 0 % Neutrophils # 6.9 (1.3-7.7) k/uL Lymphocytes # 1.1 (1.0-4.8) k/uL Monocytes # 0.7 (0-1.0) k/uL Eosinophils # 0.2 (0-0.7) k/uL Basophils # 0.0 (0-0.2) k/uL Sodium 137 (137-145) mmol/L Potassium 4.6 (3.5-5.1) mmol/L Chloride 101 (98-107) mmol/L Carbon Dioxide 32 H (22-30) mmol/L Anion Gap 4 mmol/L BUN 13 (7-17) mg/dL Creatinine 0.87 (0.52-1.04) mg/dL Est GFR (CKD-EPI)AfAm 74 (>60 ml/min/1.73 sqM) Est GFR (CKD-EPI)NonAf 64 (>60 ml/min/1.73 sqM) Glucose 116 H (74-99) mg/dL Calcium 9.2 (8.4-10.2) mg/dL Disposition Clinical Impression: Seroma of breast Disposition: HOME SELF-CARE Condition: Fair Prescriptions: Levofloxacin [Levaquin] 750 mg PO DAILY 5 Days #5 tab Is patient prescribed a controlled substance at d/c from ED?: No Referrals: Ene Smith MD [STAFF PHYSICIAN] - 1-2 days
[2024-11-17 09:50] LABS: Basophils % (A) 0 %; Eosinophils # (A) 0.2 k/uL (0-0.7); Eosinophils % (A) 3 %; HCT 37.7 % (34.0-46.0); HGB 12.2 gm/dL (11.4-16.0); Lymphocytes # (A) 1.1 k/uL (1.0-4.8); Lymphocytes % (A) 12 %; MCH 30.9 pg (25.0-35.0); MCHC 32.4 g/dL (31.0-37.0); MCV 95.4 fL (80.0-100.0); Mean Platelet Volume 7.6; Monocytes # (A) 0.7 k/uL (0-1.0); Monocytes % (A) 7 %; Neutrophils # (A) 6.9 k/uL (1.3-7.7); Neutrophils % (A) 76 %; Platelet Count 312 k/uL (150-450); RBC 3.95 m/uL (3.80-5.40); RDW 12.5 % (11.5-15.5); WBC 9.1 k/uL (3.8-10.6)
[2024-11-17 10:21] LABS: African American GFR (CKD) 74 (>60 ml/min/1.73 sqM); Anion Gap 4 mmol/L; Blood Urea Nitrogen 13 mg/dL (7-17); Calcium 9.2 mg/dL (8.4-10.2); Carbon Dioxide 32 mmol/L (22-30); Chloride 101 mmol/L (98-107); Glucose 116 mg/dL (74-99); Non-African American GFR(CKD) 64 (>60 ml/min/1.73 sqM); Potassium 4.6 mmol/L (3.5-5.1); Sodium 137 mmol/L (137-145)
--- NOTE | 2024-11-17 11:09 | USB ---
Reason for Exam: Clinical finding. Patient History: Menarche at age 13. First Full-Term at age 17. Postmenopausal. Breast cancer, right, age 76. Previous chest radiation therapy. Patient used Estrogen for 3 years. Patient used Progesterone for 3 years. Patient used Hormonal Contraceptives for 13 years. 07/29/2024, Benign US biopsy breast VAD RT on the right side. 2021, Bilateral Reduction. 07/25/2021, Lumpectomy on the Right side. 12/13/2021, Benign Core Biopsy on the right side. 12/13/2021, Benign Core Biopsy on the right side. 07/25/2021, Malignant Core Biopsy on the right side. 06/05/2021, Malignant Core Biopsy on the right side. 10/18/2014, Benign Core Biopsy on the right side. 10/04/2014, Benign Core Biopsy on the right side. 2021, Radiation Therapy on the right side. Technique: Method: Targeted. Prior Study Comparison: 05/22/2023 Bilateral MG 3D diag mammo w/cad ANDRZEJ, [facility]. 05/25/2024 Bilateral MG 3D diag mammo w/cad ANDRZEJ, [facility]. 07/29/2024 Right MG diagnostic mammo RT wo CAD, [facility]. Findings: The area of palpable concern of the right breast, the axilla of the right breast and the retroareolar of the right breast were scanned. Targeted ultrasound of the patient's right breast lumpectomy site corresponding to the site of drainage 10:00 position, 2 cm from the nipple. Underlying this, there is a complex fluid collection measuring 8.4 x 3.2 x 5.0 cm. No significant hyperemia is identified. No axillary adenopathy. Some of the fluid extends behind the nipple. Overall Assessment: Probably benign, BI-RAD 3 Management: Diagnostic Breast Ultrasound of the right breast in 3 months. Ultrasound findings showing an 8.4 cm complex fluid collection at the right breast lumpectomy site, likely large postoperative seroma. Correlate to exclude the possibility of infective fluid. Follow-up ultrasound in 3 months to reassess. Drainage versus percutaneous aspiration as clinically indicated. Results were given to the patient verbally at the time of exam. [facility], , 11/17/2024 10:17 AM. Electronically signed and approved by: Arnaldo Gould M.D. Radiologist
[2024-11-17] MEDS ORDERED: LIDOCAINE 1%-EPI 1:100,000 20 ML VIAL SQ STA (12:15)
[2024-11-17 13:06] VITALS: BP 159/72; PULSE 86; RESP 18; TEMP 98.7
== END 2024-11-17 13:08 | disposition home or self-care (01) ==
LOC: EC 08:57
DX: N64.89 Other specified disorders of breast (principal); L90.5 Scar conditions and fibrosis of skin; Z88.0 Allergy status to penicillin; Z88.1 Allergy status to other antibiotic agents; Z91.09 Other allergy status, other than to drugs and biological substances; Z88.8 Allergy status to other drugs, medicaments and biological substances
CPT/HCPCS: 10140; 36415; 80048; 85025; 87070; 87205; 99284

== ENCOUNTER → 2024-11-24 | Outpatient (CLI) | payer MEDICARE ==
--- NOTE | 2024-11-24 15:01 | P.PN ---
Subjective Progress Note Date: 11/24/24 Brianne is status post right breast biopsy on 09-28-24. Pathology was fat necrosis. Post operatively she did well until 11-17-2024 when she noticed some drainage from the incision site. She was seen in the emergency room and a seroma was aspirated. She presents today for evaluation of her incision. Exam: Clear Heart: Regular rate and rhythm Incision: Clean and dry Open at the medial aspect of the incision with some serous drainage Plan: Aspiration of seroma reinforcement of wound Following informed consent the area of concern was prepped using alcohol. An 18-gauge needle and a 20 cc syringe was used to aspirate approximately 20 cc of straw-colored fluid. Additional fluid extruded from the area of the incision with manipulation. There was a small opening that was identified in the medial aspect of the incision and this was probed with a sterile Q-tip. Again a small amount of serous drainage was identified. The wound was reinforced using nylon suture. The patient tolerated the procedure in stable condition. The patient will follow-up in 1 week for repeat evaluation. Ro Barrett
== END ==
LOC: WWCWWP 10:16
PROVIDERS: ATTEND Surgery
DX: Z90.11 Acquired absence of right breast and nipple (principal); Z88.1 Allergy status to other antibiotic agents; Z88.0 Allergy status to penicillin; Z91.09 Other allergy status, other than to drugs and biological substances; Z91.041 Radiographic dye allergy status

== ENCOUNTER → 2024-12-24 | Outpatient (CLI) | payer MEDICARE ==
[2024-12-24 09:15] VITALS: BP 134/68; PULSE 99; RESP 17; TEMP 98.2
--- NOTE | 2024-12-24 09:29 | P.PN ---
Subjective Progress Note Date: 12/24/24 12-24-24 Brianne was seen on 12-03-24 she is status post right breast biopsy on 09-28-24. Pathology was fat necrosis. Post operatively she did well until 11-17-2024 when she noticed some drainage from the incision site. She was seen in the emergency room and a seroma was aspirated. She was seen in the office on 11-24-2024. Following informed consent approximately 20 cc of straw-colored fluid was aspirated on that date. Several small sutures were placed near the site of the incision. Following informed consent on 11-24-24 the area of concern was prepped using alcohol. An 18-gauge needle and a 20 cc syringe was used to aspirate approximately 20 cc of straw-colored fluid. Additional fluid extruded from the area of the incision with manipulation. There was a small opening that was identified in the medial aspect of the incision and this was probed with a sterile Q-tip. Again a small amount of serous drainage was identified. The wound was reinforced using nylon suture. The patient tolerated the procedure in stable condition. The patient will follow-up in 1 week for repeat evaluation. Patient ween by wound clinic on 12-22-24, wound scraped and given a medicated dressing for packing home care on and Saturdays nad will be seen at would clinic every two weeks Exam: Clear Heart: Regular rate and rhythm Incision: Clean and dry Open at the medial aspect of the incision with some serous drainage; probed 18 mm deep Impression: Chronic open wound medial aspect of incision right breast This was probed today 18 mm deep Plan: Wound packing as per wound clinic Home health care to see patient CC: Dr. Barrett Objective - Vital Signs Vital signs: Vital Signs Temp 98.2 F 12/24/24 09:12 Pulse 99 12/24/24 09:12 Resp 17 12/24/24 09:12 BP 134/68 12/24/24 09:12 Pulse Ox 95 12/24/24 09:12 FiO2 Intake & Output 12/23/24 12/24/24 12/24/24 18:59 06:59 18:59 Weight 73.482 kg
== END ==
LOC: WWCWWP 08:59
PROVIDERS: ATTEND Surgery
DX: S21.001A Unspecified open wound of right breast, initial encounter (principal); Z91.09 Other allergy status, other than to drugs and biological substances; Z88.0 Allergy status to penicillin; Z88.1 Allergy status to other antibiotic agents; Z91.041 Radiographic dye allergy status

== ENCOUNTER → 2025-01-28 | Outpatient (CLI) | payer MEDICARE ==
[2025-01-28 12:44] VITALS: BP 134/67; PULSE 65; RESP 16; TEMP 98.5
--- NOTE | 2025-01-28 12:51 | P.PN ---
Subjective Progress Note Date: 01/28/25 12/24/24 Brianne was seen on 12-03-24 she is status post right breast biopsy on 09-28-24. Pathology was fat necrosis. Post operatively she did well until 11-17-2024 when she noticed some drainage from the incision site. She was seen in the emergency room and a seroma was aspirated. She was seen in the office on 11-24-2024. Following informed consent approximately 20 cc of straw-colored fluid was aspirated on that date. Several small sutures were placed near the site of the incision. Following informed consent on 11-24-24 the area of concern was prepped using alcohol. An 18-gauge needle and a 20 cc syringe was used to aspirate approximately 20 cc of straw-colored fluid. Additional fluid extruded from the area of the incision with manipulation. There was a small opening that was identified in the medial aspect of the incision and this was probed with a sterile Q-tip. Again a small amount of serous drainage was identified. The wound was reinforced using nylon suture. The patient tolerated the procedure in stable condition. The patient will follow-up in 1 week for repeat evaluation. 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 Pathology was fat necrosis. Post operatively she did well until 11-17-2024 when she noticed some drainage from the incision site. She was seen in the emergency room and a seroma was aspirated. She was seen in the office on 11-24-2024. Following informed consent approximately 20 cc of straw-colored fluid was aspirated on that date. Several small sutures were placed near the site of the incision. Following informed consent on 11-24-24 the area of concern was prepped using alcohol. An 18-gauge needle and a 20 cc syringe was used to aspirate approximately 20 cc of straw-colored fluid. Additional fluid extruded from the area of the incision with manipulation. There was a small opening that was identified in the medial aspect of the incision and this was probed with a sterile Q-tip. Again a small amount of serous drainage was identified. The wound was reinforced using nylon suture. The patient tolerated the procedure in stable condition. The patient will follow-up in 1 week for repeat evaluation. Patient seen by wound clinic on 12-22-24, wound scraped and given a medicated dressing for packing home care on and Saturdays and will be seen at would clinic every two weeks Breast MRI on 06-26-24 led to a targeted ultrasound and biopsy on 07-29-24 of the right breast; this was benign, but patient had an open biopsy of the right breast on 09-28-24 She is seen with home care twice a week adn in the wound clinic every two weeks; they are now packing with honey Probed, it is 4 cm in depth Exam: Clear Heart: Regular rate and rhythm Incision: Clean and dry; wound probed 4 cm in depth Open at the medial aspect of the incision with some serous drainage; probed 40 mm deep Impression: Chronic open wound medial aspect of incision right breast This was probed today 40 mm deep Plan: Wound packing as per wound clinic Home health care to see patient Paramjit in March with appointment at that time Patient will follow-up sooner any questions or concerns CC: Dr. Barrett
== END ==
LOC: WWCWWP 12:06
PROVIDERS: ATTEND Surgery
DX: S21.001A Unspecified open wound of right breast, initial encounter (principal); Z88.1 Allergy status to other antibiotic agents; Z91.041 Radiographic dye allergy status; Z91.048 Other nonmedicinal substance allergy status; X58.XXXA Exposure to other specified factors, initial encounter

== ENCOUNTER → 2025-03-02 | Outpatient (CLI) | payer MEDICARE ==
--- NOTE | 2025-03-05 08:50 | BMR ---
EXAM DATE: 03/02/2025 EXAM DESCRIPTION: MRI-Breast Bilat (W/WO Contrast) INDICATION: Remote history of right breast cancer status post breast conserving therapy. Recent excisional biopsy on 09/28/2024 with benign pathology results. Clinical concern of skin bulging and fluid drainage from surgical site. COMPARISON: Comparison was made to prior relevant imaging available in PACS TECHNIQUE: Multiplanar multisequence breast MRI was performed prior to and after administration of 7 mL of Gadabutrol intravenously. Post processing was performed utilizing a [employer] workstation. The technical portion of this study was performed at [facility] with radiological interpretation by [facility] radiology. FINDINGS: There is minimal, symmetric background parenchymal enhancement in breasts that are composed of scattered fibroglandular tissue.. RIGHT BREAST: Review of the dynamic contrast enhanced series shows post surgical changes. Marked non mass enhancement surrounding the lumpectomy bed extending and involving the skin with abnormal enhancement extending to the pectorals major muscle. Overall the extent of abnormality measures 8.2 x 4.2 x 4.1 cm (series 601, image 158 and series 504, image 320) LEFT BREAST: Review of the dynamic contrast enhanced series shows no rapidly enhancing masses, suspicious enhancement pattern or other abnormalities. Focal non mass enhancement in the central mid depth of the breast is not appreciably changed when compared to 10/10/2023. The T2 weighted series show no abnormality. LYMPH NODES: No axillary or internal mammary lymphadenopathy. Incidentals: Similar abnormal enhancement involving the lower anterolateral right-sided ribs. Cholelithiasis. IMPRESSION: 1. Right breast: BI-RADS Category 2-benign. * postsurgical changes with marked non mass enhancement surrounding the lumpectomy bed extending and involving the skin with abnormal enhancement extending to the pectoralis major with overall measurement 8.2 x 4.2 x 4.1 cm. Given benign pathology results from recent excisional biopsy, this likely represents evolving fat necrosis/postsurgical changes. Given reported drainage from surgical site superimposing infection cannot be excluded. Recommend clinical follow-up. * no definitive evidence of malignancy in the right breast. 2. Left breast: BI-RADS Category 1-negative. * no MR evidence of malignancy. 3. Similar enhancement involving the lower anterolateral right-sided ribs. Correlate with clinical history and CT chest if needed. OVERALL ASSESSMENT- BI-RADS 2 MTDD
== END | disposition home or self-care (01) ==
LOC: RADMRIMAIN 05:49
PROVIDERS: ATTEND Family Medicine
DX: M25.18 Fistula, other specified site (principal); Z85.3 Personal history of malignant neoplasm of breast
CPT/HCPCS: 77049; A9585